=== PATIENT | female | born 1955 | race Caucasian/White ===

== ENCOUNTER 2016-08-21 12:40 | Emergency (ER) | payer OTHER ==
[~2016-08-21] VITALS: Ht 162.6 cm; Wt 88.9 kg
[~2016-08-21 12:40] MED LIST: ATOR1TAB18 PO; CANA100T PO; CARV12.52 PO; CYCL1TAB29 PO; FLUO40CA PO; GABA300C5 PO; GLIP5TAB8 PO; HYDR-3533 PO; HYDR25TA5 PO; LEVO-154 PO; LISI40TA PO; METF1000 PO; XANA1TAB2 PO
[2016-08-21 12:50] VITALS: BP 192/104; PULSE 78; RESP 16; TEMP 98.2; O2SAT 97
[2016-08-21] MEDS ORDERED: DICL75TA PO ×2 (13:48→14:57)
[2016-08-21] MEDS ORDERED: ZANT150T2 PO ×2 (13:48→14:57)
[2016-08-21] MEDS ORDERED: ASPI1TAB69 PO ×2 (13:48→14:57)
[2016-08-21] MEDS ORDERED: SERT-129 PO ×2 (13:48→14:57)
[2016-08-21] MEDS ORDERED: SODIUM CHLORIDE 0.9% FLUSH 5 ML FLUSH IVF PRN (14:00)
[2016-08-21] MEDS ORDERED: ASPIRIN 81 MG CHEW TAB PO ONE (14:00)
[2016-08-21] MEDS ORDERED: LORazepam 2 MG/ML VIAL IV PUSH ONE (14:00)
[2016-08-21 14:14] LABS: AUTOMATED NEUTROPHIL # 4.9 TH/MM3 (1.8-7.7); BASOPHIL % 0.5 % (0.0-2.0); EOSINOPHIL # 0.3 TH/MM3 (0-0.4); EOSINOPHIL % 4.2 % (0.0-4.0); HEMATOCRIT 39.5 % (35.0-46.0); HEMO FLAGS DIFF FINAL; LYMPH % 27.7 % (9.0-44.0); LYMPHOCYTE # 2.1 TH/MM3 (1.0-4.8); MEAN CELL VOLUME 89.8 FL (80.0-100.0); MEAN CORPUSCULAR HEMOGLOBIN 30.1 PG (27.0-34.0); MEAN CORPUSCULAR HGB CONC 33.5 % (32.0-36.0); MONO % 5.1 % (0.0-8.0); NEUT % 62.5 % (16.0-70.0); PLATELET COUNT 215 TH/MM3 (150-450); RED BLOOD COUNT 4.39 MIL/MM3 (4.00-5.30); RED CELL DISTRIBUTION WIDTH 12.7 % (11.6-17.2); WHITE BLOOD COUNT 7.7 TH/MM3 (4.0-11.0)
--- NOTE | 2016-08-21 14:19 | PD ---
HPI . Medication refill request Chief Complaint: Chest Pain Time Seen by Provider: 13:53 Travel History International Travel<30 days: No Contact w/Intl Traveler<30days: No Traveled to known affect area: No History of Present Illness HPI Patient presents with multiple complaints. She states that she has been out of her medication for at least a month. She states that she lost her usual insurance at the first of the year. This has caused her to lose her primary care physician. She states that she does have new insurance in place and has an appointment her physician on September 21. In the meantime however she has run out of all of her medications. Her complaints today include insomnia, poor concentration, weight gain, chest pain, shortness of breath, headache and blurred vision. DURATION: One month TIMING: Continuous CONTEXT: Out of medications MODIFYING FACTORS: Lost her insurance PFSH Past Medical History Hx Anticoagulant Therapy: Yes (asa 81mg) Arthritis: Yes (RHEUMATOID AND OSTEO) Asthma: Yes Anxiety: Yes Depression: Yes Heart Rhythm Problems: No Cancer: No Cardiac Catheterization: No Cardiovascular Problems: Yes (htn on meds) High Cholesterol: Yes Congestive Heart Failure: Yes COPD: Yes Diabetes: Yes Patient Takes Glucophage: No Diminished Hearing: No GERD: Yes Hypertension: Yes Implanted Vascular Access Dvce: No Kidney Stones: Yes Musculoskeletal: Yes (CHRONIC PAIN) Respiratory: Yes (copd, chf) Immunizations Current: Yes Myocardial Infarction: No Seizures: Yes (after surgery ) Thyroid Disease: Yes (Hypo-) Tetanus Vaccination: > 5 Years Influenza Vaccination: Yes ?: Not Menopausal: Yes Dilation and Curettage (D&C): Yes Tubal Ligation: Yes Past Surgical History Abdominal Surgery: Yes (exploratory lap) Cholecystectomy: Yes Coronary Artery Bypass Graft: No Tonsillectomy: Yes (and adenoids) Other Surgery: Yes Social History Alcohol Use: No Tobacco Use: Yes (1 ppd) Substance Use: No Allergies-Medications (Allergen,Severity, Reaction): Coded Allergies: Clindamycin (Verified Allergy, Severe, RASH, 08/21/16) Penicillin (Verified Allergy, Severe, "FACE SWELLS UP", 08/21/16) Reported Meds & Prescriptions Reported Meds & Active Scripts Active Reported Zantac (Ranitidine HCl) 150 Mg Tab 150 Mg PO DAILY Aspirin 81 Mg Tabdr 81 Mg PO DAILY Sertraline (Sertraline HCl) 100 Mg Tab 100 Mg PO DAILY Diclofenac Sodium DR (Diclofenac Sodium) 75 Mg Tabdr 75 Mg PO BID Xanax (Alprazolam) 1 Mg Tab 1 Mg PO TID PRN Metformin (Metformin HCl) 1,000 Mg Tab 1,000 Mg PO BIDPC With meals Lisinopril 40 Mg Tab 40 Mg PO DAILY Levothyroxine (Levothyroxine Sodium) 175 Mcg Tab 175 Mcg PO DAILY Invokana (Canagliflozin) 100 Mg Tab Unknown Dose PO DAILY Take before 1st meal of day. Hydrochlorothiazide 25 Mg Tab 25 Mg PO DAILY Glipizide 5 Mg Tab 5 Mg PO BIDAC Take 30 minutes before a meal Flexeril (Cyclobenzaprine HCl) 10 Mg Tab 10 Mg PO HS Carvedilol 12.5 Mg Tab 12.5 Mg PO BID Atorvastatin (Atorvastatin Calcium) 80 Mg Tab 80 Mg PO HS Review of Systems Except as stated in HPI: all other systems reviewed are Neg General / Constitutional: Positive: Weight Gain, No: Fever, Chills Eyes: Positive: Blurred Vision HENT: Positive: Headaches Cardiovascular: Positive: Chest Pain or Discomfort Respiratory: Positive: Shortness of Breath Neurologic: Positive: Headache, No: Focal Abnormalities Psychiatric: Positive: Anxiety, Depression, Other (poor concentration) Physical Exam Narrative GENERAL: Tearful older woman who is otherwise in no acute distress. SKIN: Warm and dry. HEAD: Atraumatic. Normocephalic. EYES: Pupils equal and round. ENT: No nasal bleeding or discharge. Mucous membranes pink and moist. NECK: Trachea midline. Neck is supple. CARDIOVASCULAR: Regular rate and rhythm. Heart sounds are normal. RESPIRATORY: No accessory muscle use. Lungs are clear with full air movement throughout. GASTROINTESTINAL: Abdomen soft, non-tender, nondistended. MUSCULOSKELETAL: No obvious deformities. No edema. NEUROLOGICAL: Awake and alert. No obvious cranial nerve deficits. Motor grossly within normal limits. Normal speech. [id number] exam is intact. Gait is normal. PSYCHIATRIC: Appropriate mood and affect; insight and judgment normal. Data Data Last Documented VS Vital Signs Date Time Temp Pulse Resp B/P Pulse Ox O2 Delivery O2 Flow Rate FiO2 08/21/16 13:41 78 08/21/16 12:50 98.2 16 192/104 97 Orders Basic Metabolic Panel (Bmp) (08/21/16 13:58) Ckmb (Isoenzyme) Profile (08/21/16 13:58) Complete Blood Count With Diff (08/21/16 13:58) Magnesium (Mg) (08/21/16 13:58) Troponin I (08/21/16 13:58) Chest, Single Ap (08/21/16 13:58) Iv Access Insert/Monitor (08/21/16 13:58) Aspirin Chew (Aspirin Chew) (08/21/16 14:00) Sodium Chloride 0.9% Flush (Ns Flush) (08/21/16 14:00) Lorazepam Inj (Ativan Inj) (08/21/16 14:00) Thyroid Stimulating Hormone (08/21/16 13:58) CKMB (08/21/16 14:07) CKMB% (08/21/16 14:07) Labs Laboratory Tests Test 08/21/16 14:07 White Blood Count 7.7 TH/MM3 Red Blood Count 4.39 MIL/MM3 Hemoglobin 13.2 GM/DL Hematocrit 39.5 % Mean Corpuscular Volume 89.8 FL Mean Corpuscular Hemoglobin 30.1 PG Mean Corpuscular Hemoglobin 33.5 % Concent Red Cell Distribution Width 12.7 % Platelet Count 215 TH/MM3 Mean Platelet Volume 9.1 FL Neutrophils (%) (Auto) 62.5 % Lymphocytes (%) (Auto) 27.7 % Monocytes (%) (Auto) 5.1 % Eosinophils (%) (Auto) 4.2 % Basophils (%) (Auto) 0.5 % Neutrophils # (Auto) 4.9 TH/MM3 Lymphocytes # (Auto) 2.1 TH/MM3 Monocytes # (Auto) 0.4 TH/MM3 Eosinophils # (Auto) 0.3 TH/MM3 Basophils # (Auto) 0.0 TH/MM3 CBC Comment DIFF FINAL Differential Comment Sodium Level 140 MEQ/L Potassium Level 4.1 MEQ/L Chloride Level 105 MEQ/L Carbon Dioxide Level 27.7 MEQ/L Anion Gap 7 MEQ/L Blood Urea Nitrogen 21 MG/DL Creatinine 0.94 MG/DL Estimat Glomerular Filtration 60 ML/MIN Rate Random Glucose 114 MG/DL Calcium Level 9.5 MG/DL Magnesium Level 2.2 MG/DL Total Creatine Kinase 135 U/L Creatine Kinase MB 3.0 NG/ML Troponin I LESS THAN 0.02 NG/ML Thyroid Stimulating Hormone 2.820 uIU/ML 3rd Gen [facility] Medical Decision Making Medical Screen Exam Complete: Yes Emergency Medical Condition: Yes Medical Record Reviewed: Yes (medical records reviewed. She has multiple medical problems including hypertension, diabetes, hyperlipidemia, hypothyroidism, GERD, depression and noncompliance.) Interpretation(s) EKG shows a left bundle branch block. Sinus rhythm. Differential Diagnosis Differential diagnosis of chest pain includes but is not limited to musculoskeletal pain, pulmonary embolism, acute coronary syndrome, pneumonia, pleurisy Narrative Course Patient presents because she is out of all of her medications. She has numerous complaints related to this. I have ordered basic labs, EKG and chest x -ray to rule out hypertensive emergency. CBC & BMP Diagram 08/21/16 14:07 Cardiac enzymes are negative. Last Impressions Chest X-Ray 08/21/16 1688 Signed Impressions: Service Date/Time: Sunday, August 21, 2016 14:10 - CONCLUSION: No evidence of acute cardiopulmonary disease. Keo Krishnamurthy MD The chest x-ray was independently viewed by me. I have not found an acute problem here today. I will refill her usual medications for a 1 month supply. Diagnosis Primary Impression: Chest pain Qualified Code: R07.9 - Chest pain, unspecified type Additional Impression: Essential hypertension Patient Instructions: General Instructions, Medication Refill, ED, Medicine Refill (ED) Med/Other Pt SpecificInfo: Prescription(s) given Scripts Ranitidine (Zantac)150 Mg [id number] Mg PO DAILY #30 TAB Ref 0 Prov:Marily Collins MD 08/21/16 Aspirin 81 Mg [id number] Mg PO DAILY 30 Days Prov:Marily Collins MD 08/21/16 Sertraline 100 Mg [id number] Mg PO DAILY #30 TAB Ref 0 Prov:Marily Collins MD 08/21/[address] 75 Mg Tabdr75 Mg PO BID #60 TAB Ref 0 Prov:Marily Collins MD 08/21/16 Disposition: 01 DISCHARGE HOME Condition: Stable Marily Collins MD Aug 21, 2016 14:19
--- NOTE | 2016-08-21 14:21 | RADHPO ---
EXAM DATE/TIME: 08/21/2016 14:10 [facility] COMPARISON: CHEST PA & LAT, April 09, 2015, 15:14. INDICATIONS : Chest pain. MEDICAL HISTORY : Chronic obstructive pulmonary disease. Congestive heart failure. SURGICAL HISTORY : None. ENCOUNTER: Initial ACUITY: 2 weeks PAIN SCORE: 6/10 LOCATION: Bilateral chest FINDINGS: A single view of the chest demonstrates the lungs to be symmetrically aerated without evidence of mas s, infiltrate or effusion. The cardiomediastinal contours are unremarkable. Osseous structures are intact. CONCLUSION: No evidence of acute cardiopulmonary disease. Keo Krishnamurthy MD on August 21, 2016 at 14:19 Board Certified Radiologist. This report was verified electronically.
[2016-08-21 14:26] LABS: CHLORIDE 105 MEQ/L (98-107); POTASSIUM 4.1 MEQ/L (3.5-5.1); SODIUM (NA) 140 MEQ/L (136-145)
[2016-08-21 14:29] LABS: ANION GAP 7 MEQ/L (5-15); BICARBONATE 27.7 MEQ/L (21.0-32.0); BLOOD UREA NITROGEN 21 MG/DL (7-18); MAGNESIUM 2.2 MG/DL (1.5-2.5)
[2016-08-21 14:32] LABS: GLOMERULAR FILTRATION RATE 60 ML/MIN (>89)
[2016-08-21 14:35] LABS: CREATINE KINASE 135 U/L (26-192)
[2016-08-21 15:23] VITALS: BP 145/89
--- NOTE | 2016-08-22 18:40 | EKG ---
Date Performed: 08/21/2016 Time Performed: 12:57:12 PTAGE: 61 years EKG: Sinus rhythm Left axis deviation Left bundle branch block Compared to prior tracing no significant change Abnorma l ECG PREVIOUS TRACING : 12/30/2014 13.17 DOCTOR: Bernabe Valdez Interpretating Date/Time 08/22/2016 18:39:22
[2016-11-19] MEDS ORDERED: ATOR20TA15 PO (10:27)
[2016-11-20] MEDS ORDERED: PLAV75TA29 PO (14:22)
== END 2016-08-21 15:25 | disposition home or self-care (01) ==
LOC: PHED 12:40
DX: R07.9 Chest pain, unspecified (principal); I10 Essential (primary) hypertension; I44.7 Left bundle-branch block, unspecified; Z79.01 Long term (current) use of anticoagulants; J45.909 Unspecified asthma, uncomplicated; E78.00 Pure hypercholesterolemia, unspecified; I50.9 Heart failure, unspecified; J44.9 Chronic obstructive pulmonary disease, unspecified; E11.9 Type 2 diabetes mellitus without complications; E07.9 Disorder of thyroid, unspecified
CPT/HCPCS: 71010; 80048; 82550; 82552; 83735; 84443; 84484; 85025; 93005; 96374; 99285; J2060

== ENCOUNTER 2016-09-15 03:34 | Observation (INO) | payer OTHER ==
[~2016-09-15] VITALS: Ht 162.6 cm; Wt 87.7 kg
[2016-09-15] VITALS (8 sets, daily range): BP systolic 133–190; BP diastolic 70–101; PULSE 73–82; RESP 18; TEMP 98–98.2; O2SAT 94–98
[~2016-09-15 03:34] MED LIST changes: +ASPI1TAB69 PO; +DICL75TA PO; -FLUO40CA PO; -GABA300C5 PO; -HYDR-3533 PO; +SERT-129 PO; +ZANT150T2 PO
[2016-09-15] MEDS ORDERED: FENO1TAB46 PO ×2 (04:00→16:03)
[2016-09-15] MEDS ORDERED: SODIUM CHLOR 0.9% 1000 ML INJ 1,000 ML IV SCH (04:14)
[2016-09-15] MEDS ORDERED: MORPHINE SULFATE 4 MG/ML INJ IV PUSH ONE ×2 (04:15→06:45)
[2016-09-15] MEDS ORDERED: LIDOCAINE VISCOUS 2% SOLN 15 ML UDC PO ONE (04:15)
[2016-09-15] MEDS ORDERED: FAMOTIDINE 20 MG/2 ML VIAL IV PUSH ONE (04:15)
[2016-09-15] MEDS ORDERED: ALUMINUM/MAGNESIUM/SIMETH 30 ML CUP PO ONE (04:15)
[2016-09-15] MEDS ORDERED: ONDANSETRON HCL 4 MG/2 ML VIAL IVP ONE (04:15)
[2016-09-15 04:36] LABS: AUTOMATED NEUTROPHIL # 7.8 TH/MM3 (1.8-7.7); BASOPHIL # 0.3 TH/MM3 (0-0.2); BASOPHIL % 2.5 % (0.0-2.0); BLOOD, URINE NEG (NEG); EOSINOPHIL # 0.3 TH/MM3 (0-0.4); GLUCOSE,URINE NEG (NEG); HEMATOCRIT 40.6 % (35.0-46.0); HEMO FLAGS DIFF FINAL; KETONE, URINE NEG (NEG); LYMPH % 16.7 % (9.0-44.0); LYMPHOCYTE # 1.8 TH/MM3 (1.0-4.8); MEAN CELL VOLUME 88.9 FL (80.0-100.0); MEAN CORPUSCULAR HEMOGLOBIN 30.1 PG (27.0-34.0); MEAN CORPUSCULAR HGB CONC 33.9 % (32.0-36.0); MONO % 4.2 % (0.0-8.0); NEUT % 73.6 % (16.0-70.0); NITRITE,URINE NEG (NEG); PLATELET COUNT 226 TH/MM3 (150-450); RED BLOOD COUNT 4.57 MIL/MM3 (4.00-5.30); RED CELL DISTRIBUTION WIDTH 12.4 % (11.6-17.2); WHITE BLOOD COUNT 10.7 TH/MM3 (4.0-11.0)
[2016-09-15 04:43] LABS: URINE COLOR YELLOW (YELLW/STRAW)
[2016-09-15 04:44] LABS: BACTERIA, URINE OCC /hpf; MUCUS URINE OCC /lpf (OCC); POTASSIUM 3.7 MEQ/L (3.5-5.1); SQUAMOUS EPITHELIAL CELL URINE 0-5 /hpf (0-5)
[2016-09-15 04:45] LABS: COMMENT (UR) CULT NOT INDICATED; CULTURE IF INDICATED CULT NOT INDICATED
[2016-09-15 04:48] LABS: APTT (PATIENT) 26.2 SEC (24.3-30.1); BICARBONATE 24.5 MEQ/L (21.0-32.0); PROTHROMBIN TIME - PATIENT 10.7 SEC (9.8-11.6)
[2016-09-15 04:52] LABS: INDIRECT BILIRUBIN 0.3 MG/DL (0.0-0.8); TOTAL BILIRUBIN ADULT 0.4 MG/DL (0.2-1.0)
[2016-09-15] MEDS: SODIUM CHLORIDE 0.9% FLUSH 10 ML FLUSH IV FLUSH PRN ×2 (05:16→05:25)
--- NOTE | 2016-09-15 05:36 | PD ---
HPI Chief Complaint: Flank/Kidney Pain Time Seen by Provider: 03:55 Travel History International Travel<30 days: No Contact w/Intl Traveler<30days: No Traveled to known affect area: No History of Present Illness HPI Patient is a 61 year old female who comes in complaining of epigastric pain and burning in her chest for 2 days. She also reports right flank pain. She has had some nausea, but denies vomiting. She also reports episodes of diaphoresis. She denies fever. She says she had some dark urine yesterday, but it cleared today. She denies any dysuria. She says she occasionally feels SOB. PFSH Past Medical History Hx Anticoagulant Therapy: Yes (asa 81mg) Arthritis: Yes (RHEUMATOID AND OSTEO) Asthma: Yes Anxiety: Yes Depression: Yes Heart Rhythm Problems: No Cancer: No Cardiac Catheterization: No Cardiovascular Problems: Yes (htn on meds) High Cholesterol: Yes Congestive Heart Failure: Yes COPD: Yes Diabetes: Yes Patient Takes Glucophage: Yes Diminished Hearing: No GERD: Yes Hypertension: Yes Implanted Vascular Access Dvce: No Kidney Stones: Yes Musculoskeletal: Yes (CHRONIC PAIN) Respiratory: Yes (copd, chf) Immunizations Current: Yes Myocardial Infarction: No Seizures: Yes (after surgery ) Thyroid Disease: Yes (Hypo-) Menopausal: Yes Dilation and Curettage (D&C): Yes Tubal Ligation: Yes Past Surgical History Abdominal Surgery: Yes (exploratory lap) Cholecystectomy: Yes Coronary Artery Bypass Graft: No Tonsillectomy: Yes (and adenoids) Other Surgery: Yes Social History Alcohol Use: No Tobacco Use: Yes (1/2ppd) Substance Use: No Allergies-Medications (Allergen,Severity, Reaction): Coded Allergies: Clindamycin (Verified Allergy, Severe, RASH, 08/21/16) Penicillin (Verified Allergy, Severe, "FACE SWELLS UP", 08/21/16) Reported Meds & Prescriptions Reported Meds & Active Scripts Active Zantac (Ranitidine HCl) 150 Mg Tab 150 Mg PO DAILY Aspirin 81 Mg Tabdr 81 Mg PO DAILY [address] (Diclofenac Sodium) 75 Mg Tabdr 75 Mg PO BID Reported Fenofibrate 40 Mg Tab 40 Mg PO DAILY Xanax (Alprazolam) 1 Mg Tab 1 Mg PO TID PRN Levothyroxine (Levothyroxine Sodium) 175 Mcg Tab 175 Mcg PO DAILY Hydrochlorothiazide 25 Mg Tab 25 Mg PO DAILY Glipizide 5 Mg Tab 5 Mg PO BIDAC Take 30 minutes before a meal Review of Systems Except as stated in HPI: all other systems reviewed are Neg General / Constitutional: No: Fever Eyes: No: Blurred Vision HENT: No: Headaches Cardiovascular: Positive: Chest Pain or Discomfort Respiratory: Positive: Shortness of Breath Gastrointestinal: Positive: Nausea, Abdominal Pain, No: Vomiting Genitourinary: Positive: Flank Pain, No: Dysuria Musculoskeletal: No: Edema Skin: No Change in Pigmentation Neurologic: No: Weakness, Dizziness Physical Exam Narrative GENERAL: Awake and alert, in no acute distress. SKIN: Focused skin assessment warm/dry. HEAD: Atraumatic. Normocephalic. EYES: Pupils equal and round. No scleral icterus. ENT: Mucous membranes pink and moist. NECK: Trachea midline. No JVD. CARDIOVASCULAR: Regular rate and rhythm. No murmur appreciated. RESPIRATORY: No accessory muscle use. Clear to auscultation. Breath sounds equal bilaterally. GASTROINTESTINAL: Abdomen soft, =nondistended. Right CVA tenderness. Tender to palpation of the epigastric area. MUSCULOSKELETAL: No obvious deformities. No clubbing. No cyanosis. No edema. NEUROLOGICAL: Awake and alert. No obvious cranial nerve deficits. Motor grossly within normal limits. Normal speech. PSYCHIATRIC: Appropriate mood and affect; insight and judgment normal. Data Data Last Documented VS Vital Signs Date Time Temp Pulse Resp B/P Pulse Ox O2 Delivery O2 Flow Rate FiO2 09/15/16 05:07 73 170/77 96 Room Air 09/15/16 03:40 98.0 18 Orders Basic Metabolic Panel (Bmp) (09/15/16 04:14) Complete Blood Count With Diff (09/15/16 04:14) Lipase (09/15/16 04:14) Prothrombin Time / Inr (Pt) (09/15/16 04:14) Act Partial Throm Time (Ptt) (09/15/16 04:14) Urinalysis - C+S If Indicated (09/15/16 04:14) Ua Includes Microscopic (09/15/16 04:14) Ct Abd/Pel W/O Iv Contrast (09/15/16 04:14) Iv Access Insert/Monitor (09/15/16 04:14) Ecg Monitoring (09/15/16 04:14) Oximetry (09/15/16 04:14) Morphine Inj (Morphine Inj) (09/15/16 04:15) Ondansetron Inj (Zofran Inj) (09/15/16 04:15) Sodium Chlor 0.9% 1000 Ml Inj (Ns 1000 M (09/15/16 04:14) Sodium Chloride 0.9% Flush (Ns Flush) (09/15/16 04:15) Famotidine Inj (Pepcid Inj) (09/15/16 04:15) Al-Mag Hy-Si 40-40-4 Mg/Ml Liq (Mag-Al P (09/15/16 04:15) Lidocaine 2% Viscous (Xylocaine 2% Visco (09/15/16 04:15) Hepatic Functional Panel (09/15/16 04:14) Troponin I (09/15/16 04:14) Electrocardiogram (09/15/16 ) Aspirin Chew (Aspirin Chew) (09/15/16 06:00) Labs Laboratory Tests Test 09/15/16 04:10 White Blood Count 10.7 TH/MM3 Red Blood Count 4.57 MIL/MM3 Hemoglobin 13.8 GM/DL Hematocrit 40.6 % Mean Corpuscular Volume 88.9 FL Mean Corpuscular Hemoglobin 30.1 PG Mean Corpuscular Hemoglobin 33.9 % Concent Red Cell Distribution Width 12.4 % Platelet Count 226 TH/MM3 Mean Platelet Volume 10.2 FL Neutrophils (%) (Auto) 73.6 % Lymphocytes (%) (Auto) 16.7 % Monocytes (%) (Auto) 4.2 % Eosinophils (%) (Auto) 3.0 % Basophils (%) (Auto) 2.5 % Neutrophils # (Auto) 7.8 TH/MM3 Lymphocytes # (Auto) 1.8 TH/MM3 Monocytes # (Auto) 0.5 TH/MM3 Eosinophils # (Auto) 0.3 TH/MM3 Basophils # (Auto) 0.3 TH/MM3 CBC Comment DIFF FINAL Differential Comment Prothrombin Time 10.7 SEC Prothromb Time International 1.0 RATIO Ratio Activated Partial 26.2 SEC Thromboplast Time Urine Color YELLOW Urine Turbidity CLEAR Urine pH 6.0 Urine Specific [place] 1.016 Urine Protein NEG mg/dL Urine Glucose (UA) NEG mg/dL Urine Ketones NEG mg/dL Urine Occult Blood NEG Urine Nitrite NEG Urine Bilirubin NEG Urine Leukocyte Esterase SMALL Urine WBC 3-5 /hpf Urine Squamous Epithelial 0-5 /hpf Cells Urine Bacteria OCC /hpf Urine Mucus OCC /lpf Microscopic Urinalysis Comment CULT NOT INDICATED Sodium Level 139 MEQ/L Potassium Level 3.7 MEQ/L Chloride Level 104 MEQ/L Carbon Dioxide Level 24.5 MEQ/L Anion Gap 11 MEQ/L Blood Urea Nitrogen 23 MG/DL Creatinine 0.97 MG/DL Estimat Glomerular Filtration 58 ML/MIN Rate Random Glucose 186 MG/DL Calcium Level 10.0 MG/DL Total Bilirubin 0.4 MG/DL Direct Bilirubin 0.1 MG/DL Indirect Bilirubin 0.3 MG/DL Aspartate Amino Transf 13 U/L (AST/SGOT) Alanine Aminotransferase 18 U/L (ALT/SGPT) Alkaline Phosphatase 95 U/L Troponin I 0.02 NG/ML Total Protein 7.1 GM/DL Albumin 3.7 GM/DL Lipase 142 U/L [facility] Medical Decision Making Medical Screen Exam Complete: Yes Emergency Medical Condition: Yes Medical Record Reviewed: Yes Interpretation(s) ECG shows left bundle branch block, this is old. Differential Diagnosis ACS versus gastritis versus GERD versus renal stone versus UTI versus pyelonephritis Narrative Course Patient is a 61-year-old female comes in complaining of epigastric pain and chest burning. Exam shows tenderness in the epigastric area. IV established, labs sent. 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 Labs show no acute abnormalities. CT of the abdomen and pelvis show no acute abnormalities. Patient given GI cocktail, aspirin, morphine. She reports feeling better. She is still having some chest pain. Patient will be placed in observation for ACS rule out due to atypical chest pain and history of diabetes and hypertension. Diagnosis Primary Impression: Atypical chest pain Admitting Information Admitting Physician Requests: Observation Mahogany Pate MD Sep 15, 2016 05:36
--- NOTE | 2016-09-15 05:39 | RADHPO ---
EXAM DATE/TIME: 09/15/2016 04:48 [facility] COMPARISON: CT ABDOMEN & PELVIS W CONTRAST, January 12, 2015, 17:18. CT THORAX W/O CONTRAST, April 09, 2015, 16 :53. CT ABDOMEN & PELVIS W/O CONTRAST, March 05, 2014, 21:46. INDICATIONS : Right flank pain. ORAL CONTRAST: No oral contrast ingested. RADIATION DOSE: 23.24 CTDIvol (mGy) MEDICAL HISTORY : Gastroesophageal reflux disease. SURGICAL HISTORY : Cholecystectomy. Tubal ligation. ENCOUNTER: Initial ACUITY: 2 days PAIN SCALE: 7/10 LOCATION: Right flank TECHNIQUE: Volumetric scanning of the abdomen and pelvis was performed. Using automated exposure control and ad justment of the mA and/or kV according to patient size, radiation dose was kept as low as reasonably achievable to obtain optimal diagnostic quality images. FINDINGS: LOWER LUNGS: A long-term stable noncalcified granulomas seen within the lateral segment of the right middle lobe a nd left lower lobe. Lung bases are otherwise clear. LIVER: Homogeneous density without lesion. There is no dilation of the biliary tree. Gallbladder is surgica lly absent. SPLEEN: Normal size without lesion. PANCREAS: Within normal limits. KIDNEYS: Normal in size and shape. There is no mass, stone, or hydronephrosis. An 11 mm exophytic cortical le mona is seen involving the lateral upper pole the right. This is long-term stable. ADRENAL GLANDS: Within normal limits. VASCULAR: There is no aortic aneurysm. BOWEL/MESENTERY: The stomach, small bowel, and colon demonstrate no acute abnormality. There is no free intraperitone al air or fluid. Scattered colonic diverticuli. No acute inflammation. ABDOMINAL WALL: Within normal limits. RETROPERITONEUM: There is no lymphadenopathy. BLADDER: No wall thickening or mass. REPRODUCTIVE: Within normal limits. INGUINAL: There is no lymphadenopathy or hernia. MUSCULOSKELETAL: Within normal limits for patient age. CONCLUSION: 1. No abnormality observed to explain the patient's pain. 2. 11 mm cortical lesion involving the right kidney is long-term stable. It is poorly characterized o n this study. Ultrasound could be used to further evaluate if clinically warranted. 3. Prior cholecystectomy. 4. Colonic diverticulosis. 5. Small granulomas in the lung bases. Jamaal Chery Jr., MD on September 15, 2016 at 5:32 Board Certified Radiologist. This report was verified electronically.
[2016-09-15] MEDS ORDERED: ASPIRIN 81 MG CHEW TAB CHEW ONE (06:00)
[2016-09-15] MEDS ORDERED: SODIUM CHLORIDE 0.9% FLUSH 10 ML FLUSH IV FLUSH PRN (06:15)
[2016-09-15] MEDS ORDERED: GLUCAGON 1 MG/ML VIAL OTHER PRN (08:00)
[2016-09-15] MEDS ORDERED: DEXTROSE 50% IN WATER 50 ML VIAL(D50) IV PUSH PRN (08:00)
[2016-09-15] MEDS ORDERED: cloNIDine HCL 0.1 MG TAB PO PRN (08:15)
[2016-09-15] MEDS ORDERED: LEVOTHYROXINE SODIUM 100 MCG TAB PO SCH (09:00)
[2016-09-15] MEDS ORDERED: HYDROCHLOROTHIAZIDE 25 MG TAB PO SCH (09:00)
[2016-09-15] MEDS ORDERED: NON-FORMULARY DRUG (Levothyroxine 175 MCG) PO SCH (09:00)
[2016-09-15] MEDS ORDERED: LEVOTHYROXINE SODIUM 75 MCG TAB PO SCH (09:00)
[2016-09-15] MEDS ORDERED: SODIUM CHLORIDE 0.9% FLUSH 10 ML FLUSH SCH (09:00)
[2016-09-15] MEDS ORDERED: FENOFIBRATE 40 MG PO SCH (09:00)
--- NOTE | 2016-09-15 09:00 | HHI.HP ---
[facility] Brittni Hinton MD Admission Diagnosis Chest pain Diagnoses: (1) Atypical chest pain Diagnosis: Principal (2) Epigastric abdominal pain Diagnosis: Principal (3) Right flank pain Diagnosis: Principal (4) Hypertensive urgency Diagnosis: Principal (5) Prerenal azotemia Diagnosis: Principal (6) Cough Diagnosis: Principal Chief Complaint: abdominal pain, R flank pain, chest pain Travel History International Travel<30 Days: No Contact w/Intl Traveler <30 Da: No Traveled to Known Affected Are: No History of Present Illness 61-year-old female with history of CHF, hypertension, hyperlipidemia, diabetes, GERD, hypothyroidism, COPD, anxiety and depression, and tobacco use presents with complaint of epigastric abdominal pain, right flank pain, and chest pain. Patient states for the past 2 nights she was unable to sleep due to the epigastric abdominal pain which was coming in waves, but actually started several weeks ago. She had come to the ED on 08/21/16 for chest pain and attributed to indigestion at that time. Patient states she thought her symptoms this time were also indigestion but states the chest pain was worse. She states it felt like a "burning and gnawing" over the left upper chest and under the breast and lasted approximately 45 minutes. No radiation to neck/jaws /arms/back; denies new paresthesias. She also had cold sweats and chills. She admits to nausea and 3 episodes of bilious emesis but denies any hematemesis or coffee-ground emesis. States she took Pepto dismal one Tums at home without relief. Patient states she ran out of her Zantac 5 days ago in addition to her other medications she has also run out of. She does admit to taking aspirin and Motrin as well as diclofenac for arthritis. Denies any hematochezia or melena. She states her right kidney was also painful. She admits to increased urgency or frequency of urination for the past couple of months but denies any dysuria. She admits to incontinence once in a while. She additionally states she's had cold symptoms including runny nose and cough with mild light green sputum production for the past 2 months. She did have a chest x-ray in the ED 3 weeks ago which was normal. Admits to HAs, blurred vision (which she c/o on last ED visit), dizziness at times. Review of Systems Constitutional: COMPLAINS OF: Diaphoretic episodes, Chills, Dizziness Eyes: COMPLAINS OF: Blurred vision Ears, nose, mouth, throat: COMPLAINS OF: Running Nose Respiratory: COMPLAINS OF: Cough, Sputum production Cardiovascular: COMPLAINS OF: Chest pain, Lower Extremity Edema (chronic) Gastrointestinal: COMPLAINS OF: Abdominal pain, Nausea, Vomiting, DENIES: Black stools, Bloody stools, Diarrhea, Difficulty Swallowing Genitourinary: COMPLAINS OF: Urinary frequency, Urgency, DENIES: Dysuria Musculoskeletal: DENIES: Back pain, Neck pain Hematologic/lymphatic: COMPLAINS OF: Lymphadenopathy (L neck) Neurologic: COMPLAINS OF: Headache, DENIES: Paresthesias ENT: + broken tooth Past Family Social History Past Medical History Hyperlipidemia Hypertension CHF DM COPD GERD Kidney stones Seizures after cholecystectomy and knee surgery Rheumatoid and osteoarthritis Anxiety Depression Hypothyroidism Past Surgical History Exploratory laparoscopy Cholecystectomy Tonsillectomy and adenoidectomy Arthroscopy left knee Right carpal tunnel surgery Tubal ligation D&C Reported Medications Zantac (Ranitidine HCl) 150 Mg Tab 150 Mg PO DAILY Aspirin 81 Mg Tabdr 81 Mg PO DAILY [address] (Diclofenac Sodium) 75 Mg Tabdr 75 Mg PO BID Fenofibrate 40 Mg Tab 40 Mg PO DAILY Xanax (Alprazolam) 1 Mg Tab 1 Mg PO TID PRN Levothyroxine (Levothyroxine Sodium) 175 Mcg Tab 175 Mcg PO DAILY Hydrochlorothiazide 25 Mg Tab 25 Mg PO DAILY Glipizide 5 Mg Tab 5 Mg PO BIDAC Take 30 minutes before a meal Allergies: Coded Allergies: Clindamycin (Verified Allergy, Severe, RASH, 08/21/16) Penicillin (Verified Allergy, Severe, "FACE SWELLS UP", 08/21/16) Family History Brother: [place] and quadruple bypass at age 42; awaiting heart transplant Mother: Hyperlipidemia, DM Father: Rheumatic fever as a child, stroke Social History Patient smokes half pack per day of cigarettes. Started smoking at age 15. States she quit for 10 years in her 40's. History of alcoholism. Patient states she had not had any alcohol 9 years until she had a drink last month. History of smoking marijuana once in awhile, but denies current use. Denies any history of other illicit drug use or IVDA. Physical Exam Vital Signs Vital Signs Date Time Temp Pulse Resp B/P Pulse Ox O2 Delivery O2 Flow Rate FiO2 09/15/16 07:00 78 18 171/91 95 Room Air 09/15/16 06:55 78 09/15/16 05:07 73 170/77 96 Room Air 09/15/16 04:49 97 Room Air 09/15/16 03:40 98.0 82 18 190/101 96 Room Air Physical Exam GENERAL: This is a well-nourished, well-developed patient, in no apparent distress. SKIN: No rashes, ecchymoses or lesions. Warm and dry. HEAD: Atraumatic. Normocephalic. EYES: No scleral icterus. No injection or drainage. ENT: Throat without erythema or exudate. Uvula midline. Airway patent. Partially edentulous. The left lower second bicuspid is fractured, but the gingiva appears normal without erythema or swelling; non-tender. No palpable abscess. NECK: Trachea midline. No carotid bruits bilaterally. Enlarged lymph node L tonsillar region. CARDIOVASCULAR: Regular rate and rhythm with split beat. RESPIRATORY: Clear to auscultation. Breath sounds equal bilaterally. Diminished expiratory breath sounds, but no wheezes, rales, or rhonchi. Cough on exam. GASTROINTESTINAL: Normoactive bowel sounds x 4. Abdomen soft, non-tender, nondistended. No guarding. MUSCULOSKELETAL: Trace edema bilateral lower extremities. BACK: No CVA tenderness bilaterally. NEUROLOGICAL: Awake and alert. Motor grossly within normal limits. Normal speech. PSYCHIATRIC: Tearful. Laboratory Laboratory Tests Test 09/15/16 09/15/16 04:10 07:10 White Blood Count 10.7 Red Blood Count 4.57 Hemoglobin 13.8 Hematocrit 40.6 Mean Corpuscular Volume 88.9 Mean Corpuscular Hemoglobin 30.1 Mean Corpuscular Hemoglobin 33.9 Concent Red Cell Distribution Width 12.4 Platelet Count 226 Mean Platelet Volume 10.2 Neutrophils (%) (Auto) 73.6 Lymphocytes (%) (Auto) 16.7 Monocytes (%) (Auto) 4.2 Eosinophils (%) (Auto) 3.0 Basophils (%) (Auto) 2.5 Neutrophils # (Auto) 7.8 Lymphocytes # (Auto) 1.8 Monocytes # (Auto) 0.5 Eosinophils # (Auto) 0.3 Basophils # (Auto) 0.3 CBC Comment DIFF FINAL Differential Comment Prothrombin Time 10.7 Prothromb Time International 1.0 Ratio Activated Partial 26.2 Thromboplast Time Urine Color YELLOW Urine Turbidity CLEAR Urine pH 6.0 Urine Specific [place] 1.016 Urine Protein NEG Urine Glucose (UA) NEG Urine Ketones NEG Urine Occult Blood NEG Urine Nitrite NEG Urine Bilirubin NEG Urine Leukocyte Esterase SMALL Urine WBC 3-5 Urine Squamous Epithelial 0-5 Cells Urine Bacteria OCC Urine Mucus OCC Microscopic Urinalysis Comment CULT NOT INDICATED Sodium Level 139 Potassium Level 3.7 Chloride Level 104 Carbon Dioxide Level 24.5 Anion Gap 11 Blood Urea Nitrogen 23 Creatinine 0.97 Estimat Glomerular Filtration 58 Rate Random Glucose 186 Calcium Level 10.0 Total Bilirubin 0.4 Direct Bilirubin 0.1 Indirect Bilirubin 0.3 Aspartate Amino Transf 13 (AST/SGOT) Alanine Aminotransferase 18 (ALT/SGPT) Alkaline Phosphatase 95 Troponin I 0.02 0.03 Total Protein 7.1 Albumin 3.7 Lipase 142 Total Creatine Kinase 111 Result Diagram: 09/15/1640909/15/16409 Imaging Last Impressions Abdomen/Pelvis CT 09/15/16413 Signed Impressions: Service Date/Time: Thursday, September 15, 2016 04:48 - CONCLUSION: 1. No abnormality observed to explain the patient's pain. 2. 11 mm cortical lesion involving the right kidney is long-term stable. It is poorly characterized on this study. Ultrasound could be used to further evaluate if clinically warranted. 3. Prior cholecystectomy. 4. Colonic diverticulosis. 5. Small granulomas in the lung bases. Jamaal Chery Jr., MD Assessment and Plan Assessment and Plan 61-year-old female with: Atypical chest pain: Burning likely due to GERD, second time presenting to ED for this in the last few weeks. Troponin 0.02-->0.03. EKGs 3 personally interpreted with sinus rhythm, left axis deviation, left bundle branch block. EKG reviewed with same left bundle branch block. -Last troponin and EKG at 1000. Last troponin 0.03. Last EKG same as prior. -Patient received 162 mg of aspirin at 0600 -Nitro prn chest pain -Nuclear stress test to be performed. NPO since 9-10 pm last night. Epigastric abdominal pain: Most likely attributed to GERD. Patient ran out of her Zantac recently. No evidence of GI bleeding. Abdominal exam benign this morning. -Patient received viscous lidocaine, Maalox, Pepcid, Zofran, morphine in ED -Patient has no current pain. -Advised to avoid NSAID use Right flank pain/urinary symptoms: UA personally interpreted with small leukocyte esterase and occult bacteria, but no increase in white blood cells, no nitrites or blood. No culture indicated. CT of the abdomen and pelvis was performed showing a 11 mm cortical lesion to the right kidney, which is long- term and stable, colonic diverticulosis, and small granulomas in the lung bases ; no acute findings. Patient has no CVA tenderness on exam. Hypertensive urgency: BP on arrival 190/101; 171/91 at 0700. Likely attributed to patient running out of her HCTZ. -Resume HCTZ this morning -Clonidine prn Pre-renal azotemia: BUN 23/Cr 0.97. -Patient received 1 L IV normal saline in the ED Hypertensive urgency: BP on arrival 190/101; 171/91 at 0700. Likely attributed to patient running out of her HCTZ. -Resume HCTZ this morning -Clonidine prn Cough: 2 months. WBC normal. -In light of continued chest pain and cough, chest x-ray repeated; personally interpreted with no acute disease. Diabetes: Patient takes Invokana, metformin, and glipizide at home, but ran out of her metformin and Invokana 1 month ago. BGL 186 on arrival. -Hold oral medications for stress test. -Bedside blood glucose checks and low-dose siding scale insulin as needed. HLD and hypothyroidism: Continue home meds Tobacco use: Counselled on risks of continued smoking and different methods of cessation. Advised to discussed the PCP Dental issues/lymphadenopathy: Chronic issue. Advised to discuss with PCP. No acute dental infection evident at this time. DVT prevention: SCDs. Myocardial perfusion scan with no reversibility to suggest ischemia. There are findings suggesting a dilated cardiomyopathy with apical thinning or old apical infarct and diffuse hypokinesis most severe in the region the septum with EF of 37%, intermediate risk. Echo from 2006 with EF 55-60%. Patient does admit to having SOB on activity and woke up SOB the other night. Had pitting edema the other day although not evident today; does not appear to be in acute exacerbation. Discussed with Dr. Patton. Will discontinue HCTZ and start patient on Coreg, Lisinopril, Lasix with KCl. Patient was advised regarding medications including taking BP at home. Will refill fenofibrate and metformin as patient ran out. Advised to continue Zantac and avoid Diclofenac use in regards to GERD. Prior to discharge patient states when she nodded off when I was speaking to her it was because she had chest pain. She has some reproducible tenderness over the L chest and telemetry was reviewed without arrhythmia. Discharge disposition: Home in stable condition. Diet: Heart healthy, Diabetic, GERD Activity: Regular; avoid strenuous activity. Medications: As above Follow up: PCP at scheduled appt on Wednesday Discussed Condition With patient, Denisse Ruano Sep 15, 2016 09:00
--- NOTE | 2016-09-15 09:44 | RADHPO ---
EXAM DATE/TIME: 09/15/2016 09:22 [facility] COMPARISON: CT THORAX W/O CONTRAST, April 09, 2015, 16:53. CHEST PA & LAT, April 09, 2015, 15:14. INDICATIONS : Chest burning. Epigastric pain. Short of breath. Right flank pain. Pt states she was diagnosed with t he flu here approximately 3 weeks ago. MEDICAL HISTORY : Hypothyroidism. Hypercholesterolemia. Arthritis. Hypertension. Peripheral neuropathy. CHF. COPD. Ashtma. GERD. Diabetic. SURGICAL HISTORY : Tonsillectomy. Tubal ligation. Cholecystectomy. D& C. Left knee. Left foot. Right carpal tunnel. ENCOUNTER: Initial ACUITY: 2 days PAIN SCORE: 7/10 LOCATION: chest FINDINGS: PA and lateral views of the chest demonstrate the lungs to be symmetrically aerated without evidence of mass, infiltrate or effusion. Minimal linear scarring or atelectasis in the left lingula. The card iomediastinal contours are unremarkable. Osseous structures are intact. CONCLUSION: No acute cardiopulmonary process. Eran Bergeron MD on September 15, 2016 at 9:40 Board Certified Radiologist. This report was verified electronically.
[2016-09-15] MEDS ORDERED: ONDANSETRON HCL 4 MG/2 ML VIAL IV PRN (09:45)
[2016-09-15] MEDS ORDERED: ACETAMINOPHEN 500 MG CPLT PO PRN (09:45)
[2016-09-15] MEDS ORDERED: NITROGLYCERIN 0.4 MG SL 25 TABS/BTL SL PRN (09:45)
[2016-09-15] MEDS ORDERED: ALPRAZolam 1 MG TAB PO ONE (10:00)
[2016-09-15] MEDS ORDERED: ALPRAZolam 0.5 MG TAB PO ONE (10:00)
[2016-09-15] MEDS ORDERED: INSULIN ASPART SUPPLEMENTAL SCALE SQ SCH (11:00)
--- NOTE | 2016-09-15 11:01 | EKG ---
Date Performed: 09/15/2016 Time Performed: 04:27:24 PTAGE: 61 years EKG: Sinus rhythm Left axis deviation Left bundle branch block Possible inferior infarct - age undetermined No signifi cant change. Abnormal ECG PREVIOUS TRACING : 08/21/2016 12.57 DOCTOR: Lily Styles Interpretating Date/Time 09/15/2016 11:00:31
--- NOTE | 2016-09-15 11:03 | EKG ---
Date Performed: 09/15/2016 Time Performed: 06:08:48 PTAGE: 61 years EKG: Ectopic atrial rhythm Left axis deviation Left bundle branch block Compared to previous tra cing, the patient now appears to be in ectopic atrial rhythm. Abnormal ECG PREVIOUS TRACING : 09/15/2016 04.27 DOCTOR: Lily Styles Interpretating Date/Time 09/15/2016 11:02:06
--- NOTE | 2016-09-15 11:04 | EKG ---
Date Performed: 09/15/2016 Time Performed: 06:55:34 PTAGE: 61 years EKG: Ectopic atrial rhythm Left axis deviation Left bundle branch block No significant change. A bnormal ECG PREVIOUS TRACING : 09/15/2016 06.08 DOCTOR: Lily Styles Interpretating Date/Time 09/15/2016 11:03:08
[2016-09-15] MEDS ORDERED: REGADENOSON INJ 0.4 MG/5 ML SYR IV ONE (12:43)
--- NOTE | 2016-09-15 14:21 | RADHPO ---
EXAM DATE/TIME: 09/15/2016 13:12 [facility] COMPARISON: No previous studies available for comparison. INDICATIONS : Substernal chest pain with nausea. Angina. DOSE: 25.4 mCi Tc99m Myoview at stress. 8.5 mCi Tc99m Myoview at rest. 0.4 mg Lexiscan STRESS SYMPTOMS: Dyspnea. EJECTION FRACTION: 37% MEDICAL HISTORY : Gastroesophageal reflux disease. Chronic obstructive pulmonary disease. Hypothyroidism. Hypertension, hyperlipidemia and depression. SURGICAL HISTORY : Tubal ligation. Tonsillectomy. Cholecystectomy. ENCOUNTER: Initial ACUITY: 3 days PAIN SCALE: 6/10 LOCATION: Substernal chest TECHNIQUE: The patient underwent pharmacologic stress with infusion of prescribed dose. Continuous ECG tracing was monitored during stress. Gated SPECT imaging was performed after stress and conventional SPECT i maging was performed at rest. The examination was performed on a SPECT/CT scanner, both attenuation and non-corrected datasets were reviewed. FINDINGS: DISTRIBUTION: The maximum perfused segment at stress is in the anterior/anterolateral wall. PERFUSION STUDY: The pattern of perfusion at stress shows fixed diminished perfusion to the apex characteristic of api margie thinning or old apical infarct. No reversibility to suggest ischemia. There does appear to be dae e left ventricular dilatation. GATED STUDY: Diffuse hypokinesis, most severe in the region of the septum with a reduced ejection fraction of 37%. CONCLUSION: 1. Scintigraphic findings suggest a dilated cardiomyopathy with apical thinning or old apical infarct . 2. No reversibility to suggest ischemia. 3. Diffuse hypokinesis, most severe in the region of the septum with a reduced ejection fraction of 3 7%. RISK CATEGORY: Intermediate (1-3% Annual Mortality Rate) Eran Bergeron MD on September 15, 2016 at 14:16 Board Certified Radiologist. This report was verified electronically.
[2016-09-15] MEDS ORDERED: ACETAMINOPHEN 325 MG TAB PO ONE (15:30)
[2016-09-15] MEDS ORDERED: CARV6.25 PO (15:34)
[2016-09-15] MEDS ORDERED: FURO1TAB62 PO (15:34)
[2016-09-15] MEDS ORDERED: K-TA10TA PO (15:34)
--- NOTE | 2016-09-15 15:35 | HHI.DCPOC ---
Discharge Care Plan Diagnosis: (1) Atypical chest pain (2) Hypertensive urgency (3) Epigastric abdominal pain (4) Right flank pain (5) Cough (6) Prerenal azotemia Your Health Problems Are: Chest Pain Goals to Promote Your Health * To prevent worsening of your condition and complications * To maintain your health at the optimal level Directions to Meet Your Goals Take your medications as prescribed Follow your dietary instruction Follow activity as directed Keep your appointments as scheduled Take your immunizations and boosters as scheduled If your symptoms worsen call your PCP, if no PCP go to Urgent Care Center or Emergency Room Smoking is Dangerous to Your Health. Avoid second hand smoke Call the 24-hour hour crisis hotline for domestic abuse at Denisse Galvez Sep 15, 2016 15:35
--- NOTE | 2016-09-15 15:40 | TR ---
Date Performed: 09/15/2016 Time Performed: 13:13:05 DOCTOR: Lily Styles DRUG LIST: CLINICAL HISTORY: CHEST PAIN REASON FOR TEST: Chest pain REASON FOR ENDING: OBSERVATION: CONCLUSION: Lexiscan stress test was performed under standard four minute protocol. Radionuclid e was injected one minute prior to ending the test. No electrocardiographic abormalities were present to suggest ischemia. Nuclear imaging and interpretation are pending. COMMENTS:
[2016-09-15] MEDS ORDERED: METF1000 PO ×2 (15:57→16:03)
[2016-09-15] MEDS ORDERED: LISI-515 PO (16:01)
[2016-09-15] MEDS ORDERED: FENOFIBRATE 48 MG TAB PO SCH (19:00)
--- NOTE | 2016-09-16 10:13 | EKG ---
Date Performed: 09/15/2016 Time Performed: 16:21:22 PTAGE: 61 years EKG: Sinus rhythm PACED VENTRICULAR RHYTHM Abnormal ECG PREVIOUS TRACING : 09/15/2016 10.01 DOCTOR: Hola Dahl Interpretating Date/Time 09/16/2016 10:12:39
--- NOTE | 2016-09-16 11:13 | EKG ---
Date Performed: 09/15/2016 Time Performed: 10:01:10 PTAGE: 61 years EKG: paced ventricular rhythm Abnormal ECG PREVIOUS TRACING : 09/15/2016 06.55 DOCTOR: Hola Dahl Interpretating Date/Time 09/16/2016 11:11:26
[2016-11-19] MEDS ORDERED: ATOR20TA15 PO (10:27)
[2016-11-20] MEDS ORDERED: PLAV75TA29 PO (14:22)
== END 2016-09-15 17:04 | disposition home or self-care (01) ==
LOC: PHED 03:34 → PHEDA 06:06 → PH3A 11:58
PROVIDERS: ADMIT Family Medicine; ATTEND Family Medicine
DX: R07.89 Other chest pain (principal); R10.13 Epigastric pain; E11.42 Type 2 diabetes mellitus with diabetic polyneuropathy; R05 Cough; I16.0 Hypertensive urgency; R79.89 Other specified abnormal findings of blood chemistry; R59.1 Generalized enlarged lymph nodes; I11.0 Hypertensive heart disease with heart failure; I50.9 Heart failure, unspecified; E78.5 Hyperlipidemia, unspecified; K21.9 Gastro-esophageal reflux disease without esophagitis; E03.9 Hypothyroidism, unspecified; J44.9 Chronic obstructive pulmonary disease, unspecified; F41.9 Anxiety disorder, unspecified; F32.9 Major depressive disorder, single episode, unspecified; E78.00 Pure hypercholesterolemia, unspecified; Z87.442 Personal history of urinary calculi; M06.9 Rheumatoid arthritis, unspecified; F17.210 Nicotine dependence, cigarettes, uncomplicated; Z79.82 Long term (current) use of aspirin; Z88.1 Allergy status to other antibiotic agents; Z88.0 Allergy status to penicillin; Z82.49 Family history of ischemic heart disease and other diseases of the circulatory system
CPT/HCPCS: 71020; 74176; 78452; 80048; 80076; 81001; 82550; 83690; 84484; 85025; 85610; 85730; 93005; 93017; 96361; 96374; 96375; 99285; A9502; G0378; J2270; J2405; J2785; J7030

== ENCOUNTER 2016-09-24 10:00 | Emergency (ER) | payer OTHER ==
[~2016-09-24] VITALS: Ht 160 cm; Wt 89.0 kg
[~2016-09-24 10:00] MED LIST changes: -ATOR1TAB18 PO; -CANA100T PO; -CARV12.52 PO; +CARV6.25 PO; -CYCL1TAB29 PO; -DICL75TA PO; +FENO1TAB46 PO; +FURO1TAB62 PO; -HYDR25TA5 PO; +K-TA10TA PO; +LISI-515 PO; -LISI40TA PO; -SERT-129 PO
[2016-09-24 10:09] VITALS: BP 144/70; PULSE 79; RESP 18; TEMP 97.8; O2SAT 98
[2016-09-24 10:10] VITALS: BP_SYST 135; BP_SYST 144; BP_DIAS 65; BP_DIAS 70; PULSE 78; RESP 18; O2SAT 98
[2016-09-24 10:12] VITALS: RESP 18; O2SAT 98
[2016-09-24] MEDS ORDERED: SODIUM CHLORIDE 0.9% FLUSH 10 ML FLUSH IVF PRN (10:15)
[2016-09-24 10:45] LABS: AUTOMATED NEUTROPHIL # 5.2 TH/MM3 (1.8-7.7); BASOPHIL # 0.1 TH/MM3 (0-0.2); EOSINOPHIL # 0.3 TH/MM3 (0-0.4); EOSINOPHIL % 3.8 % (0.0-4.0); HEMATOCRIT 37.7 % (35.0-46.0); HEMO FLAGS DIFF FINAL; LYMPH % 25.2 % (9.0-44.0); MEAN CELL VOLUME 90.4 FL (80.0-100.0); MEAN CORPUSCULAR HEMOGLOBIN 30.3 PG (27.0-34.0); MEAN CORPUSCULAR HGB CONC 33.5 % (32.0-36.0); MONO % 4.2 % (0.0-8.0); NEUT % 65.8 % (16.0-70.0); PLATELET COUNT 206 TH/MM3 (150-450); RED BLOOD COUNT 4.17 MIL/MM3 (4.00-5.30); RED CELL DISTRIBUTION WIDTH 12.8 % (11.6-17.2); WHITE BLOOD COUNT 7.8 TH/MM3 (4.0-11.0)
--- NOTE | 2016-09-24 10:55 | RADRPT ---
EXAM DATE/TIME: 09/24/2016 10:31 [facility] COMPARISON: CHEST PA & LAT, September 15, 2016, 9:22. CHEST SINGLE AP, August 21, 2016, 14:10. INDICATIONS : Chest pain MEDICAL HISTORY : Hypertension. Chronic obstructive pulmonary disease. Rheumatoid arthritis. Asthma. Congestive Hea rt Failure. Smoker. SURGICAL HISTORY : None. ENCOUNTER: Initial ACUITY: 1 day PAIN SCORE: 3/10 LOCATION: Left chest under breast. FINDINGS: Portable AP view of the chest demonstrates a normal-sized cardiac silhouette. No effusion, consolidat ion, or pneumothorax is visualized. The bones and soft tissues demonstrate no acute abnormality. CONCLUSION: No acute cardiopulmonary abnormality is identified. Keo Means MD on September 24, 2016 at 10:53 Board Certified Radiologist. This report was verified electronically.
[2016-09-24 11:01] VITALS: BP 126/70; PULSE 73; RESP 18; O2SAT 98
--- NOTE | 2016-09-24 11:03 | PD ---
HPI Chief Complaint: Chest Pain Time Seen by Provider: 10:10 Travel History International Travel<30 days: No Contact w/Intl Traveler<30days: No Traveled to known affect area: No History of Present Illness HPI This is a 61-year-old female who presents to the emergency department for the third time in the last 30 days with chest discomfort. She says she woke up this morning at 7:00 and developed sternal chest pressure, constant, moderate severity, lasting for about an hour and then subsiding. She had some associated shortness of breath but no nausea or diaphoresis. She's had pain similar to this in the past. She was admitted at [facility] on September 15 and had a nuclear stress test which demonstrated dilated cardiomyopathy but no reversible lesion. She was discharged home and told to follow-up with a indirect sales representative. Because of insurance difficulties she's been unable to see anyone. She denies any increasing shortness of breath or leg swelling over the past several weeks. PFSH Past Medical History Hx Anticoagulant Therapy: Yes (ASA) Arthritis: Yes (RHEUMATOID AND OSTEO) Asthma: Yes Anxiety: Yes Depression: Yes Heart Rhythm Problems: No Cancer: No Cardiac Catheterization: No Cardiovascular Problems: Yes High Cholesterol: Yes Chemotherapy: Yes Congestive Heart Failure: Yes COPD: Yes Diabetes: Yes Diminished Hearing: No Endocrine: Yes GERD: Yes Genitourinary: Yes Hypertension: Yes Immune Disorder: No Implanted Vascular Access Dvce: No Kidney Stones: Yes Musculoskeletal: Yes (CHRONIC PAIN) Psychiatric: Yes Reproductive: No Respiratory: Yes (copd, chf) Immunizations Current: Yes Myocardial Infarction: No Seizures: Yes (after surgery ) Thyroid Disease: Yes (Hypo-) ?: Not Menopausal: Yes Dilation and Curettage (D&C): Yes Tubal Ligation: Yes Past Surgical History Abdominal Surgery: Yes (exploratory lap) Cholecystectomy: Yes Coronary Artery Bypass Graft: No Tonsillectomy: Yes (and adenoids) Other Surgery: Yes Social History Alcohol Use: No Tobacco Use: Yes (1/2ppd) Substance Use: No Allergies-Medications (Allergen,Severity, Reaction): Coded Allergies: Clindamycin (Verified Allergy, Severe, RASH, 09/24/16) Penicillin (Verified Allergy, Severe, "FACE SWELLS UP", 09/24/16) Reported Meds & Prescriptions Reported Meds & Active Scripts Active Metformin (Metformin HCl) 1,000 Mg Tab 1,000 Mg PO BIDPC With meals Fenofibrate 40 Mg Tab 40 Mg PO DAILY Lisinopril 20 Mg Tab 20 Mg PO DAILY K-Tab (Potassium Chloride) 10 Meq Tab 10 Meq PO DAILY Lasix (Furosemide) 20 Mg Tab 20 Mg PO DAILY Coreg (Carvedilol) 6.25 Mg Tab 6.25 Mg PO BID Hold if HR <60 or SBP <110 Zantac (Ranitidine HCl) 150 Mg Tab 150 Mg PO DAILY Aspirin 81 Mg Tabdr 81 Mg PO DAILY 30 Days Reported Xanax (Alprazolam) 1 Mg Tab 1 Mg PO TID PRN Levothyroxine (Levothyroxine Sodium) 175 Mcg Tab 175 Mcg PO DAILY Glipizide 5 Mg Tab 5 Mg PO BIDAC Take 30 minutes before a meal Review of Systems Except as stated in HPI: all other systems reviewed are Neg Physical Exam Narrative GENERAL:Well appearing, no acute distress SKIN: Focused skin assessment warm and dry. HEAD: Atraumatic. Normocephalic. EYES: Pupils equal and round. No injection or drainage. ENT: Moist mucous membranes NECK: Trachea midline. CARDIOVASCULAR: Regular rate and rhythm. No murmur appreciated. 1+ bilateral lower extremity edema. RESPIRATORY: Clear to auscultation. Breath sounds equal bilaterally. GASTROINTESTINAL: Abdomen soft, non-tender, nondistended. MUSCULOSKELETAL: No obvious deformities. NEUROLOGICAL: Awake and alert. No obvious cranial nerve deficits. Moving all extremities. PSYCHIATRIC: Appropriate mood and affect; insight and judgment normal. Data Data Last Documented VS Vital Signs Date Time Temp Pulse Resp B/P Pulse Ox O2 Delivery O2 Flow Rate FiO2 09/24/16 11:01 73 18 126/70 98 Room Air 09/24/16 10:09 97.8 Orders Electrocardiogram (09/24/16 10:10) Complete Blood Count With Diff (09/24/16 10:10) Comprehensive Metabolic Panel (09/24/16 10:10) Troponin I (09/24/16 10:10) Chest, Single Ap (09/24/16 10:10) Ecg Monitoring (09/24/16 10:10) Bilateral Bp Monitoring (09/24/16 10:10) Iv Access Insert/Monitor (09/24/16 10:10) Oximetry (09/24/16 10:10) Oxygen Administration (09/24/16 10:10) Sodium Chloride 0.9% Flush (Ns Flush) (09/24/16 10:15) B-Type Natriuretic Peptide (09/24/16 10:13) Labs Laboratory Tests Test 09/24/16 10:15 White Blood Count 7.8 TH/MM3 Red Blood Count 4.17 MIL/MM3 Hemoglobin 12.6 GM/DL Hematocrit 37.7 % Mean Corpuscular Volume 90.4 FL Mean Corpuscular Hemoglobin 30.3 PG Mean Corpuscular Hemoglobin 33.5 % Concent Red Cell Distribution Width 12.8 % Platelet Count 206 TH/MM3 Mean Platelet Volume 9.9 FL Neutrophils (%) (Auto) 65.8 % Lymphocytes (%) (Auto) 25.2 % Monocytes (%) (Auto) 4.2 % Eosinophils (%) (Auto) 3.8 % Basophils (%) (Auto) 1.0 % Neutrophils # (Auto) 5.2 TH/MM3 Lymphocytes # (Auto) 2.0 TH/MM3 Monocytes # (Auto) 0.3 TH/MM3 Eosinophils # (Auto) 0.3 TH/MM3 Basophils # (Auto) 0.1 TH/MM3 CBC Comment DIFF FINAL Differential Comment Sodium Level 139 MEQ/L Potassium Level 4.1 MEQ/L Chloride Level 106 MEQ/L Carbon Dioxide Level 23.6 MEQ/L Anion Gap 9 MEQ/L Blood Urea Nitrogen 27 MG/DL Creatinine 1.03 MG/DL Estimat Glomerular Filtration 54 ML/MIN Rate Random Glucose 211 MG/DL Calcium Level 9.2 MG/DL Total Bilirubin 0.3 MG/DL Aspartate Amino Transf 11 U/L (AST/SGOT) Alanine Aminotransferase 17 U/L (ALT/SGPT) Alkaline Phosphatase 100 U/L Troponin I LESS THAN 0.02 NG/ML B-Type Natriuretic Peptide 101 PG/ML Total Protein 6.4 GM/DL Albumin 3.5 GM/DL [facility] Medical Decision Making Medical Screen Exam Complete: Yes Emergency Medical Condition: Yes Interpretation(s) EKG: Left bundle branch block consistent with prior No leukocytosis mild GFR reduction BNP is 101 Troponin is 0.02 Chest x-ray: No acute process Differential Diagnosis Acute coronary syndrome, congestive heart failure, depression, anxiety Narrative Course This is a 61-year-old female who presents to the emergency department with chest discomfort that started this morning. She was just seen in the hospital earlier this month and had a nuclear stress test which demonstrated no reversible ischemia. She did have a reduced ejection fraction of 35% consistent with cardiomyopathy. Here she was placed on a monitor and an IV was established. Labs are obtained which were all reassuring including a normal troponin and an indeterminate BNP. Chest x-ray demonstrated no pulmonary congestion. When I went back to reevaluate the patient she became very tearful and started to tell me that she's been very depressed lately. She did see her primary care physician earlier this week who started her on an antidepressant and is working to get her into a indirect sales representative. I don't think the patient's chest pain is related to ischemia. I reemphasized the importance of her follow- up with outpatient cardiology, and I recommended that she see outpatient psychiatry regarding her depression. At this time she denies any suicidal ideation and I think she is safe for outpatient evaluation. Diagnosis Primary Impression: Depression Qualified Code: F32.9 - Depression, unspecified depression type Additional Impression: Cardiomyopathy Qualified Code: I42.9 - Cardiomyopathy, unspecified type Patient Instructions: General Instructions Additional Instructions: If you develop severe chest pain, shortness of breath, sweating, lightheadedness , dizziness or difficulty breathing return to the emergency department immediately. Followup with your primary care physician in 2-3 days if your symptoms are not resolved. If you are having thoughts of hurting herself or others return to the emergency department immediately. Med/Other Pt SpecificInfo: No Change to Meds Disposition: 01 DISCHARGE HOME Condition: Stable Christin Daniel MD Sep 24, 2016 11:03
[2016-09-24 11:06] LABS: ALT (GPT) 17 U/L (10-53); ANION GAP 9 MEQ/L (5-15); AST (GOT) 11 U/L (15-37); BICARBONATE 23.6 MEQ/L (21.0-32.0); BLOOD UREA NITROGEN 27 MG/DL (7-18); CHLORIDE 106 MEQ/L (98-107); GLOMERULAR FILTRATION RATE 54 ML/MIN (>89); POTASSIUM 4.1 MEQ/L (3.5-5.1); SODIUM (NA) 139 MEQ/L (136-145)
[2016-09-24 11:10] LABS: ALKALINE PHOSPHATASE 100 U/L (45-117); TOTAL BILIRUBIN ADULT 0.3 MG/DL (0.2-1.0)
[2016-09-24 12:33] VITALS: BP 130/76; TEMP 97.8
--- NOTE | 2016-09-24 14:50 | EKG ---
Date Performed: 09/24/2016 Time Performed: 10:22:34 PTAGE: 61 years EKG: Sinus rhythm LEFT AXIS DEVIATION LEFT BUNDLE BRANCH BLOCK ABNORMAL ECG PREVIOUS TRACING : 09/15/2016 16.21 No significant change from previous tracing noted. DOCTOR: Jose Elias Viera Interpretating Date/Time 09/24/2016 14:50:11
[2016-11-19] MEDS ORDERED: ATOR20TA15 PO (10:27)
[2016-11-20] MEDS ORDERED: PLAV75TA29 PO (14:22)
== END 2016-09-24 12:32 | disposition home or self-care (01) ==
LOC: NEPC 10:00
DX: F32.9 Major depressive disorder, single episode, unspecified (principal); R94.31 Abnormal electrocardiogram [ECG] [EKG]; R06.02 Shortness of breath; J45.909 Unspecified asthma, uncomplicated; E78.00 Pure hypercholesterolemia, unspecified; I50.9 Heart failure, unspecified; J44.9 Chronic obstructive pulmonary disease, unspecified; E11.9 Type 2 diabetes mellitus without complications; K21.9 Gastro-esophageal reflux disease without esophagitis; I10 Essential (primary) hypertension
CPT/HCPCS: 71010; 80053; 83880; 84484; 85025; 93005

== ENCOUNTER 2016-11-19 09:43 | Day surgery (SDC) | payer OTHER ==
[~2016-11-19] VITALS: Ht 162.6 cm; Wt 85.5 kg
[2016-11-19] VITALS (11 sets, daily range): BP systolic 124–158; BP diastolic 59–84; PULSE 56–76; RESP 16–18; TEMP 98.1–98.5; O2SAT 95–97
[2016-11-19] MEDS: NS 1000P @30 MLS/HR (KVO) IV SCH (10:00)
[2016-11-19 10:21] LABS: AUTOMATED NEUTROPHIL # 7.2 TH/MM3 (1.8-7.7); BASOPHIL % 0.5 % (0.0-2.0); EOSINOPHIL # 0.4 TH/MM3 (0-0.4); EOSINOPHIL % 3.5 % (0.0-4.0); HEMO FLAGS DIFF FINAL; LYMPH % 18.9 % (9.0-44.0); LYMPHOCYTE # 1.9 TH/MM3 (1.0-4.8); MEAN CELL VOLUME 89.4 FL (80.0-100.0); MEAN CORPUSCULAR HGB CONC 33.5 % (32.0-36.0); NEUT % 72.1 % (16.0-70.0); PLATELET COUNT 192 TH/MM3 (150-450); RED BLOOD COUNT 4.58 MIL/MM3 (4.00-5.30); RED CELL DISTRIBUTION WIDTH 12.6 % (11.6-17.2)
[2016-11-19] MEDS ORDERED: CARV6.252 PO (10:27)
[2016-11-19] MEDS ORDERED: ASPI325T PO (10:27)
[2016-11-19] MEDS ORDERED: LISI-515 PO (10:27)
[2016-11-19] MEDS ORDERED: POTA10CA PO (10:27)
[2016-11-19] MEDS ORDERED: VITA200C3 PO (10:27)
[2016-11-19] MEDS ORDERED: ALPR0.25 PO (10:27)
[2016-11-19] MEDS ORDERED: FURO20TA PO (10:27)
[2016-11-19] MEDS ORDERED: ATOR20TA15 PO ×2 (10:27)
[2016-11-19] MEDS ORDERED: METF1000 PO (10:27)
[2016-11-19 10:31] LABS: APTT (PATIENT) 25.7 SEC (24.3-30.1); PROTHROMBIN TIME - PATIENT 10.6 SEC (9.8-11.6)
[2016-11-19 10:33] LABS: BICARBONATE 25.9 MEQ/L (21.0-32.0); POTASSIUM 4.2 MEQ/L (3.5-5.1)
[2016-11-19] MEDS ORDERED: HEPARIN-NS/PF INJ 500 ML ONE (11:52)
[2016-11-19] MEDS ORDERED: MIDAZOLAM HCL 2 MG/2 ML VIAL ONE (11:57)
[2016-11-19] MEDS ORDERED: BIVALIRUDIN 250 MG VIAL ONE (12:23)
[2016-11-19] MEDS ORDERED: CLOPIDOGREL 300 MG TAB ONE (12:47)
--- NOTE | 2016-11-19 12:57 | CATHPROC ---
Official Limited Virtual HIS Report Study Information Study Number Admission Scheduled Start Study Start [id number] Nov 19 2016 9:43AM 11/19/2016 Nov 19 2016 11:53AM Study Type [place] Service Left Heart Cath Cardiac Catheterization Admit Source Facility Department Other [facility] - Dictating Transcribing Machine Servicer Physician and Clinical Staff Initial Jordan Moran Silica Mixer Operatorsarah Dawn RN, Anastacio Meier cathlab, cathlab Recorder Susan Brower,RT(R) Scrub Kris Dumont,RT(R) Procedures Performed Procedure Location (Site) Vessel Name Coronary Angiograms LCA Left Coronary Coronary Angiograms RCA Right Coronary Drug Eluting Inflatio LAD Prox Left Coronary Drug Eluting Inflatio RCA Prox Right Coronary PTCA ADD ON'S Wire insertion Fem Art (right) Femoral Art Equipment Time Health Informatics Advisor Description Size Mfg Part Number Used/Scraped [id number] 12:23 [employer] WIRE, ASAHI PROWATER 180CM 180CM Used *[id number] 12:24 [employer] WIRE, ASAHI PROWATER 180CM 180CM Used *[id number] TRANSDUCER, TRUWAVE [id number] 12:15 HUTCHINS ULLOA * Used W/STOCKCOCK *[id number] MPIS-502-10.0- INTRODUCER SET, 12:16 [employer]. FR 5 SC-NT-U-SST Used MICROPUNCTURE, STIFFENED *[id number] MPIS-502-10.0- INTRODUCER SET, 12:16 [employer]. FR 5 SC-NT-U-SST Used MICROPUNCTURE, STIFFENED *[id number] *[id number] *[id number] *[id number] *[id number] 12:39 DAIG/ST. MARCO A MEDICAL ANGIOSEAL, FR6 VIP FR 6 Used *[id number] 12:15 MEDLINE INDUSTRIES PACK, CCL CUSTOM * Used *[id number] 12:15 MEDLINE PACER PEN, SKIN DUAL W/ RULER * Used *[id number] STENT, 2.25 14 RESOLUTE [id number] 12:30 MEDTRONIC 2.25 14 Used INTEGRITY RX *[id number] STENT, 3.0 18 RESOLUTE [id number] 12:37 MEDTRONIC 3.0 18 Used INTEGRITY RX *[id number] 12:27 CSS99 MEDICAL 30 JEREMY INDEFLATOR Used *[id number] 12:15 CSS99 MEDICAL SHEATH, FR6.5 PRELUDE 11CM FR 6.5 038ACT Used *7073801 [id number] 12:15 CSS99 MEDICAL WIRE, 3MMJ .035 180CM 180CM Used *[id number] 12:15 NAMIC MANIFOLD, 4 PORT * Used *[id number] 12:27 NYCOMED OMNIPAQUE, 300 MG, 50ML 50ML [id number] Used 12:18 [employer]COMED OMNIPAQUE, 350 MG, 100ML 100ML [id number] Used 12:15 [employer]COMED OMNIPAQUE, 350 MG, 150ML 150ML [id number] Used [id number] 12:15 [employer]ABEL MEDICAL BLANKET,WARM AIR CCL * Used *[id number] Equipment Model, Serial, Lot Number and Expiration Data Description Model Number Serial Number Lot Number Expiration Date ANGIOSEAL, FR6 VIP [id number] 08-11-2017 INTRODUCER SET, [id number] 09-18-2019 MICROPUNCTURE, STIFFENED STENT, 2.25 14 RESOLUTE [id number] 04-09-2018 INTEGRITY RX STENT, 3.0 18 RESOLUTE [id number] 07-27-2018 INTEGRITY RX History: Current Medications Medication Dosage/Unit Route Frequency Last Date/Time Taken Glucophage Glypizide ASA Beta Eric Statins (any) Synthroid CARVEDILOL LISINOPRIL K-Dur History: Allergies Allergy Reaction Clindamycin RASH Penicillin "FACE SWELLS UP" History: Risk Factors Family History of Hypertension Dyslipidemia Previous OR Previous Heart Failure Premature CAD Yes Yes Yes Yes Yes Prior Valve Prior PCI Prior CABG Surgery No No No Cerebrovascular Peripheral Artery Chronic Lung On Dialysis Diabetes Diabetes Therapy Disease Disease Disease No No No Yes Yes Oral History: Stress Tests Stress or Imaging Studies Performed Yes Standard Exercise Stress Test No Stress Echo No Stress Test SPECT Stress Test SPECT Result Stress Test SPECT Ischemia Risk/Extent Yes Positive Intermediate Stress Test CMR No Cardiac CTA Coronary Calcium Score No No Labs Hgb (g/dl) Hct (%) RBC (MIL/MM3) WBC (l/cumm) Platelets (thousands) 12.00-18.00 37.00-55.00 4.80-6.20 4.80-10.80 140.00-450.00 13.7 41 4.5 10 192 Glucose (mg/dl) BUN (mg/dl) Creatinine (mg/dl) BUN:Creatinine (1:x) 60.00-110.00 8.00-20.00 0.10-9.00 10.00-20.00 210 18 0.8 22.5 Na (meq/l) K (meq/l) Cl (meq/l) CO2 (mmol/L) Ca (mg/dl) 138.00-146.00 3.80-5.10 101.00-111.00 23.00-30.00 9.00-10.50 138 4.2 105 25.9 9 PT (sec) PTT (sec) INR (PTT:PT) 9.40-11.40 25.10-32.70 0.50-2.00 10.6 25.7 1 CPK-MB (ng/ML) 0.00-7.00 Not Drawn Medication Medication Total Dose (Bolus/Oral) Medication Total Dosage/Unit 1% XYLOCAINE 20 mL ANGIOMAX BOLUS 12.9 mL FENTANYL 100 mcg PLAVIX 600 mg VERSED 2 mg Medications (Bolus/Oral) Medication Time Given Dosage/Unit Administered By Reason FENTANYL 11/19/2016 12:13:51 PM 50 mcg Anastacio Dawn RN 50 mcg FENTANYL given in lab by Anastacio Dawn RN via Peripheral IV. VERSED 11/19/2016 12:14:57 PM 1 mg Anastacio Dawn RN 1 mg VERSED given in lab by Anastacio Dawn RN via Peripheral IV. VERSED 11/19/2016 12:15:06 PM 1 mg Anastacio Dawn RN 1 mg VERSED given in lab by Anastacio Dawn RN in Left Antecubital via Peripheral IV. 1% XYLOCAINE 11/19/2016 12:15:28 PM 20 mL Jordan Augustin 20 mL 1% XYLOCAINE given in lab by Jordan Augustin in Right Groin via Subcutaneous. FENTANYL 11/19/2016 12:16:16 PM 50 mcg Anastacio Dawn RN 50 mcg FENTANYL given in lab by Anastacio Dawn RN via Peripheral IV. ANGIOMAX BOLUS 11/19/2016 12:25:26 PM 12.9 mL Anastacio Dawn RN 12.9 mL ANGIOMAX BOLUS given in lab by Anastacio Dawn RN via Peripheral IV. PLAVIX 11/19/2016 12:44:53 PM 600 mg Anastacio Dawn RN 600 mg PLAVIX given in lab by Anastacio Dawn RN via Oral. Medication (Drip) Medication Time Given Dosage/Unit Concentration/Unit Diluent (ml) Solution ANGIOMAX DRIP 11/19/2016 12:25:54 PM 1.75 mg/kg/hr 250 mg 50 NaCl .9 1.75 mg/kg/hr ANGIOMAX DRIP given in lab by Anastacio Dawn RN via Peripheral IV. Pump/Drip Flow = 30.1 ml/hr using NaCl .9 with a concentration of 250 mg in 50 ml. IV Solutions 11/19/2016 11:54:16 AM 0 mL (IV) 500 NaCl .9 Patient arrived on IV Solutions in Left Antecubital via Peripheral IV. Pump/Drip Flow = 20 ml/hr usin g NaCl .9. Initial Case Assessment Cardiovascular HR Rhythm Chest Pain 73 reg 0 Edema Present Skin color Skin None Normal Warm Circulatory - Right Pulses Dorsalis Pedis Femoral 1 3 Scale (0,1,2,3,4,d) Circulatory - Left Pulses Dorsalis Pedis Femoral 2 3 Scale (0,1,2,3,4,d) Circulatory - Lower Extremities Color Lower Right Color Lower Left Normal Normal Neurological State Oriented to time-place- Alert Moves all extremities person Respiration - General Respiration Rate SpO2 (%) (B/min) 15 97 Final Case Assessment Cardiovascular HR Rhythm NIBP Chest Pain 67 REG 145/75 0 Edema Present Skin color Skin None Normal Warm Circulatory - Right Pulses Dorsalis Pedis Femoral 2 3 Scale (0,1,2,3,4,d) Circulatory - Left Pulses Dorsalis Pedis Femoral 1 3 Scale (0,1,2,3,4,d) Circulatory - Lower Extremities Color Lower Right Color Lower Left Normal Normal Neurological State Oriented to time-place- Alert Moves all extremities person Respiration - General Respiration Rate SpO2 (%) O2 (lpm) (B/min) 8 98 2 Chronological Log Time Study Chronological Log 11:46:40 Patient arrived via Bed. 11:53:52 Patient Name, D.O.B, / Armband Verified By R.N. 11:53:53 Consent signed by the physician and the patient and verified by the Dictating Transcribing Machine Servicer staff. 11:53:54 Verbal Stimulation=2 Physical Stimulation=2 Airway=2 Respiration=2 TOTAL=8. (0=absent, 1=li mited, 2=present) 11:53:54 Pre-op and post- op instructions given; patient acknowledges understanding of instructions. 11:53:56 Patient has been NPO for More than 6Hrs. 11:53:56 Skin Breakdown-NONE 11:53:59 Patient Warmer Placed on the Table. 11:54:01 A # 20 IV was noted in the Antecubital (left). Grade = 0 11:54:16 Patient arrived on IV Solutions in Left Antecubital via Peripheral IV. Pump/Drip Flow = 20 ml/hr using NaCl .9. 11:54:48 History and physical on the chart or being dictated. Assessment: Initial Case, HR=73 BPM, Rhythm=reg, Chest Pain=0, Edema=None, Color=Normal, Skin = Warm Right Pulses: Shane Ped=1, Femoral=3 Left Pulses: Shane Ped=2, Femoral=3 11:54:49 Lower Right Extremities: Color=Normal Lower Left Extremities: Color=Normal Neurological: State=Alert, Ox3, HOFF Respiration: Resp=15 B/min, SpO2=97 % Vitals capture started with the following parameters, Patient=Adult, Interval=15 min, Initial P nmdvmor=780 mmHg, 11:54:58 Deflation Rate=5 mmHg 11:55:41 HR=69 bpm, OOAQ=374/83 mmhg, SpO2=96.0 %, Resp=14 B/min, Pain=0, Latoya=10, Busby=2 11:58:09 Reference ECG taken 12:00:42 HR=71 bpm, YEHC=777/82 mmhg, SpO2=99.0 %, Resp=28 B/min, Pain=0, Latoya=10, Busby=2 12:00:51 Bilateral groins prepped with 2% chlorhexidine, and with a 3 min. waiting time. 12:00:55 MD paged 12:05:41 HR=55 bpm, RBKY=266/81 mmhg, SpO2=99.0 %, Resp=14 B/min, Pain=0, Latoya=10, Busby=2 12:07:36 Pressure channel 1 zeroed. 12:10:40 HR=55 bpm, TQXO=157/72 mmhg, SpO2=98.0 %, Resp=15 B/min, Pain=0, Latoya=10, Busby=2 12:12:25 MD arrived. 12:13:51 50 mcg FENTANYL given in lab by Anastacio Dawn RN via Peripheral IV. Time Out. Correct patient, correct procedure,correct physician, ,power injector not loaded with contrast with surgical 12:14:50 team present. Time Out Concurred by MD, individual staff and ELECTRONIC PREPRESS TECHNICIAN in procedure 12:14:57 1 mg VERSED given in lab by Anastacio Dawn RN via Peripheral IV. 12:15:00 Case Start 12:15:06 1 mg VERSED given in lab by Anastacio Dawn RN in Left Antecubital via Peripheral IV. 12:15:20 Verbal Stimulation=2 Physical Stimulation=2 Airway=2 Respiration=2 TOTAL=8. (0=absent, 1=li mited, 2=present) 12:15:28 20 mL 1% XYLOCAINE given in lab by Jordan Augustin in Right Groin via Subcutaneous. 12:15:37 HR=56 bpm, UQIV=756/67 mmhg, SpO2=97.0 %, Resp=16 B/min, Pain=0, Latoya=10, Busby=2 12:16:16 50 mcg FENTANYL given in lab by Anastacio Dawn RN via Peripheral IV. 12:17:15 Access site was Right Femoral Artery WITH MP KIT 12:17:26 A wire was inserted via Fem Art (right). 12:17:29 A SHEATH, FR6.5 PRELUDE 11CM FR 6.5 was advanced into the Fem Art (right) using the Percuta neous technique. A JL 4.0 INFINITI CATHETER FR 6 was advanced over a wire. OMNIPAQUE, 350 MG, 150ML 150ML was us ed for 12:17:53 injections. Recorded Pressure: Ao, HR=59, Condition=Condition 1 12:18:57 (Aorta) Ao 131/55/81 12:19:13 The LCA was injected and visualized at various angles. OMNIPAQUE, 350 MG, 150ML 150ML used . 12:20:38 HR=63 bpm, FUCV=207/62 mmhg, SpO2=95.0 %, Resp=14 B/min, Pain=0, Latoya=10, Busby=2 12:20:43 An injection in the Fem Art (right) was made through the SHEATH, FR6.5 PRELUDE 11CM FR 6.5. 12:21:03 Catheter was removed A JR 4.0 INFINITI CATHETER FR 6 was advanced over a wire. OMNIPAQUE, 350 MG, 150ML 150ML was us ed for 12:21:12 injections. Recorded Pressure: LV, HR=68, Condition=Condition 1 12:21:48 (Left Ventricle) LV 153/6/11 Recorded Pressure: LV, Ao, HR=84, Condition=Condition 1 12:22:12 (Left Ventricle) LV 104/7/9, (Aorta) Ao 144/58/92 12:22:25 The RCA was injected and visualized at various angles. OMNIPAQUE, 350 MG, 100ML 100ML used . 12:22:40 Catheter was removed A XB 3.5 GUIDE CATHETER FR 7 was advanced over a wire. OMNIPAQUE, 350 MG, 100ML 100ML was used for 12:23:52 injections. 12:25:26 12.9 mL ANGIOMAX BOLUS given in lab by Anastacio Dawn RN via Peripheral IV. 12:25:39 HR=67 bpm, WKWE=447/61 mmhg, SpO2=96.0 %, Resp=10 B/min, Pain=0, Latoya=10, Busby=2 1.75 mg/kg/hr ANGIOMAX DRIP given in lab by Anastacio Dawn RN via Peripheral IV. Pump/Drip Flow = 30.1 ml/hr using 12:25:54 NaCl .9 with a concentration of 250 mg in 50 ml. 12::23 A WIRE, ASAHI PROWATER 180CM 180CM was inserted via Fem Art (right). 12:26:34 OMNIPAQUE, 300 MG, 50ML 50ML and 30 JEREMY INDEFLATOR added. 12:29:23 Interventional wire has crossed the lesion 12:30:39 HR=68 bpm, ADEP=171/75 mmhg, SpO2=97.0 %, Resp=11 B/min, Pain=0, Latoya=10, Busby=2 A STENT, 2.25 14 RESOLUTE INTEGRITY RX 2.25 14 was advanced through a XB 3.5 GUIDE CATHETER FR 7 over a ::59 WIRE, ASAHI PROWATER 180CM 180CM. A STENT, 2.25 14 RESOLUTE INTEGRITY RX 2.25 14 was deployed using a 30 JEREMY INDEFLATOR at 12 jeremy ospheres 12:31:13 for 15 seconds in the LAD Prox. 12::51 Delivery device removed :: The LCA was injected and visualized at various angles. OMNIPAQUE, 350 MG, 100ML 100ML used . 12:32:11 Catheter was removed A JR 4.0 GUIDE CATHETER FR 6 was advanced over a wire. OMNIPAQUE, 350 MG, 150ML 150ML was used for 12:33:06 injections. 12:35:20 A WIRE, ASAHI PROWATER 180CM 180CM was inserted via Fem Art (right). 12:35:38 HR=71 bpm, XPYS=717/75 mmhg, SpO2=98.0 %, Resp=12 B/min, Pain=0, Latoya=10, Busby=2 12:35:43 Interventional wire has crossed the lesion A STENT, 3.0 18 RESOLUTE INTEGRITY RX 3.0 18 was advanced through a JR 4.0 GUIDE CATHETER FR 6 over a WIRE, 12:35:52 ASAHI PROWATER 180CM 180CM. A STENT, 3.0 18 RESOLUTE INTEGRITY RX 3.0 18 was deployed using a 30 JEREMY INDEFLATOR at 12 atmos pheres for 12:37:25 15 seconds in the RCA Prox. 12:38:38 Delivery device removed 12:38:44 The RCA was injected and visualized at various angles. OMNIPAQUE, 350 MG, 150ML 150ML used . 12:39:01 Catheter was removed Assessment: Final Case, HR=67 BPM, Rhythm=REG, GYEU=478/75 mmhg, Chest Pain=0, Edema=None, Cook Sta r=Normal, Skin = Warm Right Pulses: Shane Ped=2, Femoral=3 Left Pulses: Shane Ped=1, Femoral=3 12:39:15 Lower Right Extremities: Color=Normal Lower Left Extremities: Color=Normal Neurological: State=Alert, Ox3, HOFF Respiration: Resp=8 B/min, SpO2=98 %, O2=2 lpm 12:39:46 Catheter(s) removed without difficulty 12:39:50 ANGIOSEAL, FR6 VIP FR 6 placement in the Fem Art (right) 12:40:41 HR=67 bpm, PGIP=420/76 mmhg, SpO2=98.0 %, Resp=16 B/min, Pain=0, Latoya=10, Busby=2 12:42:33 Case End 12:42:44 Sterile dressing applied to site 12:42:45 No case complications noted. 12:42:46 Cine recording checked. 12:42:48 Bedside Report will be given. 12:42:49 Implantable Device card placed in patient's chart. 12:44:53 600 mg PLAVIX given in lab by Anastacio Dawn RN via Oral. 12:46:25 HR=61 bpm, JMIA=083/78 mmhg, SpO2=99.0 %, Resp=10 B/min, Pain=0, Latoya=10, Busby=2 12:50:43 HR=64 bpm, XONG=506/84 mmhg, SpO2=98.0 %, Resp=9 B/min, Pain=0, Latoya=10, Busby=2 End Study - Contrast Media Used In Study Contrast Total Opened (mL) Total Used (mL) Total Wasted (mL) Omnipaque 100 100 0 End Study - Maximum Contrast Load Max Contrast Load (mL) 537.5 End Study - Radiation Exposure Fluoro Time (minutes) 7.0 End Study - Sheaths Sheaths Pulled By Sheath Hold Time (min) Jordan Augustin 2 End Study - Patient Disposition Complications Transferred To Interventional Outcome No Outpatient Bed successful
[2016-11-19] MEDS ORDERED: SODIUM CHLORIDE 0.9% FLUSH 10 ML FLUSH IV FLUSH PRN (13:00)
[2016-11-19] MEDS ORDERED: MISC INFORMATION XX ONE (13:00)
[2016-11-19] MEDS ORDERED: IOHEXOL 350 MG/ML 100 ML BTL (for Cath Lab) OTHER ONE (13:18)
[2016-11-19] MEDS ORDERED: FUROSEMIDE 20 MG TAB PO ONE (14:00)
[2016-11-19] MEDS: glipiZIDE 5 MG TAB PO SCH (16:54)
[2016-11-19] MEDS ORDERED: ACETAMINOPHEN/HYDROcodone 325 MG/5 MG TAB PO ONE ×2 (17:00→18:15)
[2016-11-19] MEDS: CARVEDILOL 6.25 MG TAB PO SCH (20:30)
[2016-11-19] MEDS ORDERED: ATORVASTATIN 20 MG TAB PO SCH (21:00)
[2016-11-20] VITALS (15 sets, daily range): BP systolic 137–159; BP diastolic 62–80; PULSE 53–67; RESP 16–18; TEMP 98.3–98.4; O2SAT 96–98
[2016-11-20] MEDS: ACETAMINOPHEN 325 MG TAB PO PRN ×2 (00:22→09:06)
--- NOTE | 2016-11-20 05:40 | MA ---
cc: IVIS ACOSTA M.D. DATE OF 1955 DATE OF PROCEDURE 11/19/2016 NAME OF PROCEDURE Left heart catheterization, coronary angiography, left ventriculography, percutaneous angioplasty, drug-eluting stent to the anterior descending artery, percutaneous angioplasty with drug-eluting stent to the right coronary artery. PREOPERATIVE DIAGNOSES Angina. Abnormal nuclear stress test. SURGEON Ivis Acosta MD ANESTHESIA Fentanyl and Versed ESTIMATED BLOOD LOSS None. COMPLICATIONS None. CONTRAST 100 cc EQUIPMENT Resolute Medtronic KARLO stents 2.25 x 14 for the LAD, 3.0 x 18-mm for the right coronary artery. PROCEDURAL STATEMENTS The patient was brought to cardiac catheterization laboratory. The right groin was prepped and draped in the usual sterile fashion. The skin was anesthetized with 1% Xylocaine. A 6-Macedonian sheath was placed in the right femoral artery. Over an 0.035 guidewire preformed coronary arteriographic catheters were advanced to the aortic root, selectively engaged in the left main, right main coronary artery. Selective bilateral coronary angiography was carried out. The right coronary catheter was used to do left ventriculography and with the right coronary catheter manipulated across the aortic valve, positioned in the left ventricular cavity. There was identified 75% stenosis of the proximal anterior descending artery, 75% stenosis of the proximal right coronary artery. INTERVENTION Intravenous AngioMax was administered through an XB3.5 guider. A Prowater wire was passed down the anterior descending artery and parked distally. The vessel was then directly stented with a 2.25-mm x 14-mm long Resolute Medtronic drug-eluting stent dilated to 12 atmospheres pressure for 30 seconds. Repeat coronary angiography reveals an excellent cosmetic result, 0% residual stenosis DWAYNE flow pre and post is 3. Attention was then directed to the right coronary artery. The XB catheter was exchanged for a right coronary guider. The Prowater wire was positioned down the right coronary artery and parked distally. The vessel was then directly stented with a 3.0-mm x 18-mm long Medtronic Resolute drug-eluting stent, dilated to 12 atmospheres pressure for 30 seconds. Repeat coronary angiography reveals an excellent cosmetic result. 0% residual stenosis, DWAYNE-3 flow pre and post. The groin was sealed with an AngioSeal and the patient returned to her room in stable condition. FINDINGS I. HEMODYNAMICS Aortic pressure 140/60. Left ventricular pressure 140 over an end-diastolic of 9. No gradient found on pullback across the left ventricular outflow tract or the aortic valve. II. LEFT VENTRICULOGRAPHY The left ventricle is well-opacified during ventriculography. Ejection fraction estimated low-normal at 45-50% with mild anterior wall hypokinesis. No mitral regurgitation is seen. III. CORONARY ARTERIES The left main coronary artery is angiographically smooth, noncalcified appearance. It is free of obstruction. It divides into a larger circumflex which is nondominant and a small anterior descending artery. The anterior descending artery has a 75% stenosis described above which is stented. The diagonal branch artery is free of obstruction. The circumflex branch artery is free of obstruction proximally and distally. Obtuse marginal branches were free of obstruction. The right coronary artery is as above which is directly stented proximally and the posterior descending and posterior left ventricular branches are free of obstruction. CONCLUSION 1. Two vessel coronary artery disease successfully angioplastied and stented. 2. Low-normal LV function with mild anterior wall hypokinesis. MD CHET Lui/NERIS /12:49 PM /5:06 AM
[2016-11-20] MEDS: glipiZIDE 5 MG TAB PO SCH (05:47)
[2016-11-20] MEDS ORDERED: LEVOTHYROXINE SODIUM 75 MCG TAB PO SCH (06:00)
[2016-11-20] MEDS ORDERED: LEVOTHYROXINE SODIUM 100 MCG TAB PO SCH (06:00)
[2016-11-20] MEDS: CARVEDILOL 6.25 MG TAB PO SCH (08:49)
[2016-11-20] MEDS ORDERED: FUROSEMIDE 20 MG TAB PO SCH (09:00)
[2016-11-20] MEDS ORDERED: ASPIRIN 325 MG TAB PO SCH (09:00)
[2016-11-20] MEDS ORDERED: LISINOPRIL 20 MG TAB PO SCH (09:00)
[2016-11-20] MEDS ORDERED: POTASSIUM CHLORIDE 10 MEQ CAP PO SCH (09:00)
[2016-11-20] MEDS: NS 1000P @30 MLS/HR (KVO) IV SCH (10:00)
[2016-11-20] MEDS ORDERED: ASPI-110 PO (14:21)
[2016-11-20] MEDS ORDERED: PLAV75TA29 PO ×2 (14:22)
--- NOTE | 2016-11-20 14:24 | PD.CARD.PN ---
Subjective Subjective Remarks No angina or CHF symptoms, anxious Objective Medications Current Medications Medications (Trade) Dose Ordered Sig/Liset Route Start Time Stop Time Status Last Admin (NS 1000 ml Inj) 1,000 ml @ 30 mls/hr Q24H IV 11/19/16 10:00 (NS Flush) 2 ml UNSCH PRN IV FLUSH 11/19/16 13:00 (Glucotrol) 5 mg BIDAC PO 11/19/16 16:00 11/20/16 05:47 (Synthroid) 100 mcg DAILY@06 PO 11/20/16 06:00 11/20/16 05:47 (Synthroid) 75 mcg DAILY@06 PO 11/20/16 06:00 11/20/16 05:47 (Coreg) 6.25 mg BID PO 11/19/16 21:00 11/20/16 08:49 (Prinivil) 20 mg DAILY PO 11/20/16 09:00 11/20/16 08:50 (KCl) 10 meq DAILY PO 11/20/16 09:00 11/20/16 08:49 (Lasix) 20 mg DAILY PO 11/20/16 09:00 11/20/16 08:50 (Aspirin) 325 mg DAILY PO 11/20/16 09:00 11/20/16 08:49 (Lipitor) 20 mg HS PO 11/19/16 21:00 11/19/16 20:30 (Tylenol) 650 mg Q6H PRN PO 11/19/16 23:45 11/20/16 09:06 Vital Signs / I&O Vital Signs Date Time Temp Pulse Resp B/P Pulse Ox O2 Delivery O2 Flow Rate FiO2 11/20/16 10:14 18 11/20/16 09:00 64 11/20/16 08:00 98.4 63 18 159/80 98 11/20/16 08:00 62 11/20/16 07:00 59 11/20/16 06:00 59 11/20/16 05:00 67 11/20/16 04:00 58 11/20/16 03:00 98.3 63 16 156/79 98 11/20/16 03:00 63 11/20/16 02:00 55 11/20/16 01:00 53 11/20/16 00:00 60 11/19/16 23:00 98.5 62 16 158/71 97 11/19/16 23:00 62 11/19/16 22:00 59 11/19/16 21:00 58 11/19/16 20:00 58 11/19/16 19:00 98.5 57 16 143/65 95 11/19/16 19:00 57 11/19/16 18:00 68 11/19/16 17:00 56 11/19/16 16:00 58 11/19/16 15:00 98.2 63 16 124/59 95 11/19/16 15:00 62 I/O 11/19/16 11/19/16 11/19/16 11/20/16 11/20/16 11/20/16 07:00 15:00 23:00 07:00 15:00 23:00 Intake Total 480 ml 480 ml Output Total 1200 ml Balance 480 ml -720 ml Intake Oral 480 ml 480 ml Output Urine Total 1200 ml Stool Total 0 ml Physical Exam GENERAL: In NAD SKIN: Warm and dry. HEAD: Normocephalic. EYES: No scleral icterus. No injection or drainage. NECK: Supple, trachea midline. No JVD or lymphadenopathy. CARDIOVASCULAR: Regular rate and rhythm without murmurs, gallops, or rubs. RESPIRATORY: Breath sounds equal bilaterally. No accessory muscle use. GASTROINTESTINAL: Abdomen soft, non-tender, nondistended. MUSCULOSKELETAL: No cyanosis, or edema. R groin stable Laboratory Laboratory Tests Test 11/19/16 10:05 White Blood Count 10.0 TH/MM3 Red Blood Count 4.58 MIL/MM3 Hemoglobin 13.7 GM/DL Hematocrit 41.0 % Mean Corpuscular Volume 89.4 FL Mean Corpuscular Hemoglobin 30.0 PG Mean Corpuscular Hemoglobin 33.5 % Concent Red Cell Distribution Width 12.6 % Platelet Count 192 TH/MM3 Mean Platelet Volume 9.6 FL Neutrophils (%) (Auto) 72.1 % Lymphocytes (%) (Auto) 18.9 % Monocytes (%) (Auto) 5.0 % Eosinophils (%) (Auto) 3.5 % Basophils (%) (Auto) 0.5 % Neutrophils # (Auto) 7.2 TH/MM3 Lymphocytes # (Auto) 1.9 TH/MM3 Monocytes # (Auto) 0.5 TH/MM3 Eosinophils # (Auto) 0.4 TH/MM3 Basophils # (Auto) 0.0 TH/MM3 CBC Comment DIFF FINAL Differential Comment Prothrombin Time 10.6 SEC Prothromb Time International 1.0 RATIO Ratio Activated Partial 25.7 SEC Thromboplast Time Sodium Level 138 MEQ/L Potassium Level 4.2 MEQ/L Chloride Level 105 MEQ/L Carbon Dioxide Level 25.9 MEQ/L Anion Gap 7 MEQ/L Blood Urea Nitrogen 18 MG/DL Creatinine 0.82 MG/DL Estimat Glomerular Filtration 70 ML/MIN Rate Random Glucose 210 MG/DL Calcium Level 9.0 MG/DL Assessment and Plan Problem List: (1) Coronary artery disease (2) Dyslipidemia (3) Type II diabetes mellitus Assessment and Plan Stable post coronary stenting. Continue Plavix (script given), baby ASA, statin , beta weston, YUDELKA-I. DC home. F/u w Dr. Augustin as outpatient. Devi Masterson MD Nov 20, 2016 14:24
--- NOTE | 2016-11-20 18:02 | EKG ---
Date Performed: 11/19/2016 Time Performed: 10:21:32 PTAGE: 61 years EKG: Sinus rhythm Left axis deviation Left bundle branch block Abnormal ECG PREVIOUS TRACING : 09/24/2016 10.22 Compared to prior tracing no significant change DOCTOR: Devi Masterson Interpretating Date/Time 11/20/2016 18:00:52
[2016-11-21] MEDS ORDERED: metFORMIN HCL 500 MG TAB PO SCH (09:00)
== END 2016-11-20 15:02 | disposition home or self-care (01) ==
LOC: HDIC 09:43 → HCAT 09:43 → HCIS 13:54 → HCAT 11-20 15:02
PROVIDERS: ATTEND Internal Medicine Cardiovascular Disease
DX: I25.119 Atherosclerotic heart disease of native coronary artery with unspecified angina pectoris (principal); I50.22 Chronic systolic (congestive) heart failure; I44.7 Left bundle-branch block, unspecified; E11.9 Type 2 diabetes mellitus without complications; J44.9 Chronic obstructive pulmonary disease, unspecified; I10 Essential (primary) hypertension; Z01.818 Encounter for other preprocedural examination; Z01.810 Encounter for preprocedural cardiovascular examination
CPT/HCPCS: 80048; 85025; 85610; 85730; 92928; 92929; 93005; 93458; C1760; C1769; C1874; C1887; C1893; G0269; J0583; J1644; J2250; J3010; Q9967

== ENCOUNTER 2016-11-22 20:32 | Inpatient (IN) | payer OTHER ==
[~2016-11-22] VITALS: Ht 162.6 cm; Wt 88.3 kg
[2016-11-22 19:00] VITALS: PULSE 76
[~2016-11-22 20:32] MED LIST changes: +ALPR0.25 PO; +ASPI-110 PO; +ASPI325T PO; +ATOR20TA15 PO; +CARV6.252 PO; +FURO20TA PO; +PLAV75TA29 PO; +POTA10CA PO; +VITA200C3 PO
[2016-11-22 20:34] VITALS: BP 206/103; PULSE 78; RESP 16; TEMP 98.3; O2SAT 97
--- NOTE | 2016-11-22 21:42 | PD ---
HPI Chief Complaint: Cardiac Complaint Time Seen by Provider: 21:40 Travel History International Travel<30 days: No Contact w/Intl Traveler<30days: No Traveled to known affect area: No History of Present Illness HPI 61 YO F with PMH of CAD, S/P cardiac stent placement 11/[address] Augustin, CHF, COPD, DM, HTN, GERD presents to the ED for evaluation of right leg bruising and pain. She also complains of palpitations accompanied by diaphoresis and shortness of breath at approximately 6:30 PM. Onset at rest. Episode lasted approximately 20 minutes and resolved spontaneously. She denies fever, chills, chest pain, cough, abdominal pain, nausea, vomiting, dysuria. Endorses chronic back pain. PFSH Past Medical History Hx Anticoagulant Therapy: Yes (ASA) Arthritis: Yes (RHEUMATOID AND OSTEO) Asthma: Yes Anxiety: Yes Depression: Yes Heart Rhythm Problems: No Cancer: No Cardiac Catheterization: Yes (stent x2) Cardiovascular Problems: Yes High Cholesterol: Yes Chemotherapy: Yes Congestive Heart Failure: Yes COPD: Yes Diabetes: Yes Patient Takes Glucophage: Yes Diminished Hearing: No Endocrine: Yes Gastrointestinal Disorders: Yes GERD: Yes Genitourinary: Yes Hiatal Hernia: Yes Hypertension: Yes Immune Disorder: No Implanted Vascular Access Dvce: No Kidney Stones: Yes Musculoskeletal: Yes (CHRONIC PAIN) Psychiatric: Yes Reproductive: No Respiratory: Yes (copd, chf) Immunizations Current: Yes Myocardial Infarction: No Seizures: Yes (after surgery ) Thyroid Disease: Yes (Hypo-) Menopausal: Yes Dilation and Curettage (D&C): Yes Tubal Ligation: Yes Past Surgical History Abdominal Surgery: Yes (exploratory lap) Cholecystectomy: Yes Coronary Artery Bypass Graft: No Tonsillectomy: Yes (and adenoids) Other Surgery: Yes Social History Alcohol Use: No Tobacco Use: Yes (1/2ppd) Substance Use: No Allergies-Medications (Allergen,Severity, Reaction): Coded Allergies: Clindamycin (Verified Allergy, Severe, RASH, 11/22/16) Penicillin (Verified Allergy, Severe, "FACE SWELLS UP", 11/22/16) Reported Meds & Prescriptions Reported Meds & Active Scripts Active Reported Plavix (Clopidogrel Bisulfate) 75 Mg Tab 75 Mg PO DAILY Aspirin 81 (Aspirin) 81 Mg Tabdr 81 Mg PO DAILY Potassium Chloride ER (Potassium Chloride) 10 Meq Cap 10 Meq PO DAILY Lisinopril 20 Mg Tab 20 Mg PO DAILY Carvedilol 6.25 Mg Tab 6.25 Mg PO BID Metformin (Metformin HCl) 1,000 Mg Tab 1,000 Mg PO BIDPC With meals Furosemide 20 Mg Tab 20 Mg PO DAILY Atorvastatin (Atorvastatin Calcium) 20 Mg Tab 20 Mg PO HS Alprazolam 0.25 Mg Tab 0.25 Mg PO Q6H PRN Vitamin E 200 Unit Cap 400 Units PO DAILY Levothyroxine (Levothyroxine Sodium) 175 Mcg Tab 175 Mcg PO DAILY Glipizide 5 Mg Tab 5 Mg PO BIDAC Take 30 minutes before a meal Review of Systems Except as stated in HPI: all other systems reviewed are Neg Physical Exam Narrative GENERAL: Well-nourished, well-developed thin white female in NAD. SKIN: Focused skin assessment warm/dry. Ecchymosis of the right anterior thigh, mild TTP. Right groin incision site without signs of infection. HEAD: Normocephalic. EYES: No scleral icterus. No injection or drainage. NECK: Supple, trachea midline. No JVD or lymphadenopathy. CARDIOVASCULAR: Regular rate and rhythm without murmurs, gallops, or rubs. RESPIRATORY: Breath sounds clear and equal bilaterally. No accessory muscle use. GASTROINTESTINAL: Abdomen soft, non-tender, nondistended. MUSCULOSKELETAL: No cyanosis, or edema. BACK: Nontender without obvious deformity. No CVA tenderness. Data Data Last Documented VS Vital Signs Date Time Temp Pulse Resp B/P Pulse Ox O2 Delivery O2 Flow Rate FiO2 11/22/16 21:46 188/98 11/22/16 21:45 98 Room Air 11/22/16 20:34 98.3 78 16 Orders Electrocardiogram (11/22/16 21:37) Ckmb (Isoenzyme) Profile (11/22/16 21:37) Complete Blood Count With Diff (11/22/16 21:37) Comprehensive Metabolic Panel (11/22/16 21:37) Magnesium (Mg) (11/22/16 21:37) Prothrombin Time / Inr (Pt) (11/22/16 21:37) Act Partial Throm Time (Ptt) (11/22/16 21:37) Troponin I (11/22/16 21:37) Chest, Single Ap (11/22/16 21:37) Ecg Monitoring (11/22/16 21:37) Bilateral Bp Monitoring (11/22/16 21:37) Iv Access Insert/Monitor (11/22/16 21:37) Oximetry (11/22/16 21:37) Sodium Chloride 0.9% Flush (Ns Flush) (11/22/16 21:45) Morphine Inj (Morphine Inj) (11/22/16 22:45) Aspirin Chew (Aspirin Chew) (11/22/16 22:45) Nitroglycerin 2% Oint (Nitroglycerin 2% (11/22/16 22:45) Nitroglycerin 0.4 Mg Q5m X3 (11/22/16 22:45) Labs Laboratory Tests Test 11/22/16 21:50 White Blood Count 8.8 TH/MM3 Red Blood Count 4.29 MIL/MM3 Hemoglobin 12.7 GM/DL Hematocrit 38.4 % Mean Corpuscular Volume 89.7 FL Mean Corpuscular Hemoglobin 29.6 PG Mean Corpuscular Hemoglobin 33.0 % Concent Red Cell Distribution Width 12.7 % Platelet Count 173 TH/MM3 Mean Platelet Volume 10.3 FL Neutrophils (%) (Auto) 57.5 % Lymphocytes (%) (Auto) 30.3 % Monocytes (%) (Auto) 5.5 % Eosinophils (%) (Auto) 5.8 % Basophils (%) (Auto) 0.9 % Neutrophils # (Auto) 5.1 TH/MM3 Lymphocytes # (Auto) 2.7 TH/MM3 Monocytes # (Auto) 0.5 TH/MM3 Eosinophils # (Auto) 0.5 TH/MM3 Basophils # (Auto) 0.1 TH/MM3 CBC Comment DIFF FINAL Differential Comment MDM Medical Decision Making Medical Screen Exam Complete: Yes Emergency Medical Condition: Yes Differential Diagnosis chest pain versus arrhythmia versus ACS versus anxiety versus pneumonia versus other Narrative Course 61 YO F with PMH of CAD, S/P cardiac stent placement 11/[address] Augustin, ON PLAVIX, CHF, COPD, DM, HTN, GERD presents to the ED for evaluation of right leg bruising and pain. She also complains of palpitations accompanied by diaphoresis and shortness of breath at approximately 6:30 PM. Onset at rest. Episode lasted approximately 20 minutes and resolved spontaneously. She denies fever, chills, chest pain, cough, abdominal pain, nausea, vomiting, dysuria. Endorses chronic back pain. BP 206/103 in triage, 188/98 in the exam room. Physical exam reveals a nontoxic-appearing white female in no acute distress. Chest clear to auscultation bilaterally. There are no appreciable M/R/G. There is a small incision site in the right groin without signs of infection. There is a ecchymosis of the right anterior thigh. Nontender, nonpulsatile. EKG, CBC, CMP, coags, chest x-ray, cardiac enzymes ordered and pending. She was administered aspirin, sublingual nitroglycerin and nitroglycerin paste. Patient complained of chronic back pain and was administered 2 mg morphine IV. Disposition per Dr. Allan. Chandrika Dick Nov 22, 2016 21:42
[2016-11-22 21:45] VITALS: O2SAT 98
[2016-11-22] MEDS ORDERED: SODIUM CHLORIDE 0.9% FLUSH 10 ML FLUSH IVF PRN (21:45)
[2016-11-22 21:46] VITALS: BP 188/98
--- NOTE | 2016-11-22 22:28 | RADRPT ---
EXAM DATE/TIME: 11/22/2016 22:10 [facility] COMPARISON: CHEST SINGLE AP, September 24, 2016, 10:31. INDICATIONS : Chest pain. MEDICAL HISTORY : None. SURGICAL HISTORY : None. ENCOUNTER: Initial ACUITY: 1 day PAIN SCORE: 7/10 LOCATION: Bilateral chest FINDINGS: Frontal view demonstrates a lesser degree of inspiration than on prior exam. When taking into accoun t the degree of inspiration, the lungs are symmetrically aerated and clear. The heart is normal size . Both hemidiaphragms are well delineated. CONCLUSION: No infiltrate seen. Submaximal inspiration. Jamaal Zamora MD on November 22, 2016 at 22:25 Board Certified Radiologist. This report was verified electronically.
[2016-11-22 22:38] LABS: AUTOMATED NEUTROPHIL # 5.1 TH/MM3 (1.8-7.7); BASOPHIL # 0.1 TH/MM3 (0-0.2); BASOPHIL % 0.9 % (0.0-2.0); EOSINOPHIL # 0.5 TH/MM3 (0-0.4); EOSINOPHIL % 5.8 % (0.0-4.0); HEMATOCRIT 38.4 % (35.0-46.0); HEMO FLAGS DIFF FINAL; LYMPH % 30.3 % (9.0-44.0); LYMPHOCYTE # 2.7 TH/MM3 (1.0-4.8); MEAN CELL VOLUME 89.7 FL (80.0-100.0); MEAN CORPUSCULAR HEMOGLOBIN 29.6 PG (27.0-34.0); MONO % 5.5 % (0.0-8.0); NEUT % 57.5 % (16.0-70.0); PLATELET COUNT 173 TH/MM3 (150-450); RED BLOOD COUNT 4.29 MIL/MM3 (4.00-5.30); RED CELL DISTRIBUTION WIDTH 12.7 % (11.6-17.2); WHITE BLOOD COUNT 8.8 TH/MM3 (4.0-11.0)
[2016-11-22] MEDS ORDERED: MORPHINE SULFATE 4 MG/ML INJ IV PUSH ONE (22:45)
[2016-11-22] MEDS ORDERED: ASPIRIN 81 MG CHEW TAB PO ONE (22:45)
[2016-11-22] MEDS ORDERED: NITROGLYCERIN 2% OINT 1 GM PACKET TOP ONE (22:45)
[2016-11-22] MEDS: NITROGLYCERIN 0.4 MG SL 25 TABS/BTL SL SCH ×3 (22:50→22:59)
[2016-11-22 22:51] LABS: APTT (PATIENT) 25.3 SEC (24.3-30.1); INTERNATIONAL NORMALIZED RATIO 0.9 RATIO; PROTHROMBIN TIME - PATIENT 9.7 SEC (9.8-11.6)
[2016-11-22 22:58] LABS: ANION GAP 11 MEQ/L (5-15); AST (GOT) 9 U/L (15-37); BICARBONATE 25.5 MEQ/L (21.0-32.0); BLOOD UREA NITROGEN 23 MG/DL (7-18); CHLORIDE 102 MEQ/L (98-107); GLOMERULAR FILTRATION RATE 87 ML/MIN (>89); MAGNESIUM 1.8 MG/DL (1.5-2.5); POTASSIUM 3.8 MEQ/L (3.5-5.1); SODIUM (NA) 138 MEQ/L (136-145)
[2016-11-22 22:59] LABS: ALT (GPT) 18 U/L (10-53)
[2016-11-22 23:00] VITALS: BP 177/84; PULSE 70; PULSE 77; RESP 20; O2SAT 98
[2016-11-22 23:03] LABS: ALKALINE PHOSPHATASE 114 U/L (45-117); TOTAL BILIRUBIN ADULT 0.4 MG/DL (0.2-1.0)
--- NOTE | 2016-11-22 23:04 | PD ---
Data Data Last Documented VS Vital Signs Date Time Temp Pulse Resp B/P Pulse Ox O2 Delivery O2 Flow Rate FiO2 11/22/16 23:13 16 11/22/16 23:00 77 177/84 98 Room Air 11/22/16 20:34 98.3 Orders Electrocardiogram (11/22/16 21:37) Ckmb (Isoenzyme) Profile (11/22/16 21:37) Complete Blood Count With Diff (11/22/16 21:37) Comprehensive Metabolic Panel (11/22/16 21:37) Magnesium (Mg) (11/22/16 21:37) Prothrombin Time / Inr (Pt) (11/22/16 21:37) Act Partial Throm Time (Ptt) (11/22/16 21:37) Troponin I (11/22/16 21:37) Chest, Single Ap (11/22/16 21:37) Ecg Monitoring (11/22/16 21:37) Bilateral Bp Monitoring (11/22/16 21:37) Iv Access Insert/Monitor (11/22/16 21:37) Oximetry (11/22/16 21:37) Sodium Chloride 0.9% Flush (Ns Flush) (11/22/16 21:45) Morphine Inj (Morphine Inj) (11/22/16 22:45) Aspirin Chew (Aspirin Chew) (11/22/16 22:45) Nitroglycerin 2% Oint (Nitroglycerin 2% (11/22/16 22:45) Nitroglycerin Sl (Nitrostat Sl) (11/22/16 22:45) Alprazolam (Xanax) (11/22/16 23:45) Aspirin Ec (Ecotrin Ec) (11/23/16 09:00) Atorvastatin (Lipitor) (11/23/16 21:00) Carvedilol (Coreg) (11/23/16 09:00) Clopidogrel (Plavix) (11/23/16 09:00) Lisinopril (Prinivil) (11/23/16 09:00) Potassium Chloride (Kcl) (11/23/16 09:00) Levothyroxine (Synthroid) (11/23/16 06:00) Admit Order (Ed Use Only) (11/22/16 23:40) Heparin Infusion JORDAN.Q1H (11/22/16 23:40) Heparin Inj (Heparin Inj) (11/22/16 23:45) Heparin-D5w Inj (Heparin-D5w Inj) (11/22/16 23:45) Act Partial Throm Time (Ptt) (11/22/16 23:40) Prothrombin Time / Inr (Pt) (11/22/16 23:40) Cbc No Diff, Includes Plts (11/25/16 06:00) Act Partial Throm Time (Ptt) (11/23/16 06:40) Occult Blood (Hemoccult) Stool (11/22/16 23:40) Morphine Inj (Morphine Inj) (11/22/16 23:45) Labs Laboratory Tests Test 11/22/16 21:50 White Blood Count 8.8 TH/MM3 Red Blood Count 4.29 MIL/MM3 Hemoglobin 12.7 GM/DL Hematocrit 38.4 % Mean Corpuscular Volume 89.7 FL Mean Corpuscular Hemoglobin 29.6 PG Mean Corpuscular Hemoglobin 33.0 % Concent Red Cell Distribution Width 12.7 % Platelet Count 173 TH/MM3 Mean Platelet Volume 10.3 FL Neutrophils (%) (Auto) 57.5 % Lymphocytes (%) (Auto) 30.3 % Monocytes (%) (Auto) 5.5 % Eosinophils (%) (Auto) 5.8 % Basophils (%) (Auto) 0.9 % Neutrophils # (Auto) 5.1 TH/MM3 Lymphocytes # (Auto) 2.7 TH/MM3 Monocytes # (Auto) 0.5 TH/MM3 Eosinophils # (Auto) 0.5 TH/MM3 Basophils # (Auto) 0.1 TH/MM3 CBC Comment DIFF FINAL Differential Comment Prothrombin Time 9.7 SEC Prothromb Time International 0.9 RATIO Ratio Activated Partial 25.3 SEC Thromboplast Time Sodium Level 138 MEQ/L Potassium Level 3.8 MEQ/L Chloride Level 102 MEQ/L Carbon Dioxide Level 25.5 MEQ/L Anion Gap 11 MEQ/L Blood Urea Nitrogen 23 MG/DL Creatinine 0.68 MG/DL Estimat Glomerular Filtration 87 ML/MIN Rate Random Glucose 147 MG/DL Calcium Level 9.7 MG/DL Magnesium Level 1.8 MG/DL Total Bilirubin 0.4 MG/DL Aspartate Amino Transf 9 U/L (AST/SGOT) Alanine Aminotransferase 18 U/L (ALT/SGPT) Alkaline Phosphatase 114 U/L Total Creatine Kinase 69 U/L Troponin I 0.37 NG/ML Total Protein 6.9 GM/DL Albumin 3.6 GM/DL B-Type Natriuretic Peptide 181 PG/ML [facility] Medical Record Reviewed: Yes Supervised Visit with KERRIE: No Interpretation(s) Last Impressions Chest X-Ray 11/22/162136 Signed Impressions: Service Date/Time: Tuesday, November 22, 2016 22:10 - CONCLUSION: No infiltrate seen. Submaximal inspiration. Jamaal Zamora MD Narrative Course During the course of the patients emergency department visit, the patients history, examination, and differential diagnosis were reviewed with the patient. The patient had IV access obtained and blood work sent for analysis. The patient was placed on a cardiac cath lab radiology technologist with oximetry and blood pressure monitoring. An EKG was done on arrival. The patient's EKG shows a left bundle branch block with left axis deviation which the patient has had previously. No acute ST segment changes. The patient was initially evaluated by Chandrika, the physician child welfare assistant. Please see her complete history and physical. The patient 's case was checked out to me at the conclusion of her shift for disposition. The patient is a 61-year-old female who presents to [facility] emergency Department with a history of coronary artery disease status post 2 stents being placed 2 days ago. The patient reports prior to arrival having chest pain, palpitations, and diaphoresis. The patient was initially provided aspirin 324 mg by mouth, nitroglycerin sublingual every 5 minutes 3 when necessary chest pain, nitroglycerin 1 inch the chest wall, morphine 2 mg IV for pain. The patient is now chest pain-free. The patients laboratory studies were reviewed and remarkable for white count of 8.8, hemoglobin 12.7, platelets 173 with 5.8 eosinophils, CMP is remarkable for BUN of 23, glucose 147, 9 AST, PT 9.7, PTT 25.3. CPK 69, troponin I is elevated at 0.37. BNP is 181. PT 9.7, PTT 25.3. Radiology studies were reviewed and remarkable for a chest x-ray that shows submaximal inspiration, no infiltrate identified. I spoke to the covering sound truck operator, Dr. Masterson, for this patient's sound truck operator, Dr. Augustin. He did agree with the plan to start the patient on heparin per [facility] protocol. He agreed with the plan for consultation with Dr. Augustin for the morning. The patients results were discussed with the patient, including the plan of care. I explained that further testing and/ or monitoring is indicated based on the patients history, examination, and/ or laboratory findings. Therefore, I recommended admission for additional evaluation. The patient expressed understanding and was agreeable with this plan. The patient was admitted to the hospital in stable condition and sent to a bed under the care of the [facility] Hospital[facility] service. Physician Communication Physician Communication The patient's case was discussed with Dr. Anton who did agree to admit the patient for further evaluation and treatment at this time. The patient's case was discussed with Dr. Masterson, as dictated above in the ED course. Diagnosis Primary Impression: Chest pain, rule out acute myocardial infarction Additional Impressions: History of coronary artery disease Elevated troponin Admitting Information Admitting Physician Requests: Omiara Coker MD Nov 22, 2016 23:04
[2016-11-22 23:16] LABS: CREATINE KINASE 69 U/L (26-192)
[2016-11-22] MEDS ORDERED: BISACODYL 10 MG SUPP RECTAL PRN (23:45)
[2016-11-22] MEDS ORDERED: SODIUM CHLORIDE 0.9% FLUSH 10 ML FLUSH IV FLUSH PRN (23:45)
[2016-11-22] MEDS ORDERED: TEMAZEPAM 15 MG CAP PO PRN (23:45)
[2016-11-22] MEDS ORDERED: MORPHINE SULFATE 4 MG/ML INJ IV PUSH PRN (23:45)
[2016-11-22] MEDS ORDERED: ACETAMINOPHEN 325 MG TAB PO PRN (23:45)
[2016-11-22] MEDS ORDERED: SENNOSIDES 8.6 MG TAB PO PRN (23:45)
[2016-11-22] MEDS ORDERED: LACTULOSE SYRUP 20 GM/30 ML CUP PO PRN (23:45)
[2016-11-22] MEDS ORDERED: ONDANSETRON HCL 4 MG/2 ML VIAL IVP PRN (23:45)
[2016-11-22] MEDS ORDERED: HEPARIN SODIUM - IV 10,000 UNITS/10 ML VIAL IV ONE (23:45)
[2016-11-22] MEDS ORDERED: ALPRAZolam 0.25 MG TAB PO PRN (23:45)
[2016-11-22] MEDS ORDERED: MAGNESIUM HYDROXIDE SUSP 30 ML CUP PO PRN (23:45)
--- NOTE | 2016-11-22 23:53 | HHI.HP ---
[facility] Service [facility] Primary Care Physician Brittni Hinton MD Admission Diagnosis CP R/0 [place], elevated troponin, recent stent placement Diagnoses: Chief Complaint: chest pain Travel History International Travel<30 Days: No Contact w/Intl Traveler <30 Da: No Traveled to Known Affected Are: No History of Present Illness 61-year-old female with history of CAD with recent 2 stents placed, systolic CHF EF 37% , hypertension, hyperlipidemia, diabetes, GERD, hypothyroidism, COPD, anxiety and depression, and tobacco use presents with complaint of chest pain. Review of Systems Except as stated in HPI: all other systems reviewed are Neg Past Family Social History Past Medical History Hyperlipidemia Hypertension CHF DM COPD GERD Kidney stones Seizures after cholecystectomy and knee surgery Rheumatoid and osteoarthritis Anxiety Depression Hypothyroidism Past Surgical History Exploratory laparoscopy Cholecystectomy Tonsillectomy and adenoidectomy Arthroscopy left knee Right carpal tunnel surgery Tubal ligation D&C Reported Medications Reported Meds & Active Scripts Active Reported Plavix (Clopidogrel Bisulfate) 75 Mg Tab 75 Mg PO DAILY Aspirin 81 (Aspirin) 81 Mg Tabdr 81 Mg PO DAILY Potassium Chloride ER (Potassium Chloride) 10 Meq Cap 10 Meq PO DAILY Lisinopril 20 Mg Tab 20 Mg PO DAILY Carvedilol 6.25 Mg Tab 6.25 Mg PO BID Metformin (Metformin HCl) 1,000 Mg Tab 1,000 Mg PO BIDPC With meals Furosemide 20 Mg Tab 20 Mg PO DAILY Atorvastatin (Atorvastatin Calcium) 20 Mg Tab 20 Mg PO HS Alprazolam 0.25 Mg Tab 0.25 Mg PO Q6H PRN Vitamin E 200 Unit Cap 400 Units PO DAILY Levothyroxine (Levothyroxine Sodium) 175 Mcg Tab 175 Mcg PO DAILY Glipizide 5 Mg Tab 5 Mg PO BIDAC Take 30 minutes before a meal Allergies: Coded Allergies: Clindamycin (Verified Allergy, Severe, RASH, 11/22/16) Penicillin (Verified Allergy, Severe, "FACE SWELLS UP", 11/22/16) Family History Brother: [place] and quadruple bypass at age 42; awaiting heart transplant Mother: Hyperlipidemia, DM Father: Rheumatic fever as a child, stroke Social History Patient smokes half pack per day of cigarettes. Started smoking at age 15. States she quit for 10 years in her 40's. History of alcoholism. Patient states she had not had any alcohol 9 years until she had a drink last month. History of smoking marijuana once in awhile, but denies current use. Denies any history of other illicit drug use or IVDA. Physical Exam Vital Signs Vital Signs Date Time Temp Pulse Resp B/P Pulse Ox O2 Delivery O2 Flow Rate FiO2 11/22/16 23:13 16 11/22/16 23:13 16 11/22/16 23:00 77 20 177/84 98 Room Air 11/22/16 21:46 188/98 11/22/16 21:45 98 Room Air 11/22/16 20:34 98.3 78 16 206/103 97 Room Air Physical Exam GENERAL: This is a well-nourished, well-developed patient, in no apparent distress. SKIN: No rashes, ecchymoses or lesions. Cool and dry. HEAD: Atraumatic. Normocephalic. No temporal or scalp tenderness. EYES: Pupils equal round and reactive. Extraocular motions intact. No scleral icterus. No injection or drainage. ENT: Nose without bleeding, purulent drainage or septal hematoma. Throat without erythema, tonsillar hypertrophy or exudate. Uvula midline. Airway patent. NECK: Trachea midline. No JVD or lymphadenopathy. Supple, nontender, no meningeal signs. CARDIOVASCULAR: Regular rate and rhythm without murmurs, gallops, or rubs. RESPIRATORY: Clear to auscultation. Breath sounds equal bilaterally. No wheezes , rales, or rhonchi. GASTROINTESTINAL: Abdomen soft, non-tender, nondistended. No hepato-splenomegaly , or palpable masses. No guarding. MUSCULOSKELETAL: Extremities without clubbing, cyanosis, or edema. No joint tenderness, effusion, or edema noted. No calf tenderness. Negative Homans sign bilaterally. NEUROLOGICAL: Awake and alert. Cranial nerves II through XII intact. Motor and sensory grossly within normal limits. Five out of 5 muscle strength in all muscle groups. Normal speech. Laboratory Laboratory Tests Test 11/22/16 21:50 White Blood Count 8.8 Red Blood Count 4.29 Hemoglobin 12.7 Hematocrit 38.4 Mean Corpuscular Volume 89.7 Mean Corpuscular Hemoglobin 29.6 Mean Corpuscular Hemoglobin 33.0 Concent Red Cell Distribution Width 12.7 Platelet Count 173 Mean Platelet Volume 10.3 Neutrophils (%) (Auto) 57.5 Lymphocytes (%) (Auto) 30.3 Monocytes (%) (Auto) 5.5 Eosinophils (%) (Auto) 5.8 Basophils (%) (Auto) 0.9 Neutrophils # (Auto) 5.1 Lymphocytes # (Auto) 2.7 Monocytes # (Auto) 0.5 Eosinophils # (Auto) 0.5 Basophils # (Auto) 0.1 CBC Comment DIFF FINAL Differential Comment Prothrombin Time 9.7 Prothromb Time International 0.9 Ratio Activated Partial 25.3 Thromboplast Time Sodium Level 138 Potassium Level 3.8 Chloride Level 102 Carbon Dioxide Level 25.5 Anion Gap 11 Blood Urea Nitrogen 23 Creatinine 0.68 Estimat Glomerular Filtration 87 Rate Random Glucose 147 Calcium Level 9.7 Magnesium Level 1.8 Total Bilirubin 0.4 Aspartate Amino Transf 9 (AST/SGOT) Alanine Aminotransferase 18 (ALT/SGPT) Alkaline Phosphatase 114 Total Creatine Kinase 69 Troponin I 0.37 Total Protein 6.9 Albumin 3.6 Result Diagram: 11/22/16214911/22/162149 Assessment and Plan Assessment and Plan The patient is a 61-year-old female who presents to [facility] emergency Department with a history of coronary artery disease status post 2 stents being placed 2 days ago. The patient reports prior to arrival having chest pain, palpitations, and diaphoresis. Chest pain CAD with recent 2 stents EKG shows a left bundle branch block with left axis deviation which the patient has had previously. No acute ST segment changes. Received aspirin 324 mg by mouth, nitroglycerin sublingual every 5 minutes 3 when necessary chest pain, nitroglycerin 1 inch the chest wall, morphine 2 mg IV for pain. Trop elevated at 0.37. Trend trops . Trend EKG Started on heparin drip Cont ASA and plavix Consult cardiology, her cardiology is Dr Augustin, per patient Dr Brooks is covering for him Continue home meds carvedilol, lisinopril, statin Chest x-ray reviewed submaximal inspiration, no infiltrate identified. GERD. Resume home meds. Hypertension: restart home meds Diabetes mellitus: Hold home meds. Accu checks. ISS. Monitor BS and adjust as need. HLD and hypothyroidism: Continue home meds Tobacco use: Counselled on risks of continued smoking and different methods of cessation. Dental issues/lymphadenopathy: Chronic issue. Follow up as OP with PCP. No acute dental infection at this time. DVT prevention: SCDs/teds, on heparin drip Discussed Condition With patient, nurse, ED physician Physician Certification 2 Midnight Certification Type: Admission for Inpatient Services Order for Inpatient Services The services are ordered in accordance with Medicare regulations or non- Medicare payer requirements, as applicable. In the case of services not specified as inpatient-only, they are appropriately provided as inpatient services in accordance with the 2-midnight benchmark. Estimated LOS (days): 3 days is the estimated time the patient will need to remain in the hospital, assuming treatment plan goals are met and no additional complications. Post-Hospital Plan: Home Bertha Anton MD Nov 22, 2016 23:53
[2016-11-23] VITALS (18 sets, daily range): BP systolic 110–168; BP diastolic 47–88; PULSE 52–97; RESP 16–20; TEMP 97.4–98.9; O2SAT 94–98
[2016-11-23] MEDS: HEPARIN-D5W INJ 250 ML IV SCH ×2 (00:05→22:20)
[2016-11-23] MEDS ORDERED: ENALAPRILAT 1.25 MG/ML VIAL IV PUSH PRN (01:30)
[2016-11-23] MEDS ORDERED: TEMAZEPAM 15 MG CAP PO ONE (02:00)
[2016-11-23] MEDS ORDERED: TEMAZEPAM 15 MG CAP PO PRN (02:00)
[2016-11-23 04:06] LABS: AUTOMATED NEUTROPHIL # 3.8 TH/MM3 (1.8-7.7); BASOPHIL # 0.1 TH/MM3 (0-0.2); BASOPHIL % 0.8 % (0.0-2.0); EOSINOPHIL # 0.5 TH/MM3 (0-0.4); EOSINOPHIL % 6.3 % (0.0-4.0); HEMATOCRIT 34.1 % (35.0-46.0); HEMO FLAGS DIFF FINAL; LYMPH % 40.2 % (9.0-44.0); LYMPHOCYTE # 3.2 TH/MM3 (1.0-4.8); MEAN CELL VOLUME 89.6 FL (80.0-100.0); MEAN CORPUSCULAR HEMOGLOBIN 30.8 PG (27.0-34.0); MEAN CORPUSCULAR HGB CONC 34.4 % (32.0-36.0); MONO % 5.7 % (0.0-8.0); PLATELET COUNT 158 TH/MM3 (150-450); RED BLOOD COUNT 3.81 MIL/MM3 (4.00-5.30); RED CELL DISTRIBUTION WIDTH 12.7 % (11.6-17.2); WHITE BLOOD COUNT 8.1 TH/MM3 (4.0-11.0)
[2016-11-23 04:17] LABS: APTT (PATIENT) 48.5 SEC (24.3-30.1); INTERNATIONAL NORMALIZED RATIO 0.9 RATIO; PROTHROMBIN TIME - PATIENT 10.4 SEC (9.8-11.6)
[2016-11-23 04:31] LABS: ALT (GPT) 14 U/L (10-53); ANION GAP 6 MEQ/L (5-15); AST (GOT) 13 U/L (15-37); BICARBONATE 29.8 MEQ/L (21.0-32.0); BLOOD UREA NITROGEN 20 MG/DL (7-18); CHLORIDE 105 MEQ/L (98-107); GLOMERULAR FILTRATION RATE 95 ML/MIN (>89); POTASSIUM 3.7 MEQ/L (3.5-5.1); SODIUM (NA) 141 MEQ/L (136-145)
[2016-11-23 04:43] LABS: ALKALINE PHOSPHATASE 95 U/L (45-117); TOTAL BILIRUBIN ADULT 0.4 MG/DL (0.2-1.0)
[2016-11-23 05:07] LABS: CREATINE KINASE 59 U/L (26-192)
[2016-11-23] MEDS ORDERED: GLUCAGON 1 MG/ML VIAL OTHER PRN (05:30)
[2016-11-23] MEDS ORDERED: DEXTROSE 50% IN WATER 50 ML VIAL(D50) IV PRN (05:30)
[2016-11-23] MEDS: LEVOTHYROXINE SODIUM 75 MCG TAB PO SCH (05:43)
[2016-11-23] MEDS: LEVOTHYROXINE SODIUM 100 MCG TAB PO SCH (05:43)
[2016-11-23] MEDS: INSULIN ASPART SUPPLEMENTAL SCALE SQ SCH ×3 (06:12→22:19)
[2016-11-23] MEDS: SODIUM CHLORIDE 0.9% FLUSH 10 ML FLUSH IV FLUSH SCH ×2 (08:37→22:17)
[2016-11-23] MEDS: POTASSIUM CHLORIDE 10 MEQ CAP PO SCH (08:37)
[2016-11-23] MEDS: CARVEDILOL 6.25 MG TAB PO SCH ×2 (08:38→22:16)
[2016-11-23] MEDS: LISINOPRIL 20 MG TAB PO SCH (08:38)
[2016-11-23] MEDS: DOCUSATE SODIUM 50 MG/SENNA 8.6 MG TAB PO SCH ×2 (08:38→21:00)
[2016-11-23] MEDS: ASPIRIN EC 81 MG TABEC PO SCH (08:38)
[2016-11-23 08:49] LABS: APTT (PATIENT) 38.3 SEC (24.3-30.1)
[2016-11-23] MEDS ORDERED: CLOPIDOGREL 75 MG TAB PO SCH (09:00)
--- NOTE | 2016-11-23 11:28 | EKG ---
Date Performed: 11/22/2016 Time Performed: 22:09:45 PTAGE: 61 years EKG: Sinus rhythm MARKED LEFT AXIS DEVIATION LEFT BUNDLE BRANCH BLOCK Since previous tracing, no significant change no usama ABNORMAL ECG PREVIOUS TRACING : 11/19/2016 10.21 DOCTOR: Gabriel Allan Interpretating Date/Time 11/23/2016 11:27:12
[2016-11-23 12:28] LABS: APTT (PATIENT) 36.9 SEC (24.3-30.1)
--- NOTE | 2016-11-23 13:49 | HHI.PR ---
Subjective Remarks Follow-up chest pain/elevated cardiac enzyme 11/23/16-patient seen and examined, she currently denies any chest pain or shortness of breath. However states overnight, she was having some palpitation on and off associated with some fluttering along with shortness of breath Objective Vitals Vital Signs Date Time Temp Pulse Resp B/P Pulse Ox O2 Delivery O2 Flow Rate FiO2 11/23/16 11:37 20 11/23/16 11:00 98.9 97 20 110/65 96 11/23/16 10:03 96 21 11/23/16 08:00 98.6 69 20 144/69 94 11/23/16 05:02 52 11/23/16 04:00 52 11/23/16 03:58 56 113/47 95 11/23/16 03:18 59 11/23/16 02:00 52 11/23/16 01:01 58 168/88 96 11/23/16 01:00 54 11/23/16 00:37 57 18 166/79 98 Room Air 11/23/16 00:05 95 21 11/22/16 23:13 16 11/22/16 23:13 16 11/22/16 23:00 77 20 177/84 98 Room Air 11/22/16 21:46 188/98 11/22/16 21:45 98 Room Air 11/22/16 20:34 98.3 78 16 206/103 97 Room Air I/O 11/22/16 11/22/16 11/22/16 11/23/16 11/23/16 11/23/16 07:00 15:00 23:00 07:00 15:00 23:00 Output Total 300 ml Balance -300 ml Output Urine Total 300 ml Result Diagram: 11/23/16 0329 11/23/16 0329 Imaging Last Impressions Chest X-Ray 11/22/162136 Signed Impressions: Service Date/Time: Tuesday, November 22, 2016 22:10 - CONCLUSION: No infiltrate seen. Submaximal inspiration. Jamaal Zamora MD Objective Remarks GENERAL: NAD SKIN: Warm and dry. HEAD: Normocephalic. EYES: No scleral icterus. No injection or drainage. NECK: Supple, trachea midline. No JVD or lymphadenopathy. CARDIOVASCULAR: Regular rate and rhythm without murmurs, gallops, or rubs. RESPIRATORY: Breath sounds equal bilaterally. No accessory muscle use. GASTROINTESTINAL: Abdomen soft, non-tender, nondistended. MUSCULOSKELETAL: No cyanosis, or edema. BACK: Nontender without obvious deformity. No CVA tenderness. A/P Problem List: (1) Atypical chest pain ICD Code: R07.89 Status: Acute Assessment and Plan 61-year-old female Chest pain CAD with recent 2 stents 11/19/16 Elevated cardiac enzyme Admitted secondary to questionable restenosis of cardiac stents Elevated cardiac enzymes more likely due to recent heart catheterization with stent placement Currently on a heparin drip, aspirin, Plavix, Coreg, lisinopril, statin Will resume diet pending cardiology consultation. Continue ACS rule out monitoring GERD. Continue home meds. Hypertension: Currently on Coreg, lisinopril Diabetes mellitus: Hold home meds. Accu checks. ISS. Monitor BS and adjust as need. HLD and hypothyroidism: Continue home meds Tobacco use: Counselled on risks of continued smoking and different methods of cessation. Dental issues/lymphadenopathy: Chronic issue. Follow up as OP with PCP. No acute dental infection at this time. Bright Velazquez MD Nov 23, 2016 13:49
[2016-11-23] MEDS ORDERED: TICAGRELOR 90 MG TAB PO ONE (17:45)
[2016-11-23 20:43] LABS: APTT (PATIENT) 33.5 SEC (24.3-30.1)
[2016-11-23] MEDS ORDERED: ATORVASTATIN 20 MG TAB PO SCH (21:00)
--- NOTE | 2016-11-23 22:20 | MB ---
cc: DEVI MASTERSON DATE OF CONSULTATION 11/23/2016 HISTORY OF THE PRESENT ILLNESS Ms. Leung is a 63-year-old white female with a history of recent coronary intervention by Dr. Augustin, hypertension, dyslipidemia, diabetes mellitus, and ischemic cardiomyopathy. She presents with substernal chest and left anterior chest discomfort which she had yesterday and two occasions. She states she had mild chest discomfort today. She is being admitted for further evaluation. PAST MEDICAL HISTORY 1. Positive for coronary artery disease. The patient underwent placement of Medtronic Resolute drug-eluting stent 2.25 x 14 mm to the left anterior descending artery and Medtronic Resolute drug-eluting stent 3.0 x 18 mm to the right coronary artery. Ejection fraction was estimated at 45-50% with mild anterior wall hypokinesis. 2. Past medical history is also positive for hypertension. 3. Dyslipidemia. 4. Diabetes mellitus. 5. Gastroesophageal reflux disease. 6. Hypothyroidism., 7. Chronic obstructive pulmonary disease. 8. Anxiety and depression. 9. Exploratory laparotomy. 10. Cholecystectomy. 12. Arthroscopy left knee. 13. Right carpal tunnel surgery. 14. Tubal ligation. 15. D&C. MEDICATIONS 1. Glipizide. 2. Levothyroxine. 3. Vitamin E. 4. Alprazolam. 5. Atorvastatin. 6. Furosemide. 7. Metformin. 8. Carvedilol. 9. Lisinopril. 10. Potassium. 11. Aspirin. 12. Plavix. ALLERGIES CLINDAMYCIN AND PENICILLIN. SOCIAL HISTORY The patient quit smoking last week. She does not drink alcohol. FAMILY HISTORY Positive for heart disease in a brother. REVIEW OF SYSTEMS Is otherwise negative. PHYSICAL EXAMINATION VITAL SIGNS: Blood pressure 154/77, pulse 95 and regular. HEENT: Negative. NECK: 2+ carotid upstroke. No bruits. LUNGS: Clear. HEART: Regular rhythm. No murmur, gallops or rub. ABDOMEN: Soft. No bruits. EXTREMITIES: No LE edema, 2+ distal pulses. NEUROLOGIC: Examination is grossly nonfocal. EKG was reviewed and showed normal sinus rhythm, left axis and left bundle branch block. LABORATORY DATA Hemoglobin 11.7. Potassium 3.7, creatinine 0.6. CK 69, 59, 51. Troponin 0.37, 0.40 and 0.31. BNP 181. DIAGNOSES 1. Unspecified angina. 2. Coronary artery disease, history of recent two-vessel coronary stenting. 3. Mild left ventricular systolic dysfunction. 4. Hypertension. 5. Dyslipidemia. 6. Diabetes mellitus. 7. Anxiety. 8. Gastroesophageal reflux disease. 9. Chronic obstructive pulmonary disease. 10. History of smoking. DISPOSITION Ms. Leung will be monitored on telemetry. We will adjust her medications for angina and intensify her lipid management. I will switch her Plavix to Brilinta. We will continue baby aspirin. We will intensify aggressive modification of her cardiac risk factors. She was again encouraged to stay away from the cigarettes. She will be monitored overnight and if she remains stable we may consider sending her home in the near future. Devi Masterson MD OQ/KK /5:45 PM /10:04 PM KENA
[2016-11-24 04:59] LABS: APTT (PATIENT) 32.6 SEC (24.3-30.1)
[2016-11-24 05:00] VITALS: BP 158/73; PULSE 60; RESP 16; TEMP 97.3; O2SAT 97
[2016-11-24] MEDS: LEVOTHYROXINE SODIUM 100 MCG TAB PO SCH (05:49)
[2016-11-24] MEDS: LEVOTHYROXINE SODIUM 75 MCG TAB PO SCH (05:49)
[2016-11-24] MEDS: INSULIN ASPART SUPPLEMENTAL SCALE SQ SCH ×2 (05:55→11:27)
[2016-11-24 08:02] VITALS: BP 172/81; PULSE 55; RESP 16; TEMP 97.6; O2SAT 96
[2016-11-24 08:03] VITALS: PULSE 57
--- NOTE | 2016-11-24 08:42 | HHI.PR ---
Subjective Remarks Follow-up chest pain/elevated cardiac enzyme 11/23/16-patient seen and examined, she currently denies any chest pain or shortness of breath. However states overnight, she was having some palpitation on and off associated with some fluttering along with shortness of breath 11/24/16-patient seen and examined, complains of episode of chest pressure lasting for a few minutes however now resolved. She had 2 episodes of diarrhea last night but stable this morning. Plavix switched to Brilinta by cardiology Objective Vitals Vital Signs Date Time Temp Pulse Resp B/P Pulse Ox O2 Delivery O2 Flow Rate FiO2 11/24/16 05:00 97.3 60 16 158/73 97 11/23/16 23:44 97.4 60 16 139/75 98 11/23/16 22:20 62 11/23/16 20:45 97.8 57 16 160/76 96 11/23/16 20:00 Room Air 11/23/16 20:00 56 11/23/16 15:00 98.4 95 20 154/77 95 11/23/16 11:37 20 11/23/16 11:00 98.9 97 20 110/65 96 11/23/16 10:03 96 21 I/O 11/23/16 11/23/16 11/23/16 11/24/16 11/24/16 11/24/16 07:00 15:00 23:00 07:00 15:00 23:00 Intake Total 703 ml 308 ml Output Total 300 ml 200 ml 1000 ml Balance -300 ml 503 ml -692 ml Intake Oral 480 ml 240 ml IV Total 223 ml 68 ml Output Urine Total 300 ml 200 ml 1000 ml # Bowel Movements 0 1 Result Diagram: 11/23/16 0329 11/23/16 0329 Objective Remarks GENERAL: NAD SKIN: Warm and dry. HEAD: Normocephalic. EYES: No scleral icterus. No injection or drainage. NECK: Supple, trachea midline. No JVD or lymphadenopathy. CARDIOVASCULAR: Regular rate and rhythm without murmurs, gallops, or rubs. RESPIRATORY: Breath sounds equal bilaterally. No accessory muscle use. GASTROINTESTINAL: Abdomen soft, non-tender, nondistended. MUSCULOSKELETAL: No cyanosis, or edema. BACK: Nontender without obvious deformity. No CVA tenderness. A/P Problem List: (1) Atypical chest pain ICD Code: R07.89 Status: Acute (2) Angina pectoris, unspecified ICD Code: I20.9 Status: Acute Assessment and Plan 61-year-old female Chest pain Unspecified angina CAD with recent 2 stents 11/19/16 Elevated cardiac enzyme Admitted secondary to questionable restenosis of cardiac stents Elevated cardiac enzymes more likely due to recent heart catheterization with stent placement Currently on a heparin drip, aspirin, Brilinta, Coreg, lisinopril, statin. Plavix was switched to Brilinta by cardiology Tobacco cessation strongly advised Appreciate input from cardiology GERD. Continue home meds. Hypertension: Currently on Coreg, lisinopril Diabetes mellitus: Hold home meds. Accu checks. ISS. Monitor BS and adjust as need. HLD and hypothyroidism: Continue home meds Tobacco use: Counselled on risks of continued smoking and different methods of cessation. Dental issues/lymphadenopathy: Chronic issue. Follow up as OP with PCP. No acute dental infection at this time. Bright Velazquez MD Nov 24, 2016 08:42
[2016-11-24 08:45] VITALS: O2SAT 96
[2016-11-24] MEDS ORDERED: TICAGRELOR 90 MG TAB PO SCH (09:00)
[2016-11-24] MEDS: DOCUSATE SODIUM 50 MG/SENNA 8.6 MG TAB PO SCH (09:52)
[2016-11-24] MEDS: CARVEDILOL 6.25 MG TAB PO SCH (09:53)
[2016-11-24] MEDS: ASPIRIN EC 81 MG TABEC PO SCH (09:53)
[2016-11-24] MEDS: POTASSIUM CHLORIDE 10 MEQ CAP PO SCH (09:53)
[2016-11-24] MEDS: LISINOPRIL 20 MG TAB PO SCH (09:53)
[2016-11-24] MEDS: SODIUM CHLORIDE 0.9% FLUSH 10 ML FLUSH IV FLUSH SCH (09:54)
[2016-11-24 10:17] LABS: APTT (PATIENT) 46.5 SEC (24.3-30.1)
[2016-11-24] MEDS: ACETAMINOPHEN 325 MG TAB PO PRN ×2 (10:20)
[2016-11-24 12:02] VITALS: BP 169/73; PULSE 59; RESP 16; TEMP 97.9; O2SAT 94
--- NOTE | 2016-11-24 14:29 | PD.CARD.PN ---
Subjective Subjective Remarks No CP or SOB, feels better Objective Medications Current Medications Medications (Trade) Dose Ordered Sig/Liset Route Start Time Stop Time Status Last Admin (Xanax) 0.25 mg Q6H PRN PO 11/22/16 23:45 11/24/16 11:24 (Ecotrin Ec) 81 mg DAILY PO 11/23/16 09:00 11/24/16 09:53 (Lipitor) 20 mg HS PO 11/23/16 21:00 11/23/16 22:15 (Coreg) 6.25 mg BID PO 11/23/16 09:00 11/24/16 09:53 (Prinivil) 20 mg DAILY PO 11/23/16 09:00 11/24/16 09:53 (KCl) 10 meq DAILY PO 11/23/16 09:00 11/24/16 09:53 Levothyroxine Sodium 100 mcg 100 mcg DAILY@0600 PO 11/23/16 06:00 11/24/16 05:49 (Heparin-D5W Inj) 250 ml @ 0 mls/hr TITRATE IV 11/22/16 23:45 11/23/16 22:20 (Morphine Inj) 2 mg Q3H PRN IV PUSH 11/22/16 23:45 (NS Flush) 2 ml UNSCH PRN IV FLUSH 11/22/16 23:45 (NS Flush) 2 ml BID IV FLUSH 11/23/16 09:00 11/24/16 09:54 (Zofran Inj) 4 mg Q6H PRN IVP 11/22/16 23:45 (Restoril) 15 mg HS PRN PO 11/22/16 23:45 11/23/16 22:34 (Rosalva-Colace) 1 tab BID PO 11/23/16 09:00 11/24/16 09:52 (Milk Of Magnesia Liq) 30 ml Q12H PRN PO 11/22/16 23:45 (Senokot) 17.2 mg Q12H PRN PO 11/22/16 23:45 (Dulcolax Supp) 10 mg DAILY PRN RECTAL 11/22/16 23:45 (Lactulose Liq) 30 ml DAILY PRN PO 11/22/16 23:45 (Synthroid) 75 mcg DAILY@06 PO 11/23/16 06:00 11/24/16 05:49 (Vasotec Inj) 1.25 mg Q6H PRN IV PUSH 11/23/16 01:30 (D50w (Vial) Inj) 50 ml UNSCH PRN IV 11/23/16 05:30 (Glucagon Inj) 1 mg UNSCH PRN OTHER 11/23/16 05:30 (Brilinta) 90 mg BID PO 11/24/16 09:00 11/24/16 09:53 (Tylenol) 650 mg Q4H PRN PO 11/23/16 23:30 11/24/16 10:20 Vital Signs / I&O Vital Signs Date Time Temp Pulse Resp B/P Pulse Ox O2 Delivery O2 Flow Rate FiO2 11/24/16 08:45 96 21 11/24/16 08:40 Room Air 11/24/16 08:02 97.6 55 16 172/81 96 11/24/16 05:00 97.3 60 16 158/73 97 11/23/16 23:44 97.4 60 16 139/75 98 11/23/16 22:20 62 11/23/16 20:45 97.8 57 16 160/76 96 11/23/16 20:00 Room Air 11/23/16 20:00 56 11/23/16 15:00 98.4 95 20 154/77 95 I/O 11/23/16 11/23/16 11/23/16 11/24/16 11/24/16 11/24/16 07:00 15:00 23:00 07:00 15:00 23:00 Intake Total 703 ml 308 ml Output Total 300 ml 200 ml 1000 ml Balance -300 ml 503 ml -692 ml Intake Oral 480 ml 240 ml IV Total 223 ml 68 ml Output Urine Total 300 ml 200 ml 1000 ml # Bowel Movements 0 1 Physical Exam GENERAL: In NAD SKIN: Warm and dry. HEAD: Normocephalic. EYES: No scleral icterus. No injection or drainage. NECK: Supple, trachea midline. No JVD or lymphadenopathy. CARDIOVASCULAR: Regular rate and rhythm without murmurs, gallops, or rubs. RESPIRATORY: Breath sounds equal bilaterally. No accessory muscle use. GASTROINTESTINAL: Abdomen soft, non-tender, nondistended. MUSCULOSKELETAL: No cyanosis, or edema. Laboratory Laboratory Tests Test 11/23/16 11/24/16 11/24/16 19:57 03:55 09:58 Activated Partial 33.5 SEC 32.6 SEC 46.5 SEC Thromboplast Time Imaging Last Impressions Chest X-Ray 11/22/160 Signed Impressions: Service Date/Time: Tuesday, November 22, 2016 22:10 - CONCLUSION: No infiltrate seen. Submaximal inspiration. Jamaal Zamora MD Assessment and Plan Problem List: (1) Chest pain (2) Coronary artery disease (3) Cardiomyopathy (4) Type II diabetes mellitus (5) Dyslipidemia (6) Essential hypertension Assessment and Plan No recurrent CP. Mild troponin elevation related to recent PCI. Continue Brilinta, baby ASA, high dose statin and Imdur. Increase activity. DC home. F/u w Dr. Augustin as outpatient within 1 week. Devi Masterson MD Nov 24, 2016 14:29
[2016-11-24] MEDS ORDERED: BRIL90TA PO (15:10)
[2016-11-24] MEDS ORDERED: LIPI40TA PO (15:13)
--- NOTE | 2016-11-24 15:16 | HHI.DS ---
Discharge Summary Admission Date Nov 22, 2016 at 23:43 Discharge Date: Nov 24, 2016 Admitting Diagnosis CP R/0 DC, elevated troponin, recent stent placement (1) Atypical chest pain ICD Code: R07.89 (2) Angina pectoris, unspecified ICD Code: I20.9 Procedures None Brief History - From Admission 61-year-old female with history of CAD with recent 2 stents placed, systolic CHF EF 37% , hypertension, hyperlipidemia, diabetes, GERD, hypothyroidism, COPD, anxiety and depression, and tobacco use presents with complaint of chest pain. CBC/BMP: 11/23/16 0329 11/23/16 0329 Significant Findings Laboratory Tests Test 11/22/16 11/23/16 11/23/16 11/23/16 21:50 03:29 08:31 11:45 Eosinophils (%) (Auto) 5.8 % (0.0-4.0) 6.3 % (0.0-4.0) Eosinophils # (Auto) 0.5 TH/MM3 0.5 TH/MM3 (0-0.4) (0-0.4) Prothrombin Time 9.7 SEC (9.8-11.6) Blood Urea Nitrogen 23 MG/DL (7-18) 20 MG/DL (7-18) Estimat Glomerular Filtration 87 ML/MIN (>89) Rate Random Glucose 147 MG/DL 150 MG/DL (74-106) (74-106) Aspartate Amino Transf 9 U/L (15-37) 13 U/L (15-37) (AST/SGOT) Troponin I 0.37 NG/ML 0.40 NG/ML 0.31 NG/ML (0.02-0.05) (0.02-0.05) (0.02-0.05) B-Type Natriuretic Peptide 181 PG/ML (0-100) Red Blood Count 3.81 MIL/MM3 (4.00-5.30) Hematocrit 34.1 % (35.0-46.0) Activated Partial 48.5 SEC 38.3 SEC 36.9 SEC Thromboplast Time (24.3-30.1) (24.3-30.1) (24.3-30.1) Total Protein 6.2 GM/DL (6.4-8.2) Albumin 3.2 GM/DL (3.4-5.0) Test 11/23/16 11/24/16 11/24/16 19:57 03:55 09:58 Activated Partial 33.5 SEC 32.6 SEC 46.5 SEC Thromboplast Time (24.3-30.1) (24.3-30.1) (24.3-30.1) Imaging Last Impressions Chest X-Ray 11/22/162136 Signed Impressions: Service Date/Time: Tuesday, November 22, 2016 22:10 - CONCLUSION: No infiltrate seen. Submaximal inspiration. Jamaal Zamora MD PE at Discharge GENERAL: NAD SKIN: Warm and dry. HEAD: Normocephalic. EYES: No scleral icterus. No injection or drainage. NECK: Supple, trachea midline. No JVD or lymphadenopathy. CARDIOVASCULAR: Regular rate and rhythm without murmurs, gallops, or rubs. RESPIRATORY: Breath sounds equal bilaterally. No accessory muscle use. GASTROINTESTINAL: Abdomen soft, non-tender, nondistended. MUSCULOSKELETAL: No cyanosis, or edema. BACK: Nontender without obvious deformity. No CVA tenderness. Hospital Course Patient admitted secondary to unspecified angina for which she was treated medically with initially heparin drip, statin, beta weston and Brilinta. As symptoms improved. She was started on a sliding scale and continue on her medication for other chronic medical conditions. On discharge her Lipitor was increased to 40 mg at bedtime and patient was started on Imdur. She will follow -up with cardiology Pt Condition on Discharge: Stable Discharge Disposition: Discharge Home Discharge Time: > 30 minutes Discharge Instructions DIET: Follow Instructions for: Diabetic Diet Activities you can perform: Regular-No Restrictions Follow up Referrals: Cardiology PCP Follow-up - 1 Week New Medications: Atorvastatin (Lipitor) 40 Mg Tab 40 MG PO HS Cholesterol Management #30 Ref 3 TAB Isosorbide Mononitrate ER (Isosorbide Mononitrate ER) 30 Mg Alejandro 30 MG PO DAILY Prevent Chest Pain #30 Ref 3 TAB Ticagrelor (Brilinta) 90 Mg Tab 90 MG PO BID Prevent Blood Clot #90 Ref 3 TAB Continued Medications: Alprazolam (Alprazolam) 0.25 Mg Tab 0.25 MG PO Q6H PRN ANXIETY Ref [address] (Aspirin 81) 81 Mg Tabdr 81 MG PO DAILY Ref 0 TAB Carvedilol (Carvedilol) 6.25 Mg Tab 6.25 MG PO BID Ref 0 TAB Furosemide (Furosemide) 20 Mg Tab 20 MG PO DAILY Ref 0 TAB Glipizide (Glipizide) 5 Mg Tab 5 MG PO BIDAC Take 30 minutes before a meal Blood Sugar Management TAB Levothyroxine (Levothyroxine) 175 Mcg Tab 175 MCG PO DAILY TAB Lisinopril (Lisinopril) 20 Mg Tab 20 MG PO DAILY Ref 0 TAB Metformin (Metformin) 1,000 Mg Tab 1000 MG PO BIDPC With meals Blood Sugar Management Ref 0 TAB Potassium Chloride ER (Potassium Chloride ER) 10 Meq Cap 10 MEQ PO DAILY Electrolyte Replacement Ref 0 CAP Vitamin E (Vitamin E) 200 Unit Cap 400 UNITS PO DAILY Nutritional Supplement Ref 0 CAP Discontinued Medications: Atorvastatin (Atorvastatin) 20 Mg Tab 20 MG PO HS Cholesterol Management Ref 0 TAB Clopidogrel (Plavix) 75 Mg Tab 75 MG PO DAILY Blood Clot Prevention #30 Ref 0 TAB Bright Velazquez MD Nov 24, 2016 15:16
[2016-11-24] MEDS ORDERED: ISOS30TA3 PO (15:18)
== END 2016-11-24 16:53 | disposition home or self-care (01) | DRG 303 ==
LOC: NEPE 20:32 → NEDA 23:43 → HCIN 11-23 01:02 → N04B 11-23 17:54
PROVIDERS: ADMIT Family Medicine; ATTEND Family Medicine
DX: I25.119 Atherosclerotic heart disease of native coronary artery with unspecified angina pectoris (principal); I11.0 Hypertensive heart disease with heart failure; I50.22 Chronic systolic (congestive) heart failure; J44.9 Chronic obstructive pulmonary disease, unspecified; K21.9 Gastro-esophageal reflux disease without esophagitis; E11.9 Type 2 diabetes mellitus without complications; M06.9 Rheumatoid arthritis, unspecified; F41.9 Anxiety disorder, unspecified; F32.9 Major depressive disorder, single episode, unspecified; E03.9 Hypothyroidism, unspecified; I44.7 Left bundle-branch block, unspecified; E78.5 Hyperlipidemia, unspecified; R59.1 Generalized enlarged lymph nodes; I25.5 Ischemic cardiomyopathy; R74.8 Abnormal levels of other serum enzymes; R19.7 Diarrhea, unspecified; G89.29 Other chronic pain; M54.9 Dorsalgia, unspecified; M19.90 Unspecified osteoarthritis, unspecified site; F10.21 Alcohol dependence, in remission; F17.210 Nicotine dependence, cigarettes, uncomplicated; Z79.84 Long term (current) use of oral hypoglycemic drugs; Z82.3 Family history of stroke; Z82.49 Family history of ischemic heart disease and other diseases of the circulatory system; Z83.3 Family history of diabetes mellitus; Z88.0 Allergy status to penicillin; Z88.1 Allergy status to other antibiotic agents; Z95.5 Presence of coronary angioplasty implant and graft
CPT/HCPCS: 71010; 80053; 82550; 82948; 83735; 83880; 84484; 85025; 85610; 85730; 93005; 96374; J1644; J1815; J2270

== ENCOUNTER 2017-06-02 10:17 | Emergency (ER) | payer OTHER ==
[~2017-06-02] VITALS: Ht 162.6 cm; Wt 88.0 kg
[~2017-06-02 10:17] MED LIST changes: -ASPI-110 PO; +ASPI1TAB57 PO; -ASPI1TAB69 PO; -ASPI325T PO; -ATOR20TA15 PO; +BRIL90TA PO; -CARV6.25 PO; -FENO1TAB46 PO; -FURO1TAB62 PO; +ISOS30TA3 PO; -K-TA10TA PO; +LIPI40TA PO; -PLAV75TA29 PO; -XANA1TAB2 PO; -ZANT150T2 PO
[2017-06-02 10:45] VITALS: BP 180/88; PULSE 64; RESP 18; O2SAT 97
[2017-06-02] MEDS ORDERED: SODIUM CHLORIDE 0.9% FLUSH 10 ML FLUSH IVF PRN (10:45)
[2017-06-02] MEDS ORDERED: ALPRAZolam 1 MG TAB PO ONE (10:45)
--- NOTE | 2017-06-02 10:52 | PD ---
HPI . Palpitations Chief Complaint: Cardiac Complaint Time Seen by Provider: 10:31 Travel History International Travel<30 days: No Contact w/Intl Traveler<30days: No History of Present Illness HPI Patient presents with chief complaint of palpitations. She describes "flip- flops" which have been more prominent today than usual. This is associated with some pressure-like chest discomfort and some shortness of breath. Symptoms started this morning and have been continuous since that time. When asked to describe the severity, she states that it is "really scary." Her symptoms are exacerbated by moving around. This patient has known coronary artery disease and is status post two-vessel angioplasty/stent on 11/30/16. She reports that she cannot take nitrates secondary to severe headaches. She states that she took her usual dose of aspirin last night. PFSH Past Medical History Hx Anticoagulant Therapy: Yes (ASA) Arthritis: Yes (RHEUMATOID AND OSTEO) Asthma: Yes Anxiety: Yes Depression: Yes Heart Rhythm Problems: No Cancer: No Cardiac Catheterization: Yes (stent x2) Cardiovascular Problems: Yes High Cholesterol: Yes Chemotherapy: Yes Congestive Heart Failure: Yes COPD: Yes Diabetes: Yes Diminished Hearing: No Endocrine: Yes Gastrointestinal Disorders: Yes GERD: Yes Genitourinary: Yes Hiatal Hernia: Yes Hypertension: Yes Immune Disorder: No Implanted Vascular Access Dvce: No Kidney Stones: Yes Musculoskeletal: Yes (CHRONIC PAIN) Psychiatric: Yes Reproductive: No Respiratory: Yes (copd, chf) Immunizations Current: Yes Myocardial Infarction: No Seizures: Yes (after surgery ) Thyroid Disease: Yes (Hypo-) Menopausal: Yes Dilation and Curettage (D&C): Yes Tubal Ligation: Yes Past Surgical History Abdominal Surgery: Yes (exploratory lap) Cholecystectomy: Yes Coronary Artery Bypass Graft: No Tonsillectomy: Yes (and adenoids) Other Surgery: Yes Social History Alcohol Use: No Tobacco Use: Yes (1/2ppd) Substance Use: No Allergies-Medications (Allergen,Severity, Reaction): Coded Allergies: clindamycin (Unverified Allergy, Severe, RASH, 01/26/17) penicillin G (Unverified Allergy, Severe, "FACE SWELLS UP", 01/26/17) Reported Meds & Prescriptions Reported Meds & Active Scripts Active Lipitor (Atorvastatin Calcium) 40 Mg Tab 40 Mg PO HS Brilinta (Ticagrelor) 90 Mg Tab 90 Mg PO BID Reported Vitamin B-1 (Thiamine HCl) 100 Mg Tab 100 Mg PO DAILY Ranexa ER 12 HR (Ranolazine) 500 Mg Tab 50 Mg PO HS Ranexa ER 12 HR (Ranolazine) 1,000 Mg Tab 100 Mg PO DAILY Aspirin 81 (Aspirin) 81 Mg Tabdr 81 Mg PO DAILY Potassium Chloride ER (Potassium Chloride) 10 Meq Cap 10 Meq PO DAILY Lisinopril 20 Mg Tab 20 Mg PO DAILY Carvedilol 6.25 Mg Tab 6.25 Mg PO BID Metformin (Metformin HCl) 1,000 Mg Tab 1,000 Mg PO BIDPC With meals Furosemide 20 Mg Tab 20 Mg PO DAILY Alprazolam 0.25 Mg Tab 0.25 Mg PO Q6H PRN Vitamin E 200 Unit Cap 400 Units PO DAILY Levothyroxine (Levothyroxine Sodium) 175 Mcg Tab 175 Mcg PO DAILY Glipizide 5 Mg Tab 5 Mg PO BIDAC Take 30 minutes before a meal Review of Systems Except as stated in HPI: all other systems reviewed are Neg Cardiovascular: Positive: Chest Pain or Discomfort, Palpitations Respiratory: Positive: Shortness of Breath Psychiatric: Positive: Anxiety Physical Exam Narrative GENERAL: This patient looks very anxious. SKIN: warm/dry. Good color. HEAD: Normocephalic. Atraumatic. EYES: Pupils equal and round. No scleral icterus. No injection or drainage. ENT: No nasal bleeding or discharge. Mucous membranes pink and moist. NECK: Trachea midline. Full range of motion without pain.. CARDIOVASCULAR: Regular rate and rhythm. Heart sounds are normal. RESPIRATORY: No accessory muscle use. Clear to auscultation. Breath sounds equal bilaterally. GASTROINTESTINAL: Abdomen soft. Nontender. Bowel sounds present. Nondistended. MUSCULOSKELETAL: No obvious deformities. NEUROLOGICAL: Awake and alert. No obvious cranial nerve deficits. Motor grossly within normal limits. Normal speech. PSYCHIATRIC: Anxious. Data Data Last Documented VS Vital Signs Date Time Temp Pulse Resp B/P (MAP) Pulse Ox O2 Delivery O2 Flow Rate FiO2 06/02/17 11:42 62 18 155/77 (103) 97 Room Air Orders Orders Basic Metabolic Panel (Bmp) (06/02/17 10:35) Complete Blood Count With Diff (06/02/17 10:35) Magnesium (Mg) (06/02/17 10:35) Prothrombin Time / Inr (Pt) (06/02/17 10:35) Act Partial Throm Time (Ptt) (06/02/17 10:35) Troponin I (06/02/17 10:35) Chest, Single Ap (06/02/17 10:35) Ecg Monitoring (06/02/17 10:35) Iv Access Insert/Monitor (06/02/17 10:35) Oximetry (06/02/17 10:35) Sodium Chloride 0.9% Flush (Ns Flush) (06/02/17 10:45) Alprazolam (Xanax) (06/02/17 11:15) Labs Laboratory Tests Test 06/02/17 10:50 White Blood Count 7.1 TH/MM3 Red Blood Count 4.09 MIL/MM3 Hemoglobin 12.3 GM/DL Hematocrit 37.3 % Mean Corpuscular Volume 91.0 FL Mean Corpuscular Hemoglobin 30.1 PG Mean Corpuscular Hemoglobin Concent 33.1 % Red Cell Distribution Width 12.6 % Platelet Count 190 TH/MM3 Mean Platelet Volume 9.2 FL Neutrophils (%) (Auto) 63.5 % Lymphocytes (%) (Auto) 26.0 % Monocytes (%) (Auto) 5.4 % Eosinophils (%) (Auto) 4.5 % Basophils (%) (Auto) 0.6 % Neutrophils # (Auto) 4.6 TH/MM3 Lymphocytes # (Auto) 1.8 TH/MM3 Monocytes # (Auto) 0.4 TH/MM3 Eosinophils # (Auto) 0.3 TH/MM3 Basophils # (Auto) 0.0 TH/MM3 CBC Comment DIFF FINAL Differential Comment Prothrombin Time 9.6 SEC Prothromb Time International Ratio 0.9 RATIO Activated Partial Thromboplast Time 20.3 SEC Blood Urea Nitrogen 19 MG/DL Creatinine 0.95 MG/DL Random Glucose 161 MG/DL Calcium Level 9.4 MG/DL Magnesium Level 1.8 MG/DL Sodium Level 138 MEQ/L Potassium Level 4.5 MEQ/L Chloride Level 104 MEQ/L Carbon Dioxide Level 24.3 MEQ/L Anion Gap 10 MEQ/L Estimat Glomerular Filtration Rate 59 ML/MIN Troponin I LESS THAN 0.02 NG/ML Exceptions Acute Myocardial Infarction ASA Not Given on Arrival: Already taken by patient MDM Medical Decision Making Medical Screen Exam Complete: Yes Emergency Medical Condition: Yes Medical Record Reviewed: Yes (PMH of HTN, CAD s/p stents X 2 in November, HTN, HL, DM, CHF) Interpretation(s) EKG shows a sinus rhythm with a left bundle branch block. Her EKG is unchanged from previous. Differential Diagnosis Differential diagnosis of palpitations includes but is not limited to anxiety, SVT, aVF with RVR, VT, sinus tachycardia, PVCs Narrative Course This patient presents with the chief complaint of palpitations associated with some chest discomfort and shortness of breath. She looks very anxious. Ativan is out of stock. I have ordered Xanax. She does have cardiac risk factors. Cardiac workup was in progress. CBC & BMP Diagram 06/02/17 10:50 Calcium Level 9.4, Magnesium Level 1.8 trop < 0.02 CXR: A single view of the chest demonstrates the lungs to be symmetrically aerated without evidence of mass, infiltrate or effusion. The cardiomediastinal contours are unremarkable. Osseous structures are intact. The chest x-ray was independently viewed by me. The patient reports that all of her symptoms are improving with the Xanax. I feel if this patient's symptoms are related to anxiety. The patient is now sound asleep. She is stable for discharge to home. Diagnosis Primary Impression: Palpitations Additional Impressions: Chest pain Qualified Codes: R07.9 - Chest pain, unspecified Dyspnea Qualified Codes: R06.00 - Dyspnea, unspecified Anxiety Patient Instructions: Anxiety (DC), General Instructions Additional Instructions: Your potassium level is normal at 4.5. You may not need potassium replacement. Disposition: 01 DISCHARGE HOME Condition: Stable Marily Collins MD Jun 02, 2017 10:52
[2017-06-02 11:01] LABS: AUTOMATED NEUTROPHIL # 4.6 TH/MM3 (1.8-7.7); BASOPHIL % 0.6 % (0.0-2.0); EOSINOPHIL # 0.3 TH/MM3 (0-0.4); EOSINOPHIL % 4.5 % (0.0-4.0); HEMATOCRIT 37.3 % (35.0-46.0); HEMOGLOBIN 12.3 GM/DL (11.6-15.3); LYMPHOCYTE # 1.8 TH/MM3 (1.0-4.8); MEAN CORPUSCULAR HEMOGLOBIN 30.1 PG (27.0-34.0); MEAN CORPUSCULAR HGB CONC 33.1 % (32.0-36.0); MEAN PLATELET VOLUME 9.2 FL (7.0-11.0); MONO % 5.4 % (0.0-8.0); MONOCYTE # 0.4 TH/MM3 (0-0.9); NEUT % 63.5 % (16.0-70.0); PLATELET COUNT 190 TH/MM3 (150-450); RED BLOOD COUNT 4.09 MIL/MM3 (4.00-5.30); RED CELL DISTRIBUTION WIDTH 12.6 % (11.6-17.2); WHITE BLOOD COUNT 7.1 TH/MM3 (4.0-11.0)
[2017-06-02 11:12] LABS: CHLORIDE 104 MEQ/L (98-107); SODIUM (NA) 138 MEQ/L (136-145)
[2017-06-02 11:14] LABS: CALCIUM 9.4 MG/DL (8.5-10.1)
[2017-06-02 11:15] LABS: BICARBONATE 24.3 MEQ/L (21.0-32.0); BLOOD UREA NITROGEN 19 MG/DL (7-18); GLUCOSE,RANDOM 161 MG/DL (74-106); MAGNESIUM 1.8 MG/DL (1.5-2.5)
[2017-06-02] MEDS ORDERED: ALPRAZolam 0.5 MG TAB PO ONE (11:15)
[2017-06-02 11:17] VITALS: RESP 18; O2SAT 97
[2017-06-02 11:19] LABS: CREATININE 0.95 MG/DL (0.50-1.00); GLOMERULAR FILTRATION RATE 59 ML/MIN (>89)
[2017-06-02 11:22] LABS: INTERNATIONAL NORMALIZED RATIO 0.9 RATIO; PROTHROMBIN TIME - PATIENT 9.6 SEC (9.8-11.6)
[2017-06-02 11:23] LABS: TROPONIN I LESS THAN 0.02 NG/ML (0.02-0.05)
--- NOTE | 2017-06-02 11:27 | RADRPT ---
EXAM DATE/TIME: 06/02/2017 10:57 [facility] COMPARISON: CHEST SINGLE AP, November 22, 2016, 22:10. INDICATIONS : Chest pressure, heart palpatations, cough. MEDICAL HISTORY : Gastroesophageal reflux disease. Chronic obstructive pulmonary disease. Hypothyroidism. Hypertension, hyperlipidemia and depression. SURGICAL HISTORY : Tubal ligation. Tonsillectomy. Cholecystectomy. ENCOUNTER: Initial ACUITY: 1 day PAIN SCORE: 4/10 LOCATION: chest FINDINGS: A single view of the chest demonstrates the lungs to be symmetrically aerated without evidence of mas s, infiltrate or effusion. The cardiomediastinal contours are unremarkable. Osseous structures are intact. CONCLUSION: No acute disease. Benigno Aguiar MD FACR on June 02, 2017 at 11:24 Board Certified Radiologist. This report was verified electronically.
[2017-06-02 11:42] VITALS: BP 155/77; PULSE 62; RESP 18; O2SAT 97
[2017-06-02] MEDS ORDERED: RANE1000 PO (11:49)
[2017-06-02] MEDS ORDERED: VITA100T54 PO (11:49)
[2017-06-02] MEDS ORDERED: RANO500 PO (11:49)
[2017-06-02 12:41] VITALS: BP 137/69
--- NOTE | 2017-06-03 15:31 | EKG ---
Date Performed: 06/02/2017 Time Performed: 10:25:27 PTAGE: 61 years EKG: Sinus rhythm MARKED LEFT AXIS DEVIATION LEFT BUNDLE BRANCH BLOCK ABNORMAL ECG PREVIOUS TRACING : 11/22/2016 22.09 Compared to prior tracing no significant change DOCTOR: Jordan Hunter Interpretating Date/Time 06/03/2017 15:30:53
== END 2017-06-02 12:53 | disposition home or self-care (01) ==
LOC: PHED 10:17
DX: R00.2 Palpitations (principal); R07.9 Chest pain, unspecified; R06.00 Dyspnea, unspecified; F41.9 Anxiety disorder, unspecified; I44.7 Left bundle-branch block, unspecified; E78.00 Pure hypercholesterolemia, unspecified; I11.0 Hypertensive heart disease with heart failure; I25.10 Atherosclerotic heart disease of native coronary artery without angina pectoris; I50.9 Heart failure, unspecified; J44.9 Chronic obstructive pulmonary disease, unspecified; E11.9 Type 2 diabetes mellitus without complications; E03.9 Hypothyroidism, unspecified; F17.210 Nicotine dependence, cigarettes, uncomplicated
CPT/HCPCS: 71010; 80048; 83735; 84484; 85025; 85610; 85730; 93005; 99285

== ENCOUNTER 2018-03-08 09:50 | Observation (INO) ==
[2018-03-08] MEDS ORDERED: Sod Chloride 0.9% Inj 1,000 ML IV.SIG ONE (10:52)
[2018-03-08] MEDS ORDERED: Morphine Inj 4 MG/ML Vial IV.PUSH ONE (11:04)
--- NOTE | 2018-03-08 11:06 | ED ---
HPI General Chief complaint: Urogenital-Female Stated complaint: Poss Kidney Stone/Infection/was seen Fri Time Seen by Provider: 03/08/18 10:52 Source: patient Mode of arrival: ambulatory Limitations: no limitations History of Present Illness HPI Narrative: Patient is a 62-year-old female who returns to the emergency room for evaluation of right flank pain. Patient reports that her pain began about 2 weeks ago, she was seen in the emergency room on March 04, 2018 was told that she had a kidney stone with a kidney infection. Patient reports that she has been taking her antibiotics as prescribed, reports that she felt fine up until this morning when she had severe pain to her right flank rating to her groin. Patient reports at this point, pain is constant, she did feel nauseous and did vomit with this pain. Patient had a CT of abdomen pelvis on March 04, 2018, it showed a 1 mm calcification distal to the third right ureter just above the bladder without significant obstruction. She was sent home with a prescription for ciprofloxacin 500 mg for 7 days. She is currently still taking the antibiotics. MD Complaint: "UTI" Onset (ago): week(s) Severity: moderate Severity scale (1-10): 8 Quality: Sharp Related Data Home Medications Medication Instructions Recorded Confirmed alprazolam 0.25 mg PO BID PRN 03/04/18 03/08/18 amitriptyline 25 mg PO HS 03/04/18 03/08/18 aspirin [Aspirin Low Dose] 81 mg PO DAILY 03/04/18 03/08/18 atorvastatin 20 mg PO HS 03/04/18 03/08/18 carvedilol 6.25 mg PO BID 03/04/18 03/08/18 furosemide 20 mg PO DAILY 03/04/18 03/08/18 glipizide 5 mg PO BID 03/04/18 03/08/18 hydrocodone-acetaminophen 1 tab PO Q6H PRN 03/04/18 03/08/18 levothyroxine 175 mcg PO DAILY 03/04/18 03/08/18 lisinopril 40 mg PO HS 03/04/18 03/08/18 metformin 1,000 mg PO BID 03/04/18 03/08/18 ranolazine [Ranexa] 1,000 mg PO Q12H 03/04/18 03/08/18 ticagrelor [Brilinta] 90 mg PO BID 03/04/18 03/08/18 Previous Rx's Medication Instructions Recorded ciprofloxacin HCl [Cipro] 500 mg PO BID #14 tab 03/04/18 Allergies Allergy/AdvReac Type Severity Reaction Status Date / Time clindamycin Allergy Severe RASH Verified 03/08/18 10:14 penicillin G Allergy Severe "FACE Verified 03/08/18 10:14 SWELLS UP" Review of Systems ROS: all other systems reviewed are negative [facility] History History Provided By: Patient Medical History Medical History Arthritis (Acute) Diabetes (Acute) Heart attack (Acute) Hypertension (Acute) Hypothyroid (Acute) Kidney stone (Acute) Surgical History Surgical History History of intravascular stent placement (Acute) Hx laparoscopic cholecystectomy (Acute) Hx of carpal tunnel repair (Acute) Social History Social History Substance History: No History of Abuse Smoking Status: Heavy tobacco smoker Tobacco Type: Cigarettes How Often Do You Have a Drink Containing Alcohol: Never Recent Travel in [facility] within the Last 8 Weeks: No Recent Out of Country Travel within the Last 8 Weeks: No Exam Narrative Exam Narrative: GENERAL: Moderate distress SKIN: Focused skin assessment warm/dry. HEAD: Atraumatic. Normocephalic. EYES: Pupils equal and round. No scleral icterus. No injection or drainage. ENT: No nasal bleeding or discharge. Mucous membranes pink and moist. NECK: Trachea midline. No JVD. CARDIOVASCULAR: Regular rate and rhythm. No murmur appreciated. RESPIRATORY: No accessory muscle use. Clear to auscultation. Breath sounds equal bilaterally. GASTROINTESTINAL: Abdomen soft, non-tender, nondistended. Hepatic and splenic margins not palpable. Patient with right sided flank pain MUSCULOSKELETAL: No obvious deformities. No clubbing. No cyanosis. No edema. NEUROLOGICAL: Awake and alert. No obvious cranial nerve deficits. Motor grossly within normal limits. Normal speech. PSYCHIATRIC: Appropriate mood and affect; insight and judgment normal. Course Initial Documented Vital Signs Temperature 98.4 F 03/08/18 10:11 Pulse Rate 97 H 03/08/18 10:11 Respiratory Rate 16 03/08/18 10:11 Blood Pressure 163/80 H 03/08/18 10:11 Pulse Oximetry 97 03/08/18 10:11 Last Documented Vital Signs Temperature 98.4 F 03/08/18 10:11 Pulse Rate 68 03/08/18 10:13 Respiratory Rate 15 03/08/18 10:13 Blood Pressure 165/76 H 03/08/18 10:13 Pulse Oximetry 97 03/08/18 10:53 Medical Decision Making MDM Narrative Medical decision making narrative: During the course of the patients emergency department visit, the patients history, examination, and differential diagnosis were reviewed with the patient. The patient was placed on a monitoring tech with oximetry and frequent blood pressure monitoring. The patient had an IV access obtained and blood work sent for analysis. The patient was initially provided IVF, IV morphine as well as zofran Patient had a recent CT of abdomen and pelvis - renal ultrasound ordered to evaluate for obstruction and hydronephrosis UC from 03/04 shows 50-100,000 mixed gram positive jass (probable contaminant) The patients laboratory studies were reviewed and remarkable for WBC 9.2, hemoglobin 13.4, hematocrit 39.6, platelets 243 Sodium 134, chloride 103, potassium 4.3, BUN 13, creatinine 1.10 (slightly elevated from previous ER visit on the , at that time creatinine was 0.86) UA is positive for small leuk esterase, 9-20 white blood cells, few bacteria Kidney ultrasound shows small cyst to the right kidney, no hydronephrosis, no perinephric fluid collections. Patient CT the abdomen and pelvis shows a 1 mm stone to the distal right ureter , there is no significant obstruction. Patient with no new hydronephrosis or obvious obstructions on this kidney ultrasound. Patient continues to have significant discomfort to her right flank, there are no signs of obstruction, she most likely has pyelonephritis in addition to her kidney stone which has not past. Patient was offered admission for pain control and to monitor her kidney functions as it has elevated to 1.10 from 0.86 on 03/04/[address] Turner, Request repeat CT of abdomen and pelvis to evaluate for position of stone and a straight cath UA sample Will admit for pain control Medical Screen Exam Complete: Yes Emergency Medical Condition: Yes Differential Diagnosis Differential Diagnosis: Pyelonephritis, nephrolithiasis, UTI, electrolyte abnormality, obstructive uropathy. Medical Records Medical records reviewed: Yes I reviewed the patient's medical records. Lab Data Result diagrams: 03/08/18 11:16 03/08/18 11:16 Lab Results 03/08/18 03/08/18 03/08/18 Range/Units 11:16 11:16 12:01 CBC w Diff Auto diff final WBC 9.2 (4.0-11.0) th/mm3 RBC 4.30 (4.00-5.30) mil/mm3 Hgb 13.4 (11.6-15.3) gm/dL Hct 39.6 (35.0-46.0) % MCV 92.3 (80.0-100.0) fL MCH 31.2 (27.0-34.0) pg MCHC 33.8 (32.0-36.0) % RDW 12.6 (11.6-17.2) % Plt Count 243 (150-450) th/mm3 MPV 9.6 (7.0-11.0) fL Neut % (Auto) 73.1 H (16.0-70.0) % Lymph % (Auto) 19.3 (9.0-44.0) % Hardy % (Auto) 5.1 (0.0-8.0) % Eos % (Auto) 1.9 (0.0-4.0) % Baso % (Auto) 0.6 (0.0-2.0) % Neut # (Auto) 6.6 (1.8-7.7) th/mm3 Lymph # (Auto) 1.8 (1.0-4.8) th/mm3 Hardy # (Auto) 0.5 (0.0-0.9) th/mm3 Eos # (Auto) 0.2 (0.0-0.4) th/mm3 Baso # (Auto) 0.1 (0.0-0.2) th/mm3 WBC Differential . Differential Comment . Sodium 134 L (136-145) meq/L Potassium 4.3 (3.5-5.1) meq/L Chloride 103 (98-107) meq/L Carbon Dioxide 22.1 (21.0-32.0) meq/L Anion Gap 9 (5-15) meq/L BUN 13 (7-18) mg/dL Creatinine 1.10 H (0.50-1.00) mg/dL Estimated GFR 50 L (>89) mL/min Random Glucose 136 H (74-106) mg/dL Calcium 9.0 (8.5-10.1) mg/dL Total Bilirubin 0.5 (0.2-1.0) mg/dL AST 14 L (15-37) U/L ALT 25 (10-53) U/L Alkaline Phosphatase 83 (45-117) U/L Total Protein 7.3 (6.4-8.2) g/dL Albumin 3.9 (3.4-5.0) g/dL Ur Collection Type Clean catch Urine Color Yellow (Yellw/Straw) Urine Clarity Slightly cloudy (Clear) Urine pH 5.5 (5.0-8.5) Ur Specific [place] 1.025 (1.002-1.035) Urine Protein Negative (Neg-Trace) mg/dL Urine Glucose (UA) Negative (Negative) mg/dL Urine Ketones Negative (Negative) mg/dL Urine Occult Blood Negative (Negative) Urine Nitrate Negative (Negative) Urine Bilirubin Negative (Negative) Urine Urobilinogen 0.2 (Less than 2) mg/dL Ur Leukocyte Esterase Small H (Negative) Urine WBC 9-20 H (0-5) /hpf Urine WBC Clumps Few H (None) Ur Squamous Epith Cells Greater than 10 H (0-5) /hpf Amorphous Sediment Moderate H (None) /hpf Urine Bacteria Few H (None) /hpf Hyaline Casts 4-10 H (0-3) /lpf Urine Mucus Few H (Occasional) /lpf Micro UA Comment Culture indicated Ur Microscopic Review Microscopic reviewed Urine Culture Comments Culture indicated Urine Collection Time 1201 hours Imaging Data Radiologist's impression: Abdomen/Bladder Ultrasound 03/08/18 11:03 CONCLUSION: 1. Small cyst right kidney. No hydronephrosis. No perinephric fluid collections. Discharge Plan Discharge Disposition Patient Disposition: 30 Still Patient Discharge Condition Condition: Stable Discharge Details Diagnosis: Stone, kidney, Acute UTI Physicians Team ED Provider: Joycelyn Vargas Primary Care Provider: Michael Wang Rxs /Orders / Referrals /Forms Prescriptions: No Action levothyroxine 175 mcg Tablet 175 mcg PO DAILY RF: 0 carvedilol 6.25 mg Tablet 6.25 mg PO BID RF: 0 atorvastatin 20 mg Tablet 20 mg PO HS RF: 0 hydrocodone-acetaminophen 5-325 mg Tablet 1 tab PO Q6H PRN (Reason: Pain) RF: 0 alprazolam 0.25 mg Tablet 0.25 mg PO BID PRN (Reason: Anxiety) RF: 0 amitriptyline 25 mg Tablet 25 mg PO HS RF: 0 metformin 1,000 mg Tablet 1,000 mg PO BID RF: 0 furosemide 20 mg Tablet 20 mg PO DAILY RF: 0 lisinopril 40 mg Tablet 40 mg PO HS RF: 0 glipizide 5 mg Tablet 5 mg PO BID RF: 0 ticagrelor [Brilinta] 90 mg Tablet 90 mg PO BID RF: 0 aspirin [Aspirin Low Dose] 81 mg Tablet,Delayed Release (Dr/Ec) 81 mg PO DAILY RF: 0 ranolazine [Ranexa] 1,000 mg Tablet Extended Release 12 Hr 1,000 mg PO Q12H RF: 0 ciprofloxacin HCl [Cipro] 500 mg tablet 500 mg PO BID Qty: 14 RF: 0 Discharge Interventions Interventions: Vital Signs Last Done: 03/08/18 10:13 Status ED Status: With Doctor
[2018-03-08] MEDS ORDERED: Sod Chloride 0.9% Inj 1,000 ML IV.SIG SCH (11:15)
[2018-03-08 11:32] LABS: Baso # (Auto) 0.1 th/mm3 (0.0-0.2); Baso % (Auto) 0.6 % (0.0-2.0); Eos # (Auto) 0.2 th/mm3 (0.0-0.4); Eos % (Auto) 1.9 % (0.0-4.0); Hematocrit 39.6 % (35.0-46.0); Hemoglobin 13.4 gm/dL (11.6-15.3); Lymph # (Auto) 1.8 th/mm3 (1.0-4.8); Lymph % (Auto) 19.3 % (9.0-44.0); Mean Corpuscular HGB Conc 33.8 % (32.0-36.0); Mean Corpuscular Hemoglobin 31.2 pg (27.0-34.0); Mean Corpuscular Volume 92.3 fL (80.0-100.0); Mean Platelet Volume 9.6 fL (7.0-11.0); Mono # (Auto) 0.5 th/mm3 (0.0-0.9); Mono % (Auto) 5.1 % (0.0-8.0); Neut # (Auto) 6.6 th/mm3 (1.8-7.7); Neut % (Auto) 73.1 % (16.0-70.0); Platelet Count 243 th/mm3 (150-450); Red Cell Distribution Width 12.6 % (11.6-17.2); White Blood Count 9.2 th/mm3 (4.0-11.0)
[2018-03-08 11:59] LABS: Chloride 103 meq/L (98-107); Potassium 4.3 meq/L (3.5-5.1); Sodium 134 meq/L (136-145)
[2018-03-08 12:03] LABS: Albumin 3.9 g/dL (3.4-5.0); Anion Gap 9 meq/L (5-15); Blood Urea Nitrogen 13 mg/dL (7-18); Carbon Dioxide 22.1 meq/L (21.0-32.0); Glucose,Random 136 mg/dL (74-106)
[2018-03-08 12:06] LABS: Alanine Aminotransferase 25 U/L (10-53); Aspartate Aminotransferase 14 U/L (15-37); Glomerular Filtration Rate 50 mL/min (>89)
[2018-03-08 12:06] LABS: Bilirubin,Urine Negative (Negative); Clarity,Urine Slightly Cloudy (Clear); Color,Urine Yellow (Yellw/Straw); Glucose,Urine (UA) Negative (Negative); Leukocyte Esterase,Urine Small (Negative); Nitrite,Urine Negative (Negative); PH,Urine 5.5 (5.0-8.5); Specific Gravity,Urine 1.025 (1.002-1.035); Urobilinogen,Urine 0.2 mg/dL (Less than 2)
[2018-03-08 12:07] LABS: Total Protein 7.3 g/dL (6.4-8.2)
[2018-03-08 12:08] LABS: Alkaline Phosphatase 83 U/L (45-117)
[2018-03-08 12:17] LABS: Collection Time,Urine 1201 hours
[2018-03-08 12:19] LABS: Amorphous Sediment,Urine Moderate /hpf; Bacteria,Urine Few /hpf; Squamous Epithelial Cell,Urine Greater than 10 /hpf (0-5)
[2018-03-08 12:20] LABS: Mucus,Urine Few /lpf (Occasional)
--- NOTE | 2018-03-08 12:27 | US ---
EXAM DATE: 03/08/2018 11:03 AM EDT AGE/SEX: 62 years / Female INDICATIONS: Right flank pain. CLINICAL DATA: This is the patient's initial encounter. Patient reports that signs and symptoms have been present for 4 - 6 days and indicates a pain score of 2/10. MEDICAL/SURGICAL HISTORY: Diabetes. Hypertension. Hypothyroidism. Myocardial infarction. Kid elizabeth stone. Arthritis. Cholecystectomy. Intravascular stent placement. Carpal tunnel repair. COMPARISON: [facility], CT ABDOMEN & PELVIS W/O CONTRAST, 03/04/2018. . MEASUREMENTS: Right Kidney:__9.0 x 6.3 x 4.2 cm Left Kidney:__9.7 x 4.4 x 5.1 cm FINDINGS: Right Kidney: Normal echotexture and cortical thickness. No mass or hydronephrosis. 1.3 cm cyst midpo le. Left Kidney: Normal echotexture and cortical thickness. No mass or hydronephrosis. Bladder: Within normal limits given the degree of distension. Other: None. CONCLUSION: 1. Small cyst right kidney. No hydronephrosis. No perinephric fluid collections. Electronically signed by: Howie Luque MD 03/08/2018 12:26 PM EDT
[2018-03-08] MEDS ORDERED: ALPRAZolam 0.25 MG Tablet PO PRN (14:41)
[2018-03-08] MEDS ORDERED: Sod Chloride 0.9% Inj 1,000 ML IV.CONT SCH (15:00)
[2018-03-08] MEDS: Ranolazine 500 MG 12HR ER Tablet PO SCH ×2 (15:32→20:46)
--- NOTE | 2018-03-08 15:39 | P.HP ---
History of Present Illness Service: [facility] hospitalist service Primary Care Physician: Michael Wang Chief Complaint: Right flank pain History of Present Illness: 62-year-old white female who returned to the emergency room today for evaluation of right flank pain. Initially started having right flank pain about 10 days ago and came to the emergency room on 03/04/[address] scan of the abdomen showed a 1 mm stone in the distal right ureter above the bladder without any significant obstruction. Her urine showed white blood cells and she was given a prescription for ciprofloxacin 500 mg twice a day for 7 days. She did have some blood in her urine when she in the next day. She was taking hydrocodone at home. Her pain was a little better yesterday but this morning she started having some sweats, chills, and nausea and her flank pain was radiating into the right groin area. An ultrasound did not show any hydronephrosis in the ER and no definite stone. Her urine culture from 03-04-18 showed mixed gram-positive jass. She has had no documented fever. She is admitted for pain control in continued antibiotic therapy. Medical history: Hypertension Type 2 diabetes mellitus with peripheral neuropathy Hyperlipidemia Hypothyroidism Gastroesophageal reflux disease Coronary artery disease with prior UT and prior placement of drug-eluting stents in the proximal right coronary artery and proximal LAD 11/19/2016. Chronic chronic systolic heart failure with dilated cardiomyopathy and mild anterior wall hypokinesis noted on prior cardiac cath 11/19/2016. Gastroesophageal reflux disease Osteoarthritis Anxiety No prior stroke, no cancer, no colon disease She has had kidney stones in the past She has had pneumonia Surgical history: Arthroscopic left knee x2 Tubal ligation Tonsillectomy and adenoidectomy Laparoscopic cholecystectomy Right carpal tunnel release Prior coronary artery stenting of the proximal right coronary artery and proximal LAD with drug-eluting stents on 11/19/2016 Allergies: pioglitazone caused shortness of breath Penicillin called facial swelling Clindamycin Medications Aspirin 81 mg a day Alprazolam 0.25 mg twice a day as needed anxiety Amitriptyline 25 mg at bedtime Atorvastatin 20 mg a day Brilinta 60 mg twice a day Carvedilol 6.25 mg twice a day Glipizide 5 mg twice a day Hydrochlorothiazide 25 mg 1 a day Levothyroxine 175 mcg daily Lisinopril 40 mg a day Metformin at thousand milligrams twice a day Ranexa thousand milligrams every 12 hours Hydrocodone 5/325 1-2 times a day Family history: Her father at 72 Alzheimer's dementia. He had had a prior stroke and hypertension Her mother at 83. She had dementia Her brother has had congestive heart failure prior stroke and diabetes mellitus Her sister has lupus and fibromyalgia Social history: She smokes one half a pack a day and started smoking at age 15. 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 She had some chills and sweats earlier today. HEENT: No sore throat, runny nose, earache. Cardiovascular: No chest pain, heart palpitations, shortness of breath, orthopnea. Pulmonary: No cough, shortness of breath, hemoptysis, pleuritic chest pain Gastrointestinal: No vomiting, abdominal pain, heartburn, indigestion, diarrhea , constipation, melena, rectal bleeding. : No dysuria. She had some blood in her urine about 3-4 days ago. She has had right flank pain radiating into the right groin. Musculoskeletal: Negative Psychiatry: No significant anxiety or depression Extremities: No edema Dermatology: No rash or itching Neuro: No headache, confusion, motor weakness, numbness or tingling PMFSH - History History Provided By: Patient - Medical History Medical History: Medical History (Last Updated 03/08/18 @ 15:12 by Mk Turner MD) Hx of myocardial infarction (Acute) Osteoarthritis (Acute) Anxiety (Acute) COPD (chronic obstructive pulmonary disease) (Acute) GERD (gastroesophageal reflux disease) (Acute) Hyperlipidemia (Acute) Chronic systolic heart failure (Acute) Coronary artery disease (Acute) Type 2 diabetes mellitus with diabetic neuropathy (Acute) Hypothyroid (Acute) Hypertension (Acute) Kidney stone (Acute) - Surgical History Surgical History: Surgical History (Last Updated 03/08/18 @ 15:12 by Mk Turner MD) History of intravascular stent placement (Acute) Hx laparoscopic cholecystectomy Hx of carpal tunnel repair - Tobacco History Tobacco Use In Past 30 Days: Yes Smoking Status: Heavy tobacco smoker Tobacco Type: Cigarettes - Alcohol History How Often Do You Have a Drink Containing Alcohol: Never - Substance Use History Substance History: No History of Abuse - Travel History Recent Travel in the [place] Within the Last 8 Weeks: No Recent Travel Out of the Country Within the Last 8 Weeks: No - Immunization History Tetanus Immunization: Unsure Hx Influenza Vaccine This Season: Yes Medications and Allergies Active Medications: Active Medications Hydrocodone Bitart/Acetaminophen ([place] 10/325) 1 tab PO Q4H PRN PRN Reason: Acute Pain Alprazolam (Xanax) 0.25 mg PO BID PRN PRN Reason: Anxiety Amitriptyline HCl (Elavil) 25 mg PO HS ANNIE Aspirin (Ecotrin) 81 mg PO DAILY ANNIE Atorvastatin Calcium (Lipitor) 20 mg PO HS ANNIE Carvedilol (Coreg) 6.25 mg PO BID ANNIE Glipizide (Glucotrol) 5 mg PO BIDAC ANNIE Hydrochlorothiazide (Hydrodiuril) 25 mg PO DAILY ANNIE Sodium Chloride (Ns Inj) 1,000 mls @ 0 mls/hr IV.SIG BOLUS ANNIE Last Infusion: 03/08/18 13:13 Dose: Infused Sodium Chloride (Ns Inj) 1,000 mls @ 42 mls/hr IV.CONT .[id number] ANNIE Levothyroxine Sodium (Synthroid) 100 mcg PO DAILY@0600 ANNIE Levothyroxine Sodium (Synthroid) 75 mcg PO DAILY@0600 ANNIE Lisinopril (Prinivil) 40 mg PO HS ANNIE Metformin HCl (Glucophage) 1,000 mg PO BIDPC ANNIE Ranolazine (Ranexa) 1,000 mg PO Q12HR ANNIE Sodium Chloride (Ns Flush) 2 ml IV.FLUSH PRN PRN PRN Reason: FLUSH AFTER USING IV ACCESS Ticagrelor (Brilinta) 60 mg PO BID ANNIE Allergies Allergy/AdvReac Type Severity Reaction Status Date / Time clindamycin Allergy Severe RASH Verified 03/08/18 10:14 penicillin G Allergy Severe "FACE Verified 03/08/18 10:14 SWELLS UP" Home Medications Medication Instructions Recorded Confirmed Type alprazolam 0.25 mg PO BID PRN 03/04/18 03/08/18 History amitriptyline 25 mg PO HS 03/04/18 03/08/18 History aspirin [Aspirin Low Dose] 81 mg PO DAILY 03/04/18 03/08/18 History atorvastatin 20 mg PO HS 03/04/18 03/08/18 History carvedilol 6.25 mg PO BID 03/04/18 03/08/18 History glipizide 5 mg PO BID 03/04/18 03/08/18 History hydrocodone-acetaminophen 1 tab PO Q6H PRN 03/04/18 03/08/18 History levothyroxine 175 mcg PO DAILY 03/04/18 03/08/18 History lisinopril 40 mg PO HS 03/04/18 03/08/18 History metformin 1,000 mg PO BID 03/04/18 03/08/18 History ranolazine [Ranexa] 1,000 mg PO Q12H 03/04/18 03/08/18 History hydrochlorothiazide 25 mg PO DAILY 03/08/18 03/08/18 History ticagrelor [Brilinta] 60 mg/dose PO BID 03/08/18 03/08/18 History Exam Vital signs: Vital Signs 03/08/18 10:11 03/08/18 10:13 03/08/18 10:53 Temperature 98.4 F Pulse Rate 97 H 68 Respiratory Rate 16 15 Blood Pressure 163/80 H 165/76 H Pulse Oximetry 97 98 97 Intake & Output 03/07/18 03/08/18 03/08/18 18:59 06:59 18:59 Intake Total 1999 Balance 1999 Weight 85.9 kg Intake: IV 1999 NS Inj 1,000 ML @ Wide Open IV. 1999 SIG BOLUS ANNIE Rx#:[id number] Narrative: This is a pleasant obese white female in no distress. HEENT: Pupils equal, sclera nonicteric, mouth without lesions, TMs intact, nose without lesions; upper dentures Neck: No JVD, neck is supple, no carotid bruit Heart: Regular rate and rhythm without murmurs or gallops Lungs: Clear to auscultation Abdomen: Soft, nontender, no masses, no organomegaly. She has some mild right mid to lower flank tenderness Extremities: No edema, pulses 1 1/2 + both feet no calf tenderness Skin: Without lesions or rash Neuro: Alert, oriented, normal motor exam, sensation intact, cranial nerves intact Results - Labs CBC & Chem 7: 03/08/18 11:16 03/08/18 11:16 Labs: Laboratory Results - last 24 hr 03/08/18 03/08/18 03/08/18 11:16 11:16 12:01 CBC w Diff Auto diff final WBC 9.2 RBC 4.30 Hgb 13.4 Hct 39.6 MCV 92.3 MCH 31.2 MCHC 33.8 RDW 12.6 Plt Count 243 MPV 9.6 Neut % (Auto) 73.1 H Lymph % (Auto) 19.3 [place] % (Auto) 5.1 Eos % (Auto) 1.9 Baso % (Auto) 0.6 Neut # (Auto) 6.6 Lymph # (Auto) 1.8 [place] # (Auto) 0.5 Eos # (Auto) 0.2 Baso # (Auto) 0.1 WBC Differential . Differential Comment . Sodium 134 L Potassium 4.3 Chloride 103 Carbon Dioxide 22.1 Anion Gap 9 BUN 13 Creatinine 1.10 H Estimated GFR 50 L Random Glucose 136 H Calcium 9.0 Total Bilirubin 0.5 AST 14 L ALT 25 Alkaline Phosphatase 83 Total Protein 7.3 Albumin 3.9 Ur Collection Type Clean catch Urine Color Yellow Urine Clarity Slightly cloudy Urine pH 5.5 Ur Specific [place] 1.025 Urine Protein Negative Urine Glucose (UA) Negative Urine Ketones Negative Urine Occult Blood Negative Urine Nitrate Negative Urine Bilirubin Negative Urine Urobilinogen 0.2 Ur Leukocyte Esterase Small H Urine WBC 9-20 H Urine WBC Clumps Few H Ur Squamous Epith Cells Greater than 10 H Amorphous Sediment Moderate H Urine Bacteria Few H Hyaline Casts 4-10 H Urine Mucus Few H Micro UA Comment Culture indicated Ur Microscopic Review Microscopic reviewed Urine Culture Comments Culture indicated Urine Collection Time 1201 - Imaging Impressions Abdomen/Bladder Ultrasound 03/08/18 11:03 CONCLUSION: 1. Small cyst right kidney. No hydronephrosis. No perinephric fluid collections. Caprini VTE Risk Assessment Caprini VTE Risk Assessment: Moderate/High Risk (score >= 2) Caprini Risk Assessment Model: Point Value = 1 Point Value = 2 Point Value = 3 Point Value = 5 Age 41-60 Minor surgery BMI > 25 kg/m2 Swollen legs Varicose veins or History of unexplained or recurrent spontaneous Oral contraceptives or hormone replacement Sepsis (< 1 month) Serious lung disease, including pneumonia (< 1 month) Abnormal pulmonary function Acute myocardial infarction Congestive heart failure (< 1 month) History of inflammatory bowel disease Medical patient at bed rest Age 61-74 Arthroscopic surgery Major open surgery (> 45 min) Laparoscopic surgery (> 45 min) Malignancy Confined to bed (> 72 hours) Immobilizing plaster cast Central venous access Age >= 75 History of VTE Family history of VTE Factor V Leiden Prothrombin [id number] Lupus anticoagulant Anticardiolipin antibodies Elevated serum homocysteine Heparin-induced thrombocytopenia Other congenital or acquired thrombophilia Stroke (< 1 month) Elective arthroplasty Hip, pelvis, or leg fracture Acute spinal cord injury (< 1 month) Prophylaxis Regimen: SCD's ordered. Total Risk Factor Score Risk Level Prophylaxis Regimen 0-1 Low Early ambulation 2 Moderate Order ONE of the following: *Sequential Compression Device (SCD) *Heparin 5000 units SQ BID 3-4 Higher Order ONE of the following medications: *Heparin 5000 units SQ TID *Enoxaparin/Lovenox 40 mg SQ daily (WT < 150 kg, CrCl > 30 mL/min) *Enoxaparin/Lovenox 30 mg SQ daily (WT < 150 kg, CrCl > 10-29 mL/min) *Enoxaparin/Lovenox 30 mg SQ BID (WT < 150 kg, CrCl > 30 mL/min) AND/OR *Sequential Compression Device (SCD) 5 or more Highest Order ONE of the following medications: *Heparin 5000 units SQ TID (Preferred with Epidurals) *Enoxaparin/Lovenox 40 mg SQ daily (WT < 150 kg, CrCl > 30 mL/min) *Enoxaparin/Lovenox 30 mg SQ daily (WT < 150 kg, CrCl > 10-29 mL/min) *Enoxaparin/Lovenox 30 mg SQ BID (WT < 150 kg, CrCl > 30 mL/min) AND *Sequential Compression Device (SCD) Assessment and Plan - Assessment (1) Right flank pain Code(s): R10.9 - Unspecified abdominal pain Status: Acute (2) Stone, kidney Code(s): N20.0 - Calculus of kidney Status: Acute (3) Acute UTI Code(s): N39.0 - Urinary tract infection, site not specified Status: Acute (4) Hx of myocardial infarction Code(s): I25.2 - Old myocardial infarction Status: Acute (5) Osteoarthritis Code(s): M19.90 - Unspecified osteoarthritis, unspecified site Status: Acute (6) Anxiety Code(s): F41.9 - Anxiety disorder, unspecified Status: Acute (7) COPD (chronic obstructive pulmonary disease) Code(s): J44.9 - Chronic obstructive pulmonary disease, unspecified Status: Acute (8) GERD (gastroesophageal reflux disease) Code(s): K21.9 - Gastro-esophageal reflux disease without esophagitis Status: Acute (9) Hyperlipidemia Code(s): E78.5 - Hyperlipidemia, unspecified Status: Acute (10) Chronic systolic heart failure Code(s): I50.22 - Chronic systolic (congestive) heart failure Status: Acute (11) Coronary artery disease Code(s): I25.10 - Atherosclerotic heart disease of [place] coronary artery without angina pectoris Status: Acute (12) Type 2 diabetes mellitus with diabetic neuropathy Code(s): E11.40 - Type 2 diabetes mellitus with diabetic neuropathy, unspecified Status: Acute (13) Hypothyroid Code(s): E03.9 - Hypothyroidism, unspecified Status: Acute (14) Hypertension Code(s): I10 - Essential (primary) hypertension Status: Acute (15) History of intravascular stent placement Code(s): Z95.828 - Presence of other vascular implants and grafts Status: Acute - Plan Plan: I have ordered a CT scan of the abdomen/pelvis to compare with the one she had 4 days ago to see if her stone is passed. If she still has a stone I will consider asking a urologist to see her. A cath urine specimen was ordered in the ED to collect a urine for culture. She will be maintained on antibiotic therapy and was given Levaquin in the ED. I will give her some IV fluids of normal saline but at a low rate in view of her history of chronic systolic heart failure. SCDs and EVELYN hose will be used for DVT prophylaxis. I will give her hydrocodone/APAP 10/325 to use every 4 hours as needed flank pain. We will recheck her CBC and BMP in the morning. She will be on a diabetic diet and diabetic oral agents for her diabetes control. She will be maintained on her other regular medications as well. Code Status: Full code
[2018-03-08] MEDS: glipiZIDE 5 MG Tablet PO SCH (17:39)
[2018-03-08] MEDS: Carvedilol 6.25 MG Tablet PO SCH (20:40)
[2018-03-08] MEDS ORDERED: Amitriptyline 25 MG Tablet PO SCH (21:00)
[2018-03-08] MEDS ORDERED: Lisinopril 20 MG Tablet PO SCH (21:00)
--- NOTE | 2018-03-08 21:07 | CT ---
EXAM DATE: 03/08/2018 7:15 PM EDT AGE/SEX: 62 years / Female INDICATIONS: Right flank pain. CLINICAL DATA: This is the patient's initial encounter. Patient reports that signs and symptoms have been present for 4 - 6 days and indicates a pain score of 7/10. MEDICAL/SURGICAL HISTORY: Diabetes. Myocardial infarction. Renal calculi. Hypertension. Cho lecystectomy. Vascular Stent placement. RADIATION DOSE: 19.47 CTDI (mGy) COMPARISON: [facility], CT ABDOMEN & PELVIS W/O CONTRAST, 03/04/2018. . TECHNIQUE: Multiple contiguous axial images were obtained through the abdomen. Images were obtained using multiple row detector helical technique. Using automated exposure control and adjustment of the mA and/or kV according to patient size, radiation dose was kept as low as reasonably achievable to o btain optimal diagnostic quality images. DICOM format image data is available electronically for rev iew and comparison. FINDINGS: Lower Lungs: Mild bibasilar atelectasis. No evidence of effusion. Liver: The liver has a homogeneous density without space-occupying lesion for noncontrast technique. There is no dilation of the biliary tree. Cholecystectomy Spleen: Homogeneous density without enlargement. Pancreas: Unremarkable without mass or calcification. Kidneys: Stable appearance to the kidneys when compared to 03/04/2018. 1.3 cm exophytic mass mid pole right kidney without calcification. No calcified stones in the collecting system and no evidence of hydronephrosis. No calcifications along the course of either ureter. Adrenal Glands: Unremarkable. Aorta: The aorta and proximal iliac vessels are grossly unremarkable without aneurysmal dilation. Bowel/Mesentery: Mild prominence of small bowel loops measuring up to 3 cm in size. No air-fluid lev els. A few scattered diverticula in the sigmoid colon without radiographic evidence of diverticulitis . Abdominal Wall: Intact. Retroperitoneum: No evidence of adenopathy in the retrocrural, para-aortic, or deep pelvic regions. Bladder: No calcifications within the lumen. Contours are smooth. Reproductive Organs: No abnormal masses or calcifications seen. Inguinal: The inguinal region is unremarkable without evidence of adenopathy. Bony Structures: Advanced degenerative changes in the posterior elements of the lower lumbar spine. Heterotopic ossification in the soft tissues posterior to the left femoral neck measuring 9 mm. Lipom a of the left obturator muscles. CONCLUSION: 1. No calcified stones in the collecting system of either kidney or either ureter. 2. Stable 1.3 cm exophytic mass mid pole right kidney. Electronically signed by: Jamaal Zamora MD 03/08/2018 9:05 PM EDT
[2018-03-08 21:49] LABS: Bilirubin,Urine Negative (Negative); Clarity,Urine Clear (Clear); Color,Urine Yellow (Yellw/Straw); Glucose,Urine (UA) Negative (Negative); Leukocyte Esterase,Urine Negative (Negative); Nitrite,Urine Negative (Negative); PH,Urine 5.5 (5.0-8.5); Specific Gravity,Urine Less/Equal 1.005 (1.002-1.035); Urobilinogen,Urine 0.2 mg/dL (Less than 2)
[2018-03-08 21:53] LABS: RBC,Urine 0-3 /hpf (0-3); Squamous Epithelial Cell,Urine 0-5 /hpf (0-5); WBC,Urine 0-5 /hpf (0-5)
[2018-03-09] MEDS ORDERED: Levothyroxine 100 MCG Tablet PO SCH (06:00)
[2018-03-09] MEDS ORDERED: Levothyroxine 75 MCG Tablet PO SCH (06:00)
[2018-03-09 06:40] LABS: Potassium 4.1 meq/L (3.5-5.1)
[2018-03-09 06:42] LABS: Baso % (Auto) 0.5 % (0.0-2.0); Eos # (Auto) 0.1 th/mm3 (0.0-0.4); Eos % (Auto) 1.9 % (0.0-4.0); Hematocrit 32.9 % (35.0-46.0); Lymph # (Auto) 1.8 th/mm3 (1.0-4.8); Lymph % (Auto) 24.4 % (9.0-44.0); Mean Corpuscular HGB Conc 35.4 % (32.0-36.0); Mean Corpuscular Hemoglobin 32.8 pg (27.0-34.0); Mean Corpuscular Volume 92.5 fL (80.0-100.0); Mean Platelet Volume 9.6 fL (7.0-11.0); Mono # (Auto) 0.4 th/mm3 (0.0-0.9); Mono % (Auto) 5.7 % (0.0-8.0); Neut # (Auto) 4.9 th/mm3 (1.8-7.7); Neut % (Auto) 67.5 % (16.0-70.0); Red Blood Count 3.56 mil/mm3 (4.00-5.30); Red Cell Distribution Width 12.7 % (11.6-17.2); White Blood Count 7.2 th/mm3 (4.0-11.0)
[2018-03-09 06:43] LABS: Calcium 8.5 mg/dL (8.5-10.1)
[2018-03-09 06:44] LABS: Carbon Dioxide 22.7 meq/L (21.0-32.0); Hemoglobin 11.7 gm/dL (11.6-15.3); Platelet Count 167 th/mm3 (150-450)
--- NOTE | 2018-03-09 07:26 | P.PN ---
Subjective Interval history: Patient has some slight discomfort still in her right lower abdomen and right lower flank that radiates into her right buttocks area. It is improved from yesterday. Her CT scan of the abdomen and pelvis last evening showed no further right ureteral stone and no urinary obstruction. A repeat UA was negative. She mentions she has had some lower back problems in the past that will radiate into her buttocks area. She has no abdominal pain, nausea, fever, chills. Physical Exam Vital signs: Vital Signs 03/08/18 10:11 03/08/18 10:13 03/08/18 10:53 Temperature 98.4 F Pulse Rate 97 H 68 Respiratory Rate 16 15 Blood Pressure 163/80 H 165/76 H Pulse Oximetry 97 98 97 03/08/18 17:23 03/08/18 20:00 03/09/18 00:00 Temperature 97.1 F L 96.4 F L 97.2 F L Pulse Rate 89 80 84 Respiratory Rate 18 16 16 Blood Pressure 183/81 H 140/76 132/70 Pulse Oximetry 98 96 95 Intake & Output 03/08/18 03/09/18 03/09/18 18:59 06:59 18:59 Intake Total 2150 / 2150 480 / 480 Balance 2150 / 2150 480 / 480 Weight 85.9 kg 85.9 kg Intake: IV 2150 / 2150 Levaquin 750 mg Premix Inj 150 150 / 150 ML @ 100 mls/hr IV.SIG ONCE ONE Rx#:[id number] NS Inj 1,000 ML @ Wide Open IV. 1999 / 1999 SIG BOLUS ANNIE Rx#:[id number] Oral 480 / 480 Other: # Voids 3 Narrative: This is a pleasant white female in no distress. HEENT: Pupils equal, EOMs intact, mouth without lesions Neck: No JVD, neck is supple Heart: Regular rate and rhythm without murmurs or gallops Lungs: Clear to auscultation Abdomen: Soft, nontender, no masses Back: She has some mild tenderness over the muscles in the right lower lumbar region down into the right buttocks region. She has slight discomfort in the same area with flexion of her back. Extremities: No edema, no calf tenderness Neuro: Alert, oriented, normal motor exam, sensation intact Results - Labs CBC & Chem 7: 03/09/18 06:10 03/09/18 06:10 Laboratory Results - last 24 hr 03/08/18 03/08/18 03/08/18 11:16 11:16 12:01 CBC w Diff Auto diff final WBC 9.2 RBC 4.30 Hgb 13.4 Hct 39.6 MCV 92.3 MCH 31.2 MCHC 33.8 RDW 12.6 Plt Count 243 MPV 9.6 Neut % (Auto) 73.1 H Lymph % (Auto) 19.3 [place] % (Auto) 5.1 Eos % (Auto) 1.9 Baso % (Auto) 0.6 Neut # (Auto) 6.6 Lymph # (Auto) 1.8 [place] # (Auto) 0.5 Eos # (Auto) 0.2 Baso # (Auto) 0.1 WBC Differential . Differential Comment . Sodium 134 L Potassium 4.3 Chloride 103 Carbon Dioxide 22.1 Anion Gap 9 BUN 13 Creatinine 1.10 H Estimated GFR 50 L Random Glucose 136 H Calcium 9.0 Total Bilirubin 0.5 AST 14 L ALT 25 Alkaline Phosphatase 83 Total Protein 7.3 Albumin 3.9 Ur Collection Type Clean catch Urine Color Yellow Urine Clarity Slightly cloudy Urine pH 5.[address] 1.025 Urine Protein Negative Urine Glucose (UA) Negative Urine Ketones Negative Urine Occult Blood Negative Urine Nitrate Negative Urine Bilirubin Negative Urine Urobilinogen 0.2 Ur Leukocyte Esterase Small H Urine RBC Urine WBC 9-20 H Urine WBC Clumps Few H Ur Squamous Epith Cells Greater than 10 H Amorphous Sediment Moderate H Urine Bacteria Few H Hyaline Casts 4-10 H Urine Mucus Few H Micro UA Comment Culture indicated Ur Microscopic Review Microscopic reviewed Urine Culture Comments Culture indicated Urine Collection Time 1201 03/08/18 03/09/18 03/09/18 21:43 06:10 06:10 CBC w Diff Auto diff final WBC 7.2 RBC 3.56 L Hgb 11.7 Hct 32.9 L MCV 92.5 MCH 32.8 MCHC 35.4 RDW 12.7 Plt Count 167 D MPV 9.6 Neut % (Auto) 67.5 Lymph % (Auto) 24.4 [place] % (Auto) 5.7 Eos % (Auto) 1.9 Baso % (Auto) 0.5 Neut # (Auto) 4.9 Lymph # (Auto) 1.8 [place] # (Auto) 0.4 Eos # (Auto) 0.1 Baso # (Auto) 0.0 WBC Differential . Differential Comment . Sodium 139 Potassium 4.1 Chloride 107 Carbon Dioxide 22.7 Anion Gap 9 BUN 10 Creatinine 0.84 Estimated GFR 68 L Random Glucose 97 Calcium 8.5 Total Bilirubin AST ALT Alkaline Phosphatase Total Protein Albumin Ur Collection Type Urine Color Yellow Urine Clarity Clear Urine pH 5.[address] Less/equal 1.005 Urine Protein Negative Urine Glucose (UA) Negative Urine Ketones Negative Urine Occult Blood Negative Urine Nitrate Negative Urine Bilirubin Negative Urine Urobilinogen 0.2 Ur Leukocyte Esterase Negative Urine RBC 0-3 Urine WBC 0-5 Urine WBC Clumps Ur Squamous Epith Cells 0-5 Amorphous Sediment Urine Bacteria Hyaline Casts Urine Mucus Micro UA Comment Culture not ind Ur Microscopic Review Microscopic reviewed Urine Culture Comments Culture not ind Urine Collection Time - Imaging Impressions Abdomen/Bladder Ultrasound 03/08/18 11:03 CONCLUSION: 1. Small cyst right kidney. No hydronephrosis. No perinephric fluid collections. Abdomen/Pelvis CT 03/08/18 13:15 CONCLUSION: 1. No calcified stones in the collecting system of either kidney or either ureter. 2. Stable 1.3 cm exophytic mass mid pole right kidney. Assessment and Plan - Assessment (1) Low back pain radiating to right leg Code(s): M54.5 - Low back pain Status: Acute (2) Right flank pain Code(s): R10.9 - Unspecified abdominal pain Status: Acute (3) Right ureteral stone Code(s): N20.1 - Calculus of ureter Status: Resolved (4) Acute UTI Code(s): N39.0 - Urinary tract infection, site not specified Status: Resolved (5) Hx of myocardial infarction Code(s): I25.2 - Old myocardial infarction Status: Chronic (6) Osteoarthritis Code(s): M19.90 - Unspecified osteoarthritis, unspecified site Status: Chronic (7) Anxiety Code(s): F41.9 - Anxiety disorder, unspecified Status: Chronic (8) COPD (chronic obstructive pulmonary disease) Code(s): J44.9 - Chronic obstructive pulmonary disease, unspecified Status: Chronic (9) GERD (gastroesophageal reflux disease) Code(s): K21.9 - Gastro-esophageal reflux disease without esophagitis Status: Chronic (10) Hyperlipidemia Code(s): E78.5 - Hyperlipidemia, unspecified Status: Chronic (11) Chronic systolic heart failure Code(s): I50.22 - Chronic systolic (congestive) heart failure Status: Chronic (12) Coronary artery disease Code(s): I25.10 - Atherosclerotic heart disease of [place] coronary artery without angina pectoris Status: Chronic (13) Type 2 diabetes mellitus with diabetic neuropathy Code(s): E11.40 - Type 2 diabetes mellitus with diabetic neuropathy, unspecified Status: Chronic (14) Hypothyroid Code(s): E03.9 - Hypothyroidism, unspecified Status: Chronic (15) Hypertension Code(s): I10 - Essential (primary) hypertension Status: Chronic (16) History of intravascular stent placement Code(s): Z95.828 - Presence of other vascular implants and grafts Status: Chronic - Plan Plan: I will discharge her home today to follow-up with her primary care physician ( Dr Michael Wang). Her flank and groin pain that she came in with appears to be originating from her right lower where she also has pain that is mild in nature. This lumbar pain radiates into her right buttocks and upper leg. It is tender to palpation and slightly reproduced with flexion of her spine. Her CT scan of the abdomen and pelvis showed that the previous stone seen on the CAT scan done on 03/04/18 was no longer present. Her urine was clear indicating that the Cipro that she had been taking has been working for the UTI that she was treated for on 03/04/18. She will continue her regular home medications and finish the Cipro that she has of just a few days left of. She can use her hydrocodone that she has at home for her back pain and applied heat to her back as well.
[2018-03-09 08:19] VITALS: BP 144/87; PULSE 79; TEMP 96.7; O2SAT 97
[2018-03-09] MEDS: Carvedilol 6.25 MG Tablet PO SCH (08:35)
[2018-03-09] MEDS: glipiZIDE 5 MG Tablet PO SCH (08:35)
[2018-03-09 08:41] VITALS: RESP 18
[2018-03-09] MEDS: Ranolazine 500 MG 12HR ER Tablet PO SCH (08:46)
[2018-03-09] MEDS ORDERED: hydroCHLOROthiazide 25 MG Tablet PO SCH (09:00)
== END 2018-03-09 10:05 | disposition home or self-care (01) ==
LOC: PHEDA 09:50 → PHED 09:50 → PH3 13:59
PROVIDERS: ADMIT Family Medicine; ATTEND Family Medicine

== ENCOUNTER 2018-08-08 15:17 | Inpatient (IN) ==
--- NOTE | 2018-08-08 15:54 | CT ---
EXAM DATE: 08/08/2018 3:51 PM EST AGE/SEX: 63 years / Female INDICATIONS: Weakness and dizziness. CLINICAL DATA: This is the patient's initial encounter. Patient reports that signs and symptoms have been present for 1 day and indicates a pain score of 0/10. MEDICAL/SURGICAL HISTORY: Cardiovascular disease. Congestive heart failure. Chronic obstructive p ulmonary disease. GERD. Hypertension. Hypothyroidism. Diabetes. Osteoarthritis. Cholecystectomy. C oronary artery stent. Carpal tunnel syndrome. RADIATION DOSE: 56.75 CTDI (mGy) COMPARISON: No prior exams available for comparison. TECHNIQUE: CT of the head without contrast. Using automated exposure control and adjustment of the mA and/or kV according to patient size, radiation dose was kept as low as reasonably achievable to ob tain optimal diagnostic quality images. DICOM format image data is available electronically for revi ew and comparison. FINDINGS: Cerebrum: The ventricles are normal for age. No evidence of midline shift, mass lesion, hemorrhage or acute infarction. No extraaxial fluid collections are seen. Posterior Fossa: The cerebellum and brainstem are intact. The 4th ventricle is midline. The cerebe llopontine angle is unremarkable. Extracranial: The visualized portion of the orbits is intact. Skull: The calvaria is intact. No evidence of skull fracture. CONCLUSION: 1. Negative for acute process . . Electronically signed by: Benigno Aguiar MD Board Certified Radiologist 08/08/2018 3:53 PM EST
[2018-08-08 16:10] LABS: Baso # (Auto) 0.1 th/mm3 (0.0-0.2); Baso % (Auto) 1.3 % (0.0-2.0); Eos # (Auto) 0.2 th/mm3 (0.0-0.4); Eos % (Auto) 3.1 % (0.0-4.0); Hematocrit 35.4 % (35.0-46.0); Hemoglobin 11.7 gm/dL (11.6-15.3); Lymph # (Auto) 1.7 th/mm3 (1.0-4.8); Lymph % (Auto) 21.3 % (9.0-44.0); Mean Corpuscular HGB Conc 32.9 % (32.0-36.0); Mean Corpuscular Hemoglobin 29.6 pg (27.0-34.0); Mean Corpuscular Volume 89.9 fL (80.0-100.0); Mono # (Auto) 0.3 th/mm3 (0.0-0.9); Mono % (Auto) 3.6 % (0.0-8.0); Neut # (Auto) 5.7 th/mm3 (1.8-7.7); Neut % (Auto) 70.7 % (16.0-70.0); Platelet Count 205 th/mm3 (150-450); Red Blood Count 3.94 mil/mm3 (4.00-5.30); Red Cell Distribution Width 13.3 % (11.6-17.2)
--- NOTE | 2018-08-08 16:10 | ED ---
HPI General Chief complaint: Weakness Stated complaint: weakness Time Seen by Provider: 08/08/18 15:27 History of Present Illness HPI narrative: This is a 63-year-old female with history of coronary disease, diabetes mellitus, congestive heart failure, hypertension, hypothyroidism, presents after having an episode of unresponsiveness. Patient states she was on her porch speaking with her neighbor when she reportedly became unresponsive. Patient states that she does not recall this episode. She does recall coming to and thinking that maybe she had low blood sugar. She went to the kitchen and drank some juice. When paramedics arrived, they found her blood sugar to be 189. The patient states that she felt funny and slowly regained her normal sensation. She reports that she had a similar episode like this previously when she was at work at [employer]. She reports there is not been a formal diagnosis to explain what happened previously. Related Data Home Medications Medication Instructions Recorded Confirmed alprazolam 0.25 mg PO BID PRN 03/04/18 08/08/18 aspirin [Aspirin Low Dose] 81 mg PO HS 03/04/18 08/08/18 atorvastatin 20 mg PO HS 03/04/18 08/08/18 carvedilol 6.25 mg PO BID 03/04/18 08/08/18 glipizide 5 mg PO BID 03/04/18 08/08/18 hydrocodone-acetaminophen 1 tab PO Q6H PRN 03/04/18 08/08/18 levothyroxine 175 mcg PO DAILY 03/04/18 08/08/18 lisinopril 40 mg PO HS 03/04/18 08/08/18 metformin 1,000 mg PO BID 03/04/18 08/08/18 ranolazine [Ranexa] 1,000 mg PO Q12H 03/04/18 08/08/18 ticagrelor [Brilinta] 90 mg/dose PO BID 03/08/18 08/08/18 Previous Rx's Medication Instructions Recorded furosemide 40 mg PO DAILY #7 tab 05/23/18 sulfamethoxazole-trimethoprim 1 tab PO Q12H #14 tab 07/01/18 [Bactrim DS] tramadol 50 mg PO Q4-6H PRN #10 tab 07/01/18 Allergies Allergy/AdvReac Type Severity Reaction Status Date / Time clindamycin Allergy Severe RASH Verified 07/01/18 02:20 penicillin G Allergy Severe "FACE Verified 07/01/18 02:20 SWELLS UP" Review of Systems ROS: all other systems reviewed are negative Constitutional Reports system reviewed and no additional complaints, except as docu Eyes Denies blurry vision and Denies diplopia ENT Reports system reviewed and no additional complaints, except as docu and Denies neck pain Cardiovascular Reports chest pain, Denies palpitations and Denies dyspnea Respiratory Denies chest congestion, Denies cough and Denies dyspnea Gastrointestinal Denies abdominal pain, Denies nausea and Denies vomiting Genitourinary Reports system reviewed and no additional complaints, except as docu Musculoskeletal Reports system reviewed and no additional complaints, except as docu Neurologic Denies dizziness, Denies headache(s), Denies focal weakness, Denies seizure- like activity and Reports other (Episode of unresponsiveness. Report was that she did not pass out. She just did not answer questions and had a blank stare.) [facility] Medical History Medical History Hx of myocardial infarction (Chronic) Osteoarthritis (Chronic) Anxiety (Chronic) COPD (chronic obstructive pulmonary disease) (Chronic) GERD (gastroesophageal reflux disease) (Chronic) Hyperlipidemia (Chronic) Chronic systolic heart failure (Chronic) Coronary artery disease (Chronic) Type 2 diabetes mellitus with diabetic neuropathy (Chronic) Hypothyroid (Chronic) Hypertension (Chronic) Kidney stone (Acute) CHF (congestive heart failure) (Acute) High cholesterol (Acute) Thyroid disease (Acute) Surgical History Surgical History History of intravascular stent placement (Chronic) History of cholecystectomy (Acute) Hx laparoscopic cholecystectomy (Acute) Hx of carpal tunnel repair (Acute) Hx of heart artery stent (Acute) Social History Social History Substance History: No History of Abuse Second Hand Smoke Exposure: Yes Smoking Status: Former smoker Tobacco Type: Cigarettes How Often Do You Have a Drink Containing Alcohol: Never Recent Travel in [facility] within the Last 8 Weeks: No Recent Out of Country Travel within the Last 8 Weeks: No Exam Narrative Exam Narrative: GENERAL: Well-developed well-nourished female in no acute respiratory distress. SKIN: Focused skin assessment warm/dry. HEAD: Atraumatic. Normocephalic. EYES: Pupils equal and round. No scleral icterus. No injection or drainage. ENT: No nasal bleeding or discharge. Mucous membranes pink and moist. NECK: Trachea midline. Supple. No obvious JVD. CARDIOVASCULAR: Regular rate and rhythm. No murmur appreciated. RESPIRATORY: No accessory muscle use. Clear to auscultation. Breath sounds equal bilaterally. GASTROINTESTINAL: Abdomen soft, non-tender, nondistended. No pulsatile masses. MUSCULOSKELETAL: No obvious deformities. No clubbing. No cyanosis. No edema. NEUROLOGICAL: Awake and alert. No obvious cranial nerve deficits. Motor grossly within normal limits. Normal speech. Course Initial Documented Vital Signs Temperature 98.3 F 08/08/18 15:20 Pulse Rate 84 08/08/18 15:20 Respiratory Rate 16 08/08/18 15:20 Blood Pressure 141/76 H 08/08/18 15:20 Pulse Oximetry 97 08/08/18 15:20 Last Documented Vital Signs Temperature 98.3 F 08/08/18 15:20 Pulse Rate 84 08/08/18 15:20 Respiratory Rate 16 08/08/18 15:20 Blood Pressure 141/76 H 08/08/18 15:20 Pulse Oximetry 97 08/08/18 15:20 Medical Decision Making [facility] Narrative Medical Screen Exam Complete: Yes Emergency Medical Condition: Yes Differential Diagnosis Differential Diagnosis: TIA versus atypical seizure versus syncopal episode Imaging Data Radiologist's impression: Head CT 08/08/18 15:27 CONCLUSION: 1. Negative for acute process . . ECG Data Prior ECG tracings: available for review Discharge Plan Physicians Team ED Provider: Aquiles Miranda Primary Care Provider: UNKNOWN, Rxs /Orders / Referrals /Forms Prescriptions: No Action levothyroxine 175 mcg Tablet 175 mcg PO DAILY RF: 0 carvedilol 6.25 mg Tablet 6.25 mg PO BID RF: 0 atorvastatin 20 mg Tablet 20 mg PO HS RF: 0 hydrocodone-acetaminophen 5-325 mg Tablet 1 tab PO Q6H PRN (Reason: Pain) RF: 0 alprazolam 0.25 mg Tablet 0.25 mg PO BID PRN (Reason: Anxiety) RF: 0 metformin 1,000 mg Tablet 1,000 mg PO BID RF: 0 lisinopril 40 mg Tablet 40 mg PO HS RF: 0 glipizide 5 mg Tablet 5 mg PO BID RF: 0 aspirin [Aspirin Low Dose] 81 mg Tablet,Delayed Release (Dr/Ec) 81 mg PO HS RF: 0 ranolazine [Ranexa] 1,000 mg Tablet Extended Release 12 Hr 1,000 mg PO Q12H RF: 0 ticagrelor [Brilinta] 60 mg Tablet 90 mg/dose PO BID RF: 0 furosemide 40 mg tablet 40 mg PO DAILY Qty: 7 RF: 0 tramadol 50 mg tablet 50 mg PO Q4-6H PRN (Reason: pain) Qty: 10 RF: 0 sulfamethoxazole-trimethoprim [Bactrim DS] 800-160 mg tablet 1 tab PO Q12H Qty: 14 RF: 0 Status ED Status: With Doctor
--- NOTE | 2018-08-08 16:16 | XR ---
EXAM DATE: 08/08/2018 4:13 PM EST AGE/SEX: 63 years / Female INDICATIONS: Chest pain. CLINICAL DATA: This is the patient's initial encounter. Patient reports that signs and symptoms have been present for 1 day and indicates a pain score of 4/10. MEDICAL/SURGICAL HISTORY: . Cardiovascular disease. Congestive heart failure. Chronic obstructi ve pulmonary disease. GERD. Hypertension. Hypothyroidism. Diabetes. Osteoarthritis. . Cholecystectom y. Coronary artery stent. COMPARISON: [facility], CHEST 1V SINGLE AP, 05/23/2018. . FINDINGS: A single AP view of the chest demonstrates the lungs to be symmetrically aerated without evidence of mass, infiltrate or effusion. The cardiomediastinal contours are unremarkable. Osseous structures a re intact. CONCLUSION: No acute intrathoracic disease. No significant change Electronically signed by: Dalton Jose MD Board Certified Radiologist 08/08/2018 4:15 PM EST
[2018-08-08 16:28] LABS: Bilirubin,Urine Negative (Negative); Clarity,Urine Clear (Clear); Color,Urine Yellow (Yellw/Straw); Glucose,Urine (UA) 500 mg/dL (Negative); Leukocyte Esterase,Urine Negative (Negative); Nitrite,Urine Negative (Negative); PH,Urine 5.5 (5.0-8.5); Specific Gravity,Urine 1.025 (1.002-1.035); Urobilinogen,Urine 0.2 mg/dL (Less than 2)
[2018-08-08 16:29] LABS: Chloride 106 meq/L (98-107); Potassium 4.4 meq/L (3.5-5.1); Sodium 136 meq/L (136-145)
[2018-08-08 16:33] LABS: Albumin 3.7 g/dL (3.4-5.0); Anion Gap 6 meq/L (5-15); Blood Urea Nitrogen 16 mg/dL (7-18); Glucose,Random 175 mg/dL (74-106); Magnesium 1.5 mg/dL (1.5-2.5)
[2018-08-08 16:36] LABS: Alanine Aminotransferase 16 U/L (10-53); Aspartate Aminotransferase 15 U/L (15-37); Glomerular Filtration Rate 56 mL/min (>89)
[2018-08-08 16:37] LABS: Total Protein 6.6 g/dL (6.4-8.2)
[2018-08-08 16:37] LABS: Amorphous Sediment,Urine Rare /hpf; Hyaline Casts,Urine 0-3 /lpf (0-3); Mucus,Urine Few /lpf (Occasional); Squamous Epithelial Cell,Urine 0-5 /hpf (0-5); WBC,Urine 0-5 /hpf (0-5)
[2018-08-08 16:38] LABS: Alkaline Phosphatase 83 U/L (45-117)
[2018-08-08 16:47] LABS: Creatine Kinase 49 U/L (26-192)
[2018-08-08] MEDS ORDERED: ALPRAZolam 0.25 MG Tablet PO PRN (19:02)
[2018-08-08] MEDS ORDERED: Dextrose 50% in Water 50 ML Vial IV.PUSH PRN (19:06)
[2018-08-08] MEDS ORDERED: Bisacodyl 10 MG Supp RECTAL PRN (19:09)
[2018-08-08] MEDS ORDERED: Acetaminophen 325 MG Tablet PO PRN (19:09)
--- NOTE | 2018-08-08 19:22 | P.HP ---
History of Present Illness Service: [facility] Primary Care Physician: UNKNOWN Chief Complaint: Question syncopal episode versus TIA versus seizure this a.m. History of Present Illness: This is a 63-year-old female with history of coronary disease, diabetes mellitus, systolic congestive heart failure, hypertension, hypothyroidism, presents after having an episode of unresponsiveness. Patient states she was on her porch speaking with her neighbor when she reportedly became unresponsive. Patient states that she does not recall this episode. She does recall coming to and thinking that maybe she had low blood sugar. At the time when she did come to she did not recognize her neighbor, she went to the kitchen and drank some juice. When paramedics arrived, they found her blood sugar to be 189. The patient states that she felt funny and slowly regained her normal sensation. She reports that she had a similar episode like this previously when she was at work at [employer]. She reports there is not been a formal diagnosis to explain what happened previously. Patient does have a history of coronary stent in the past 2016 patient has known chronic systolic heart failure with a dilated cardiomyopathy and anterior wall hypokinesis based on prior cardiac catheterization also has a history of reflux osteoarthritis type 2 diabetes with peripheral neuropathy and hypertension. Patient is on multiple heart medicines including blood thinner, will continue her current medications at this time. Of note I saw her in her records she was on Hydrocodone as well as tramadol for chronic pain, will hold off on the tramadol , as I am not sure if some of the effects that happened earlier today could be medication related. Will admit the patient undergo syncopal workup was TIA workup will consult neurology. Patient denies chest pain shortness of breath nausea or vomiting, headache. - Diagnosis (1) Syncope (2) TIA (transient ischemic attack) (3) Chronic systolic heart failure (4) Type 2 diabetes mellitus with diabetic neuropathy Review of Systems All other systems reviewed negative except as stated [facility] - History History Provided By: Patient, Medical Record, Technology Consultant / EMT - Medical History Medical History: Medical History (Last Reviewed 08/08/18 @ 19:19 by Sony Schafer MD) Hx of myocardial infarction (Chronic) Osteoarthritis (Chronic) Anxiety (Chronic) COPD (chronic obstructive pulmonary disease) (Chronic) GERD (gastroesophageal reflux disease) (Chronic) Hyperlipidemia (Chronic) Chronic systolic heart failure (Chronic) Coronary artery disease (Chronic) Type 2 diabetes mellitus with diabetic neuropathy (Chronic) Hypothyroid (Chronic) Hypertension (Chronic) Kidney stone (Acute) Thyroid disease CHF (congestive heart failure) High cholesterol - Surgical History Surgical History: Surgical History (Last Reviewed 08/08/18 @ 19:19 by Sony Schafer MD) History of intravascular stent placement (Chronic) History of cholecystectomy Hx laparoscopic cholecystectomy Hx of carpal tunnel repair Hx of heart artery stent - Tobacco History Second Hand Smoke Exposure: No Tobacco Use In Past 30 Days: Yes Smoking Status: Heavy tobacco smoker Tobacco Type: Cigarettes - Alcohol History How Often Do You Have a Drink Containing Alcohol: Never - Substance Use History Substance History: No History of Abuse - Travel History Recent Travel in the [place] Within the Last 8 Weeks: No Recent Travel Out of the Country Within the Last 8 Weeks: No - Immunization History Tetanus Immunization: Unsure Medications and Allergies Active Medications: Active Medications Acetaminophen (Tylenol) 650 mg PO Q4H PRN PRN Reason: Temp > 100.4 Hydrocodone Bitart/Acetaminophen ([place] 5/325) 1 tab PO Q6H PRN PRN Reason: Pain Alprazolam (Xanax) 0.25 mg PO BID PRN PRN Reason: Anxiety Aspirin (Ecotrin) 81 mg PO HS ANNIE Atorvastatin Calcium (Lipitor) 20 mg PO HS ANNIE Bisacodyl (Dulcolax Supp) 10 mg RECTAL DAILY PRN PRN Reason: SEVERE CONSITIPATION Carvedilol (Coreg) 6.25 mg PO BID ANNIE Dextrose (D50w Vial) 50 ml IV.PUSH UNSCH PRN PRN Reason: PER HYPOGLYCEMIA PROTOCOL Furosemide (Lasix) 40 mg PO DAILY ANNIE Glipizide (Glucotrol) 5 mg PO BID ANNIE Glucagon (Glucagon Inj) 1 mg OTHER PRN PRN PRN Reason: for Hypoglycemia Protocol Insulin Aspart (Novolog Insulin [place] Sugar Inj) 0 unit SQ Q6HR ANNIE; Protocol Non-Formulary Medication (Levothyroxine [Levothyroxine]) 175 mcg PO DAILY ANNIE Non-Formulary Medication (Lisinopril [Lisinopril]) 40 mg PO HS ANNIE Non-Formulary Medication (Metformin [Metformin]) 1,000 mg PO BID ANNIE Non-Formulary Medication (Ranolazine [Ranexa]) 1,000 mg PO Q12H ANNIE Ondansetron HCl (Zofran Inj) 4 mg IV.PUSH Q6H PRN PRN Reason: NAUSEA OR VOMITING Sodium Chloride (Ns Flush) 2 ml IV.FLUSH PRN PRN PRN Reason: FLUSH AFTER USING IV ACCESS Sodium Chloride (Ns Flush) 2 ml IV.FLUSH BID ANNIE Sodium Chloride (Ns Flush) 2 ml IV.FLUSH PRN PRN PRN Reason: FLUSH AFTER USING IV ACCESS Ticagrelor (Brilinta) mg PO BID [facility] Allergies Allergy/AdvReac Type Severity Reaction Status Date / Time clindamycin Allergy Severe RASH Verified 07/01/18 02:20 penicillin G Allergy Severe "FACE Verified 07/01/18 02:20 SWELLS UP" Home Medications Medication Instructions Recorded Confirmed Type alprazolam 0.25 mg PO BID PRN 03/04/18 08/08/18 History aspirin [Aspirin Low Dose] 81 mg PO HS 03/04/18 08/08/18 History atorvastatin 20 mg PO HS 03/04/18 08/08/18 History carvedilol 6.25 mg PO BID 03/04/18 08/08/18 History glipizide 5 mg PO BID 03/04/18 08/08/18 History hydrocodone-acetaminophen 1 tab PO Q6H PRN 03/04/18 08/08/18 History levothyroxine 175 mcg PO DAILY 03/04/18 08/08/18 History lisinopril 40 mg PO HS 03/04/18 08/08/18 History metformin 1,000 mg PO BID 03/04/18 08/08/18 History ranolazine [Ranexa] 1,000 mg PO Q12H 03/04/18 08/08/18 History ticagrelor [Brilinta] 90 mg/dose PO BID 03/08/18 08/08/18 History Exam Vital signs: Vital Signs 08/08/18 15:20 08/08/18 16:23 08/08/18 17:05 Temperature 98.3 F Pulse Rate 84 84 84 Respiratory Rate 16 18 16 Blood Pressure 141/76 H 151/70 H 161/77 H Pulse Oximetry 97 96 96 08/08/18 18:15 Temperature Pulse Rate 84 Respiratory Rate 16 Blood Pressure 170/85 H Pulse Oximetry 96 Intake & Output 08/08/18 08/08/18 08/09/18 06:59 18:59 06:59 Weight 81.647 kg Narrative: GENERAL: SKIN: Warm and dry. HEAD: Atraumatic. Normocephalic. EYES: Pupils equal and round. No scleral icterus. No injection or drainage. ENT: No nasal bleeding or discharge. Mucous membranes pink and moist. NECK: Trachea midline. No JVD. CARDIOVASCULAR: Regular rate and rhythm. RESPIRATORY: No accessory muscle use. Clear to auscultation. Breath sounds equal bilaterally. GASTROINTESTINAL: Abdomen soft, non-tender, nondistended. Hepatic and splenic margins not palpable. MUSCULOSKELETAL: Extremities without clubbing, cyanosis, or edema. No obvious deformities. NEUROLOGICAL: Awake and alert. No obvious cranial nerve deficits. Motor grossly within normal limits. Five out of 5 muscle strength in the arms and legs. Normal speech. PSYCHIATRIC: Appropriate mood and affect; insight and judgment normal. Results - Labs CBC & Chem 7: 08/08/18 15:55 08/08/18 15:55 Labs: Laboratory Results - last 24 hr 08/08/18 08/08/18 08/08/18 15:55 15:55 16:05 CBC w Diff Auto diff final WBC 8.0 RBC 3.94 L Hgb 11.7 Hct 35.4 MCV 89.9 MCH 29.6 MCHC 32.9 RDW 13.3 Plt Count 205 MPV 9.0 Neut % (Auto) 70.7 H Lymph % (Auto) 21.3 [place] % (Auto) 3.6 Eos % (Auto) 3.1 Baso % (Auto) 1.3 Neut # (Auto) 5.7 Lymph # (Auto) 1.7 [place] # (Auto) 0.3 Eos # (Auto) 0.2 Baso # (Auto) 0.1 WBC Differential . Differential Comment . Sodium 136 Potassium 4.4 Chloride 106 Carbon Dioxide 24.0 Anion Gap 6 BUN 16 Creatinine 1.00 Estimated GFR 56 L Random Glucose 175 H Calcium 9.0 Magnesium 1.5 Total Bilirubin 0.4 AST 15 ALT 16 Alkaline Phosphatase 83 Total Creatine Kinase 49 Troponin I Less than 0.02 L Total Protein 6.6 Albumin 3.7 Urine Color Yellow Urine Clarity Clear Urine pH 5.5 Ur Specific [place] 1.025 Urine Protein Negative Urine Glucose (UA) 500 H Urine Ketones Negative Urine Occult Blood Negative Urine Nitrate Negative Urine Bilirubin Negative Urine Urobilinogen 0.2 Ur Leukocyte Esterase Negative Urine WBC 0-5 Ur Squamous Epith Cells 0-5 Amorphous Sediment Rare H Hyaline Casts 0-3 Urine Mucus Few H Micro UA Comment Cath-culture not ind Ur Microscopic Review Microscopic reviewed Urine Culture Comments Cath-cult not ind - Imaging Impressions Chest X-Ray 08/08/18 15:27 CONCLUSION: No acute intrathoracic disease. No significant change Head CT 08/08/18 15:27 CONCLUSION: 1. Negative for acute process . . Caprini VTE Risk Assessment Caprini VTE Risk Assessment: Moderate/High Risk (score >= 2) Caprini Risk Assessment Model: Point Value = 1 Point Value = 2 Point Value = 3 Point Value = 5 Age 41-60 Minor surgery BMI > 25 kg/m2 Swollen legs Varicose veins or History of unexplained or recurrent spontaneous Oral contraceptives or hormone replacement Sepsis (< 1 month) Serious lung disease, including pneumonia (< 1 month) Abnormal pulmonary function Acute myocardial infarction Congestive heart failure (< 1 month) History of inflammatory bowel disease Medical patient at bed rest Age 61-74 Arthroscopic surgery Major open surgery (> 45 min) Laparoscopic surgery (> 45 min) Malignancy Confined to bed (> 72 hours) Immobilizing plaster cast Central venous access Age >= 75 History of VTE Family history of VTE Factor V Leiden Prothrombin [id number] Lupus anticoagulant Anticardiolipin antibodies Elevated serum homocysteine Heparin-induced thrombocytopenia Other congenital or acquired thrombophilia Stroke (< 1 month) Elective arthroplasty Hip, pelvis, or leg fracture Acute spinal cord injury (< 1 month) Prophylaxis Regimen: Total Risk Factor Score Risk Level Prophylaxis Regimen 0-1 Low Early ambulation 2 Moderate Order ONE of the following: *Sequential Compression Device (SCD) *Heparin 5000 units SQ BID 3-4 Higher Order ONE of the following medications: *Heparin 5000 units SQ TID *Enoxaparin/Lovenox 40 mg SQ daily (WT < 150 kg, CrCl > 30 mL/min) *Enoxaparin/Lovenox 30 mg SQ daily (WT < 150 kg, CrCl > 10-29 mL/min) *Enoxaparin/Lovenox 30 mg SQ BID (WT < 150 kg, CrCl > 30 mL/min) AND/OR *Sequential Compression Device (SCD) 5 or more Highest Order ONE of the following medications: *Heparin 5000 units SQ TID (Preferred with Epidurals) *Enoxaparin/Lovenox 40 mg SQ daily (WT < 150 kg, CrCl > 30 mL/min) *Enoxaparin/Lovenox 30 mg SQ daily (WT < 150 kg, CrCl > 10-29 mL/min) *Enoxaparin/Lovenox 30 mg SQ BID (WT < 150 kg, CrCl > 30 mL/min) AND *Sequential Compression Device (SCD) Assessment and Plan - Assessment (1) Syncope Code(s): R55 - Syncope and collapse Status: Acute Plan: Will place patient on ice cream freezer assistant obtain carotid ultrasound 2D echo will be ordered, MRI brain and neurology consult (2) TIA (transient ischemic attack) Code(s): G45.9 - Transient cerebral ischemic attack, unspecified Status: Acute Plan: Workup will include MRI of the brain carotid ultrasound 2D echo there was a question this possibly could have been a seizure we will add an EEG as well (3) Chronic systolic heart failure Code(s): I50.22 - Chronic systolic (congestive) heart failure Status: Chronic Plan: Continue patient's current medications could not find any recent 2D echo we will put that in for now (4) Type 2 diabetes mellitus with diabetic neuropathy Code(s): E11.40 - Type 2 diabetes mellitus with diabetic neuropathy, unspecified Status: Chronic Plan: Continue home medicine for diabetes and use a sliding scale - Plan Further plan pending results of the above-mentioned tests and neurology evaluation Code Status: Full Discussed Condition With: Patient
[2018-08-08] MEDS: Carvedilol 6.25 MG Tablet PO SCH (21:39)
[2018-08-08] MEDS: Lisinopril 20 MG Tablet PO SCH (21:39)
[2018-08-08] MEDS: Ranolazine 500 MG 12HR ER Tablet PO SCH (21:39)
[2018-08-09] MEDS: Insulin NovoLOG Aspart Correctional Sugar Inj SQ SCH ×5 (00:18→23:50)
--- NOTE | 2018-08-09 01:18 | US ---
EXAM DATE: 08/09/2018 1:00 AM EST AGE/SEX: 63 years / Female INDICATIONS: Transient ischemic attack. CLINICAL DATA: This is the patient's initial encounter. Patient reports that signs and symptoms have been present for 1 day and indicates a pain score of 0/10. MEDICAL/SURGICAL HISTORY: Congestive heart failure. Chronic obstructive pulmonary disease. Ga stroesophageal reflux disease. Anxiety. Hypercholesterolemia. Myocardial infarction. Hyperlipidemia. Hypertension. Hypothyroidism. Kidney stones. Osteoarthritis. Thyroid disease. Diabetes. Cholecystec christy. Carpal tunnel syndrome. Stents. COMPARISON: No prior exams available for comparison. VELOCITY PARAMETERS: ICA/CCA Ratio: Right 1.37 , Left 0.91 ICA: Right 114 cm/sec, Left 112 cm/sec CCA: Right 84 cm/sec, Left 123 cm/sec ECA: Right 145 cm/sec, Left 135 cm/sec Vertebral: Right 43 cm/sec antegrade, Left 69 cm/sec antegrade FINDINGS: Right Carotid: Mild arteriosclerotic plaque is visualized.The waveforms are within normal limits. Left Carotid: Mild arteriosclerotic plaque is visualized. The waveforms are within normal limits. Other: None. CONCLUSION: 1. No hemodynamically significant stenosis in either carotid artery. Electronically signed by: Bright Ahuja MD Board Certified Radiologist 08/09/2018 1:16 AM EST
[2018-08-09] MEDS ORDERED: Levothyroxine 75 MCG Tablet PO SCH (06:00)
[2018-08-09] MEDS ORDERED: Levothyroxine 100 MCG Tablet PO SCH (06:00)
[2018-08-09 06:13] LABS: Baso % (Auto) 0.6 % (0.0-2.0); Eos # (Auto) 0.2 th/mm3 (0.0-0.4); Eos % (Auto) 3.7 % (0.0-4.0); Hematocrit 33.2 % (35.0-46.0); Hemoglobin 11.2 gm/dL (11.6-15.3); Lymph % (Auto) 29.4 % (9.0-44.0); Mean Corpuscular HGB Conc 33.8 % (32.0-36.0); Mean Corpuscular Hemoglobin 31.1 pg (27.0-34.0); Mean Corpuscular Volume 92.2 fL (80.0-100.0); Mean Platelet Volume 9.5 fL (7.0-11.0); Mono # (Auto) 0.4 th/mm3 (0.0-0.9); Mono % (Auto) 6.4 % (0.0-8.0); Neut # (Auto) 4.1 th/mm3 (1.8-7.7); Neut % (Auto) 59.9 % (16.0-70.0); Platelet Count 191 th/mm3 (150-450); Red Cell Distribution Width 13.4 % (11.6-17.2); White Blood Count 6.7 th/mm3 (4.0-11.0)
[2018-08-09 06:23] LABS: Potassium 3.9 meq/L (3.5-5.1)
[2018-08-09 06:31] LABS: Calcium 8.9 mg/dL (8.5-10.1); Carbon Dioxide 26.1 meq/L (21.0-32.0)
[2018-08-09 06:44] LABS: Thyroid Stimulating Hormone 0.077 uIU/mL (0.358-3.740)
[2018-08-09] MEDS: Carvedilol 6.25 MG Tablet PO SCH ×2 (08:17→20:06)
[2018-08-09] MEDS: Ranolazine 500 MG 12HR ER Tablet PO SCH ×2 (08:17→20:05)
[2018-08-09] MEDS: glipiZIDE 5 MG Tablet PO SCH ×2 (08:18→17:03)
[2018-08-09] MEDS: Furosemide 40 MG Tablet PO SCH (08:18)
--- NOTE | 2018-08-09 09:01 | MR ---
EXAM DATE: 08/09/2018 8:55 AM EST AGE/SEX: 63 years / Female INDICATIONS: . Generalized weakness. CLINICAL DATA: This is the patient's subsequent encounter. Patient reports that signs and symptoms h ave been present for 2 days and indicates a pain score of 3/10. MEDICAL/SURGICAL HISTORY: Diabetes mellitus type II. Hypertension. Chronic obstructive pulmon jose disease. TIA, GERD, CAD Cholecystectomy. Tonsillectomy. Left knee surgery COMPARISON: [facility], CT HEAD W/O CONTRAST, 08/08/2018. . TECHNIQUE: Multiplanar, multisequence examination of the brain was performed without contrast. FINDINGS: Cerebrum: Mild diffuse cerebral atrophy. The ventricles are normal for age. No evidence of midline shift, mass lesion, hemorrhage or acute infarction. No extraaxial fluid collections are seen. The p ituitary gland and suprasellar cistern are normal in configuration. White Matter: Mild diffuse periventricular and focal deep white matter T2 prolongation. Posterior Fossa: The cerebellum and brainstem are intact. The 4th ventricle is midline. The cerebel lopontine angle is unremarkable. The cerebellar tonsils are normal in position. Diffusion Imaging: No focal areas of restricted diffusion are seen. No evidence of acute infarction . Extracranial: The visualized portions of the orbits and paranasal sinuses are unremarkable. CONCLUSION: 1. Mild diffuse periventricular and deep white matter signal abnormalities. Although nonspecific, fi ndings likely reflect small vessel ischemic white matter demyelination. This is slightly more than ex pected for patient's age. 2. Otherwise, unremarkable MRI examination of the brain. Electronically signed by: Malik Biggs MD Board Certified Radiologist 08/09/2018 8:59 AM EST
[2018-08-09 10:24] LABS: Chol/HDL Ratio 2.92 Ratio; HDL Cholesterol 39.3 mg/dL (40.0-60.0)
--- NOTE | 2018-08-09 11:26 | P.PN ---
Subjective Interval history: Lab work reviewed TSH was low will hold levothyroxine tomorrow restart for ,tie ultrasound negative ,MRI brain no significant findings some degree ischemia neuro evaluation pending,2d echo pending eeg pending . Patient feels about same no further episodes. Physical Exam Vital signs: Vital Signs 08/08/18 15:20 08/08/18 16:23 08/08/18 17:05 Temperature 98.3 F Pulse Rate 84 84 84 Respiratory Rate 16 18 16 Blood Pressure 141/76 H 151/70 H 161/77 H Pulse Oximetry 97 96 96 08/08/18 18:15 08/08/18 19:05 08/08/18 20:00 Temperature Pulse Rate 84 86 88 Respiratory Rate 16 16 Blood Pressure 170/85 H 168/81 H Pulse Oximetry 96 96 08/08/18 20:15 08/08/18 21:26 08/09/18 00:00 Temperature 96.6 F L Pulse Rate 83 82 83 Respiratory Rate 16 18 Blood Pressure 163/87 H 172/84 H Pulse Oximetry 95 97 08/09/18 00:06 08/09/18 03:25 08/09/18 04:05 Temperature 97.7 F Pulse Rate 80 65 63 Respiratory Rate 18 Blood Pressure 116/57 L Pulse Oximetry 94 L 08/09/18 08:00 Temperature 98.5 F Pulse Rate 86 Respiratory Rate 20 Blood Pressure 116/69 Pulse Oximetry 96 Intake & Output 08/08/18 08/09/18 08/09/18 18:59 06:59 18:59 Intake Total 120 / 120 120 / 120 Output Total 500 / 500 Balance -380 / -380 120 / 120 Weight 81.647 kg 82 kg Intake: Oral 120 / 120 120 / 120 Output: Urine 500 / 500 Other: Date of Last Bowel Movement 08/08/18 Weight On Admission 82 kg Narrative: GENERAL: SKIN: Warm and dry. HEAD: Atraumatic. Normocephalic. EYES: Pupils equal and round. No scleral icterus. No injection or drainage. ENT: No nasal bleeding or discharge. Mucous membranes pink and moist. NECK: Trachea midline. No JVD. CARDIOVASCULAR: Regular rate and rhythm. RESPIRATORY: No accessory muscle use. Clear to auscultation. Breath sounds equal bilaterally. GASTROINTESTINAL: Abdomen soft, non-tender, nondistended. Hepatic and splenic margins not palpable. MUSCULOSKELETAL: Extremities without clubbing, cyanosis, or edema. No obvious deformities. NEUROLOGICAL: Awake and alert. No obvious cranial nerve deficits. Motor grossly within normal limits. Five out of 5 muscle strength in the arms and legs. Normal speech. PSYCHIATRIC: Appropriate mood and affect; insight and judgment normal. - Urinary Catheter Management Straight Cath placed during this visit: yes Reason for continuing: Not indwelling catheter Insertion date: 08/08/18 Insertion time: 16:05 Results - Labs CBC & Chem 7: 08/09/18 04:45 08/09/18 04:45 Laboratory Results - last 24 hr 08/08/18 08/08/18 08/08/18 15:55 15:55 16:05 CBC w Diff Auto diff final WBC 8.0 RBC 3.94 L Hgb 11.7 Hct 35.4 MCV 89.9 MCH 29.6 MCHC 32.9 RDW 13.3 Plt Count 205 MPV 9.0 Neut % (Auto) 70.7 H Lymph % (Auto) 21.3 [place] % (Auto) 3.6 Eos % (Auto) 3.1 Baso % (Auto) 1.3 Neut # (Auto) 5.7 Lymph # (Auto) 1.7 [place] # (Auto) 0.3 Eos # (Auto) 0.2 Baso # (Auto) 0.1 WBC Differential . Differential Comment . Sodium 136 Potassium 4.4 Chloride 106 Carbon Dioxide 24.0 Anion Gap 6 BUN 16 Creatinine 1.00 Estimated GFR 56 L POC Glucose Random Glucose 175 H Calcium 9.0 Magnesium 1.5 Total Bilirubin 0.4 AST 15 ALT 16 Alkaline Phosphatase 83 Total Creatine Kinase 49 Troponin I Less than 0.02 L Total Protein 6.6 Albumin 3.7 Triglycerides Cholesterol LDL Cholesterol, Calc HDL Cholesterol Cholesterol/HDL Ratio TSH Urine Color Yellow Urine Clarity Clear Urine pH 5.5 Ur Specific [place] 1.025 Urine Protein Negative Urine Glucose (UA) 500 H Urine Ketones Negative Urine Occult Blood Negative Urine Nitrate Negative Urine Bilirubin Negative Urine Urobilinogen 0.2 Ur Leukocyte Esterase Negative Urine WBC 0-5 Ur Squamous Epith Cells 0-5 Amorphous Sediment Rare H Hyaline Casts 0-3 Urine Mucus Few H Micro UA Comment Cath-culture not ind Ur Microscopic Review Microscopic reviewed Urine Culture Comments Cath-cult not ind 08/09/18 08/09/18 08/09/18 00:09 04:45 04:45 CBC w Diff Auto diff final WBC 6.7 RBC 3.60 L Hgb 11.2 L Hct 33.2 L MCV 92.2 MCH 31.1 MCHC 33.8 RDW 13.4 Plt Count 191 MPV 9.5 Neut % (Auto) 59.9 Lymph % (Auto) 29.4 [place] % (Auto) 6.4 Eos % (Auto) 3.7 Baso % (Auto) 0.6 Neut # (Auto) 4.1 Lymph # (Auto) 2.0 [place] # (Auto) 0.4 Eos # (Auto) 0.2 Baso # (Auto) 0.0 WBC Differential . Differential Comment . Sodium 140 Potassium 3.9 Chloride 106 Carbon Dioxide 26.1 Anion Gap 8 BUN 16 Creatinine 0.93 Estimated GFR 61 L POC Glucose 275 Random Glucose 132 H Calcium 8.9 Magnesium Total Bilirubin AST ALT Alkaline Phosphatase Total Creatine Kinase Troponin I Total Protein Albumin Triglycerides Cholesterol LDL Cholesterol, Calc HDL Cholesterol Cholesterol/HDL Ratio TSH Urine Color Urine Clarity Urine pH Ur Specific [place] Urine Protein Urine Glucose (UA) Urine Ketones Urine Occult Blood Urine Nitrate Urine Bilirubin Urine Urobilinogen Ur Leukocyte Esterase Urine WBC Ur Squamous Epith Cells Amorphous Sediment Hyaline Casts Urine Mucus Micro UA Comment Ur Microscopic Review Urine Culture Comments 08/09/18 08/09/18 04:45 06:23 CBC w Diff WBC RBC Hgb Hct MCV MCH MCHC RDW Plt Count MPV Neut % (Auto) Lymph % (Auto) [place] % (Auto) Eos % (Auto) Baso % (Auto) Neut # (Auto) Lymph # (Auto) [place] # (Auto) Eos # (Auto) Baso # (Auto) WBC Differential Differential Comment Sodium Potassium Chloride Carbon Dioxide Anion Gap BUN Creatinine Estimated GFR POC Glucose 126 Random Glucose Calcium Magnesium Total Bilirubin AST ALT Alkaline Phosphatase Total Creatine Kinase Troponin I Total Protein Albumin Triglycerides 159 H Cholesterol 115 L LDL Cholesterol, Calc 44 HDL Cholesterol 39.3 L Cholesterol/HDL Ratio 2.92 TSH 0.077 L Urine Color Urine Clarity Urine pH Ur Specific [place] Urine Protein Urine Glucose (UA) Urine Ketones Urine Occult Blood Urine Nitrate Urine Bilirubin Urine Urobilinogen Ur Leukocyte Esterase Urine WBC Ur Squamous Epith Cells Amorphous Sediment Hyaline Casts Urine Mucus Micro UA Comment Ur Microscopic Review Urine Culture Comments - Imaging Impressions Chest X-Ray 08/08/18 15:27 CONCLUSION: No acute intrathoracic disease. No significant change Head CT 08/08/18 15:27 CONCLUSION: 1. Negative for acute process . . Carotid Doppler Study 08/09/18 00:00 CONCLUSION: 1. No hemodynamically significant stenosis in either carotid artery. Head MRI 08/09/18 00:00 CONCLUSION: 1. Mild diffuse periventricular and deep white matter signal abnormalities. Although nonspecific, findings likely reflect small vessel ischemic white matter demyelination. This is slightly more than expected for patient's age. 2. Otherwise, unremarkable MRI examination of the brain. Assessment and Plan - Assessment (1) Syncope Code(s): R55 - Syncope and collapse Status: Acute Plan: on dye house hand carotid ultrasound negative MRI brain no significant changes eeg 2d echo pending neurology consult pending (2) TIA (transient ischemic attack) Code(s): G45.9 - Transient cerebral ischemic attack, unspecified Status: Acute Plan: Workup MRI carotid negative did have low TSH adjusted dose (3) Chronic systolic heart failure Code(s): I50.22 - Chronic systolic (congestive) heart failure Status: Chronic Plan: Continue patient's current medications could not find any recent 2D echo we will put that in for now (4) Type 2 diabetes mellitus with diabetic neuropathy Code(s): E11.40 - Type 2 diabetes mellitus with diabetic neuropathy, unspecified Status: Chronic Plan: Continue home medicine for diabetes and use a sliding scale - Plan Further plan pending results of the above-mentioned tests and neurology evaluation,will return later today if discharge will ask home health to follow up.
--- NOTE | 2018-08-09 11:28 | P.DCO ---
- Diagnosis (1) Syncope Status: Acute (2) TIA (transient ischemic attack) Status: Acute (3) Chronic systolic heart failure Status: Chronic (4) Type 2 diabetes mellitus with diabetic neuropathy Status: Chronic - Physical Therapy Order: Improve ambulation - Home Health Nursing Order: Medical education, Signs/symptoms of disease process - Case Management Consult Case Management Consult-Home Health: Yes - Certification I have seen patient Keiko Leung on 08/09/18. My clinical findings support the need for the requested home health care services because: TIA syncope for BP check and VS neuro check thyroid med was adjusted Limited ability to care for self I certify that my clinical findings support that this patient is homebound because: new TIA vs syncope Impaired cognitive ability/safety, Unsteady gait/balance
--- NOTE | 2018-08-09 14:28 | P.CONNEU ---
History of Present Illness Service: Neurology Primary Care Provider: UNKNOWN Chief Complaint: Question syncopal episode versus TIA versus seizure this a.m. History of Present Illness: 63-year-old female admitted for possible TIA evaluation. States been having a headache holocephalic nuchal for the past 4-5 days. Associated photophobia phonophobia. Throbbing sensation. Reminds her of her migraine headaches that she is to have prior to menopause. Denies any vision loss focal weakness vertigo or hemisensory symptoms. States she is having a better day today tolerating p.o. she did have nausea that subsided. Ambulating without difficulty. Denies any fever night sweats chills any temporal pain jaw claudication. Has been under moderate amount of stress. Her sister had a heart attack brother -in-law diagnosed with cancer. She lives alone has a couple friends that live locally in addition to her brother. She has 2 children one living in [place] Review of Systems All other systems reviewed negative except as stated in HPI PMFSH - History History Provided By: Patient - Medical History Medical History: Medical History (Last Reviewed 08/09/18 @ 11:58 by Caryn Villanueva) Hx of myocardial infarction (Chronic) Osteoarthritis (Chronic) Anxiety (Chronic) COPD (chronic obstructive pulmonary disease) (Chronic) GERD (gastroesophageal reflux disease) (Chronic) Hyperlipidemia (Chronic) Chronic systolic heart failure (Chronic) Coronary artery disease (Chronic) Type 2 diabetes mellitus with diabetic neuropathy (Chronic) Hypothyroid (Chronic) Hypertension (Chronic) Kidney stone (Acute) Thyroid disease CHF (congestive heart failure) High cholesterol - Surgical History Surgical History: Surgical History (Last Reviewed 08/09/18 @ 11:58 by Caryn Villanueva) History of intravascular stent placement (Chronic) History of cholecystectomy Hx laparoscopic cholecystectomy Hx of carpal tunnel repair Hx of heart artery stent - Tobacco History Second Hand Smoke Exposure: No Tobacco Use In Past 30 Days: No Smoking Status: Former smoker Tobacco Type: Cigarettes - Alcohol History How Often Do You Have a Drink Containing Alcohol: Never - Substance Use History Substance History: No History of Abuse - Travel History Recent Travel in the [place] Within the Last 8 Weeks: No Recent Travel Out of the Country Within the Last 8 Weeks: No - Immunization History Tetanus Immunization: Unsure Hx Influenza Vaccine This Season: Yes Medications and Allergies Active Medications: Active Medications Acetaminophen (Tylenol) 650 mg PO Q4H PRN PRN Reason: Temp > 100.4 Hydrocodone Bitart/Acetaminophen ([place] 5/325) 1 tab PO Q6H PRN PRN Reason: ACUTE PAIN Last Admin: 08/09/18 10:18 Dose: 1 tab Alprazolam (Xanax) 0.25 mg PO BID PRN PRN Reason: Anxiety Aspirin (Ecotrin) 81 mg PO HS [facility] Last Admin: 08/08/18 21:39 Dose: 81 mg Atorvastatin Calcium (Lipitor) 20 mg PO HS [facility] Last Admin: 08/08/18 21:39 Dose: 20 mg Bisacodyl (Dulcolax Supp) 10 mg RECTAL DAILY PRN PRN Reason: SEVERE CONSITIPATION Carvedilol (Coreg) 6.25 mg PO BID [facility] Last Admin: 08/09/18 08:17 Dose: 6.25 mg Dextrose (D50w Vial) 50 ml IV.PUSH UNSCH PRN PRN Reason: PER HYPOGLYCEMIA PROTOCOL Furosemide (Lasix) 40 mg PO DAILY [facility] Last Admin: 08/09/18 08:18 Dose: 40 mg Glipizide (Glucotrol) 5 mg PO BIDAC [facility] Last Admin: 08/09/18 08:18 Dose: 5 mg Glucagon (Glucagon Inj) 1 mg OTHER PRN PRN PRN Reason: for Hypoglycemia Protocol Insulin Aspart (Novolog Insulin Correctional Sugar Inj) 0 unit SQ Q6HR [facility]; Protocol Last Admin: 08/09/18 11:47 Dose: 3 unit Lisinopril (Prinivil) 40 mg PO HS [facility] Last Admin: 08/08/18 21:39 Dose: 40 mg Metformin [facility] ([facility] Last Admin: 08/09/18 08:17 Dose: 1,000 mg Ondansetron HCl (Zofran Inj) 4 mg IV.PUSH Q6H PRN PRN Reason: NAUSEA OR VOMITING Ranolazine (Ranexa) 1,000 mg PO Q12HR [facility] Last Admin: 08/09/18 08:17 Dose: 1,000 mg Sodium Chloride (Ns Flush) 2 ml IV.FLUSH BID [facility] Last Admin: 08/09/18 08:18 Dose: 2 ml Sodium Chloride (Ns Flush) 2 ml IV.FLUSH PRN PRN PRN Reason: FLUSH AFTER USING IV ACCESS Ticagrelor (Brilinta) 90 mg PO BID [facility] Last Admin: 08/09/18 10:20 Dose: 90 mg Allergies Allergy/AdvReac Type Severity Reaction Status Date / Time clindamycin Allergy Severe RASH Verified 07/01/18 02:20 penicillin G Allergy Severe "FACE Verified 07/01/18 02:20 SWELLS UP" Home Medications Medication Instructions Recorded Confirmed Type alprazolam 0.25 mg PO BID PRN 03/04/18 08/08/18 History aspirin [Aspirin Low Dose] 81 mg PO HS 03/04/18 08/08/18 History atorvastatin 20 mg PO HS 03/04/18 08/08/18 History carvedilol 6.25 mg PO BID 03/04/18 08/08/18 History glipizide 5 mg PO BID 03/04/18 08/08/18 History hydrocodone-acetaminophen 1 tab PO Q6H PRN 03/04/18 08/08/18 History levothyroxine 175 mcg PO DAILY 03/04/18 08/08/18 History lisinopril 40 mg PO HS 03/04/18 08/08/18 History metformin 1,000 mg PO BID 03/04/18 08/08/18 History ranolazine [Ranexa] 1,000 mg PO Q12H 03/04/18 08/08/18 History ticagrelor [Brilinta] 90 mg/dose PO BID 03/08/18 08/08/18 History Exam Vital signs: Vital Signs 08/08/18 15:20 08/08/18 16:23 08/08/18 17:05 Temperature 98.3 F Pulse Rate 84 84 84 Respiratory Rate 16 18 16 Blood Pressure 141/76 H 151/70 H 161/77 H Pulse Oximetry 97 96 96 08/08/18 18:15 08/08/18 19:05 08/08/18 20:00 Temperature Pulse Rate 84 86 88 Respiratory Rate 16 16 Blood Pressure 170/85 H 168/81 H Pulse Oximetry 96 96 08/08/18 20:15 08/08/18 21:26 08/09/18 00:00 Temperature 96.6 F L Pulse Rate 83 82 83 Respiratory Rate 16 18 Blood Pressure 163/87 H 172/84 H Pulse Oximetry 95 97 08/09/18 00:06 08/09/18 03:25 08/09/18 04:05 Temperature 97.7 F Pulse Rate 80 65 63 Respiratory Rate 18 Blood Pressure 116/57 L Pulse Oximetry 94 L 08/09/18 08:00 08/09/18 11:27 Temperature 98.5 F 98.1 F Pulse Rate 86 83 Respiratory Rate 20 16 Blood Pressure 116/69 105/59 L Pulse Oximetry 96 97 Intake & Output 08/08/18 08/09/18 08/09/18 18:59 06:59 18:59 Intake Total 120 / 120 120 / 120 Output Total 500 / 500 Balance -380 / -380 120 / 120 Weight 81.647 kg 82 kg Intake: Oral 120 / 120 120 / 120 Output: Urine 500 / 500 Other: Date of Last Bowel Movement 08/08/18 Weight On Admission 82 kg Narrative: GENERAL: in NAD, SKIN: Warm and dry. HEAD: Atraumatic. Normocephalic. EYES: Pupils equal and round. No scleral icterus. ENT: No nasal bleeding or discharge. NECK: Trachea midline. No JVD. CARDIOVASCULAR: Regular rate and rhythm. RESPIRATORY: No accessory muscle use. GASTROINTESTINAL: Abdomen soft, non-tender, nondistended. MUSCULOSKELETAL: Extremities without clubbing, cyanosis, or edema. No obvious deformities. NEUROLOGICAL: Awake and alert. No aphasia, fluent articulate, no temporal tenderness, neck supple no facial asymmetry, OU 3-2mm, eomi, VFF, No drift, Motor grossly within normal limits. Five out of 5 muscle strength in the arms and legs. Tone normal in all 4 limbs, mild dyspnea and lower extremities from neuropathy, msr 1-2+ sym, no clonus, planterflexor, PSYCHIATRIC: Appropriate mood and affect; insight and judgment normal. - Constitutional no acute distress - Routine HEENT Exam Head: Present: normocephalic Eye: Present: EOMI Results - Labs CBC & Chem 7: 08/09/18 04:45 08/09/18 04:45 Labs: Laboratory Results - last 24 hr 08/08/18 08/08/18 08/08/18 15:55 15:55 16:05 CBC w Diff Auto diff final WBC 8.0 RBC 3.94 L Hgb 11.7 Hct 35.4 MCV 89.9 MCH 29.6 MCHC 32.9 RDW 13.3 Plt Count 205 MPV 9.0 Neut % (Auto) 70.7 H Lymph % (Auto) 21.3 [place] % (Auto) 3.6 Eos % (Auto) 3.1 Baso % (Auto) 1.3 Neut # (Auto) 5.7 Lymph # (Auto) 1.7 [place] # (Auto) 0.3 Eos # (Auto) 0.2 Baso # (Auto) 0.1 WBC Differential . Differential Comment . Sodium 136 Potassium 4.4 Chloride 106 Carbon Dioxide 24.0 Anion Gap 6 BUN 16 Creatinine 1.00 Estimated GFR 56 L POC Glucose Random Glucose 175 H Calcium 9.0 Magnesium 1.5 Total Bilirubin 0.4 AST 15 ALT 16 Alkaline Phosphatase 83 Total Creatine Kinase 49 Troponin I Less than 0.02 L Total Protein 6.6 Albumin 3.7 Triglycerides Cholesterol LDL Cholesterol, Calc HDL Cholesterol Cholesterol/HDL Ratio TSH Urine Color Yellow Urine Clarity Clear Urine pH 5.5 Ur Specific [place] 1.025 Urine Protein Negative Urine Glucose (UA) 500 H Urine Ketones Negative Urine Occult Blood Negative Urine Nitrate Negative Urine Bilirubin Negative Urine Urobilinogen 0.2 Ur Leukocyte Esterase Negative Urine WBC 0-5 Ur Squamous Epith Cells 0-5 Amorphous Sediment Rare H Hyaline Casts 0-3 Urine Mucus Few H Micro UA Comment Cath-culture not ind Ur Microscopic Review Microscopic reviewed Urine Culture Comments Cath-cult not ind 08/09/18 08/09/18 08/09/18 00:09 04:45 04:45 CBC w Diff Auto diff final WBC 6.7 RBC 3.60 L Hgb 11.2 L Hct 33.2 L MCV 92.2 MCH 31.1 MCHC 33.8 RDW 13.4 Plt Count 191 MPV 9.5 Neut % (Auto) 59.9 Lymph % (Auto) 29.4 [place] % (Auto) 6.4 Eos % (Auto) 3.7 Baso % (Auto) 0.6 Neut # (Auto) 4.1 Lymph # (Auto) 2.0 [place] # (Auto) 0.4 Eos # (Auto) 0.2 Baso # (Auto) 0.0 WBC Differential . Differential Comment . Sodium 140 Potassium 3.9 Chloride 106 Carbon Dioxide 26.1 Anion Gap 8 BUN 16 Creatinine 0.93 Estimated GFR 61 L POC Glucose 275 Random Glucose 132 H Calcium 8.9 Magnesium Total Bilirubin AST ALT Alkaline Phosphatase Total Creatine Kinase Troponin I Total Protein Albumin Triglycerides Cholesterol LDL Cholesterol, Calc HDL Cholesterol Cholesterol/HDL Ratio TSH Urine Color Urine Clarity Urine pH Ur Specific [place] Urine Protein Urine Glucose (UA) Urine Ketones Urine Occult Blood Urine Nitrate Urine Bilirubin Urine Urobilinogen Ur Leukocyte Esterase Urine WBC Ur Squamous Epith Cells Amorphous Sediment Hyaline Casts Urine Mucus Micro UA Comment Ur Microscopic Review Urine Culture Comments 08/09/18 08/09/18 08/09/18 04:45 06:23 11:27 CBC w Diff WBC RBC Hgb Hct MCV MCH MCHC RDW Plt Count MPV Neut % (Auto) Lymph % (Auto) [place] % (Auto) Eos % (Auto) Baso % (Auto) Neut # (Auto) Lymph # (Auto) [place] # (Auto) Eos # (Auto) Baso # (Auto) WBC Differential Differential Comment Sodium Potassium Chloride Carbon Dioxide Anion Gap BUN Creatinine Estimated GFR POC Glucose 126 204 Random Glucose Calcium Magnesium Total Bilirubin AST ALT Alkaline Phosphatase Total Creatine Kinase Troponin I Total Protein Albumin Triglycerides 159 H Cholesterol 115 L LDL Cholesterol, Calc 44 HDL Cholesterol 39.3 L Cholesterol/HDL Ratio 2.92 TSH 0.077 L Urine Color Urine Clarity Urine pH Ur Specific [place] Urine Protein Urine Glucose (UA) Urine Ketones Urine Occult Blood Urine Nitrate Urine Bilirubin Urine Urobilinogen Ur Leukocyte Esterase Urine WBC Ur Squamous Epith Cells Amorphous Sediment Hyaline Casts Urine Mucus Micro UA Comment Ur Microscopic Review Urine Culture Comments - Imaging Impressions Chest X-Ray 08/08/18 15:27 CONCLUSION: No acute intrathoracic disease. No significant change Head CT 08/08/18 15:27 CONCLUSION: 1. Negative for acute process . . Carotid Doppler Study 08/09/18 00:00 CONCLUSION: 1. No hemodynamically significant stenosis in either carotid artery. Head MRI 08/09/18 00:00 CONCLUSION: 1. Mild diffuse periventricular and deep white matter signal abnormalities. Although nonspecific, findings likely reflect small vessel ischemic white matter demyelination. This is slightly more than expected for patient's age. 2. Otherwise, unremarkable MRI examination of the brain. Review/Management - Diagnosis (1) Migraine Code(s): G43.909 - Migraine, unspecified, not intractable, without status migrainosus Status: Acute Current Visit: Yes (2) Hyperlipidemia Code(s): E78.5 - Hyperlipidemia, unspecified Status: Chronic Current Visit: No (3) Chronic systolic heart failure Code(s): I50.22 - Chronic systolic (congestive) heart failure Status: Chronic Current Visit: No (4) Type 2 diabetes mellitus with diabetic neuropathy Code(s): E11.40 - Type 2 diabetes mellitus with diabetic neuropathy, unspecified Status: Chronic Current Visit: No - Review/Management Plan: Symptoms suggestive of recurrent migraine headaches. Worsened by recent stressors in addition to possible barometric changes Afebrile no leukocytosis. MRI brain negative for acute lesion. Carotid ultrasound no vaso-occlusive disease Recommendations Fioricet as needed IV Depakote x1 Discharge planning in a.m. she continues to do well can follow-up with us in the outpatient setting for migraine treatment
[2018-08-09] MEDS ORDERED: Butalbital/APAP/Caff 50/325/40 MG Tablet PO PRN (17:58)
--- NOTE | 2018-08-09 18:09 | MG ---
cc: Jordan Rivera MD [facility] 2-24 Anxiety, heart failure, stent, aspirin. Diffuse low-amplitude beta rhythms are noted. Recording overall is synchronous and symmetric. No hemisphere asymmetries are noted. Sweat artifact is noted. Hyperventilation is not performed. Photic stimulation is performed with some symmetric posterior harmonic driving with photic stimulation. No epileptiform or seizure activity is noted. There were no hemisphere asymmetries. IMPRESSION: Normal awake electroencephalogram. No evidence for a focal or diffuse abnormality. Jordan Rivera MD DJM/rm , 05:58 PM , 06:03 PM
[2018-08-09] MEDS ORDERED: Valproate Inj 750 MG in Sodium Chlor 0.9% Inj 100 ML IV.SIG ONE (19:00)
[2018-08-09] MEDS: Lisinopril 20 MG Tablet PO SCH (20:06)
--- NOTE | 2018-08-09 20:40 | ECG ---
Date Performed: 08/08/2018 Time Performed: 15:41:54 PTAGE: 63 years EKG: Sinus rhythm MARKED LEFT AXIS DEVIATION LEFT BUNDLE BRANCH BLOCK ABNORMAL ECG PREVIOUS TRACING : 05/23/2018 09.06 Since the previous tracing, no significant change noted DOCTOR: Bisi Brooks Interpretating Date/Time 08/09/2018 20:38:08
[2018-08-10] MEDS: Insulin NovoLOG Aspart Correctional Sugar Inj SQ SCH (06:11)
[2018-08-10] MEDS: glipiZIDE 5 MG Tablet PO SCH (08:45)
[2018-08-10] MEDS: Furosemide 40 MG Tablet PO SCH (08:45)
[2018-08-10] MEDS: Carvedilol 6.25 MG Tablet PO SCH (08:45)
[2018-08-10] MEDS: Ranolazine 500 MG 12HR ER Tablet PO SCH (08:46)
[2018-08-10 09:08] VITALS: RESP 20
--- NOTE | 2018-08-10 11:34 | P.DS ---
Date of admission: 08/08/18 19:09 Primary care physician: UNKNOWN Attending physician on discharge: Sony Schafer Anticipated date of discharge: 08/10/18 Brief History from admission: This is a 63-year-old female with history of coronary disease, diabetes mellitus, systolic congestive heart failure, hypertension, hypothyroidism, presents after having an episode of unresponsiveness. Patient states she was on her porch speaking with her neighbor when she reportedly became unresponsive. Patient states that she does not recall this episode. She does recall coming to and thinking that maybe she had low blood sugar. At the time when she did come to she did not recognize her neighbor, she went to the kitchen and drank some juice. When paramedics arrived, they found her blood sugar to be 189. The patient states that she felt funny and slowly regained her normal sensation. She reports that she had a similar episode like this previously when she was at work at [employer]. She reports there is not been a formal diagnosis to explain what happened previously. Patient does have a history of coronary stent in the past 2016 patient has known chronic systolic heart failure with a dilated cardiomyopathy and anterior wall hypokinesis based on prior cardiac catheterization also has a history of reflux osteoarthritis type 2 diabetes with peripheral neuropathy and hypertension. Patient is on multiple heart medicines including blood thinner, will continue her current medications at this time. Of note I saw her in her records she was on Hydrocodone as well as tramadol for chronic pain, will hold off on the tramadol , as I am not sure if some of the effects that happened earlier today could be medication related. Will admit the patient undergo syncopal workup was TIA workup will consult neurology. Patient denies chest pain shortness of breath nausea or vomiting, headache. Patient update on day of discharge: will need to f/u 2decho and neurology follow up DS: Diagnosis - Discharge Diagnosis (1) Ocular migraine Status: Acute (2) Type 2 diabetes mellitus with diabetic neuropathy Status: Chronic (3) Syncope Status: Acute (4) Chronic systolic heart failure Status: Chronic (5) TIA (transient ischemic attack) Status: Acute DS: Summary Hospital Course: Patient did well in hospital ,has had intermittant headache ,work up CT head negative,MRI brain negative,carotid ultrasound no significant stenosis,eeg negative PT saw patient ambulates well,monitor no abnormalities noted Neurology feels patient having occular migraines ,did try IV depakote but made patient feels bad,did try fioricet she will let me know if that helped and can call into pharmacy for her. Patient does take ,cardiac meds which may be playing part in her symptoms also has had some stress. She will be seeing cardiology as outpatient and may be changing her meds due to cost. I will have home health follow her up. Discharge today. On lab work her TSH was low i instructed her to hold one day of her levothyroxine and can follow up levels as outpatient. - Time Spent with Patient Total time spent providing and/or coordinating discharge services: Greater than 30 minutes - Quality: VTE Deep Vein Thrombosis/Pulmonary Embolism Present on Admission: No Exam Vital signs: Vital Signs 08/09/18 11:27 08/09/18 12:00 08/09/18 16:00 Temperature 98.1 F 96.5 F L Pulse Rate 83 85 86 Respiratory Rate 16 20 Blood Pressure 105/59 L 122/73 Pulse Oximetry 97 99 08/09/18 20:00 08/09/18 20:02 08/10/18 00:00 Temperature 97.4 F L 96.9 F L Pulse Rate 88 85 84 Respiratory Rate 18 18 Blood Pressure 141/71 H 145/64 H Pulse Oximetry 96 96 08/10/18 00:03 08/10/18 03:22 08/10/18 04:01 Temperature 97.8 F Pulse Rate 88 82 79 Respiratory Rate 18 Blood Pressure 168/67 H Pulse Oximetry 98 08/10/18 08:00 Temperature 97.3 F L Pulse Rate 87 Respiratory Rate 20 Blood Pressure 125/65 Pulse Oximetry 99 Intake & Output 08/09/18 08/10/18 08/10/18 18:59 06:59 18:59 Intake Total 120 / 120 197.5 / 197.5 Output Total 400 / 400 Balance 120 / 120 -202.5 / -202.5 Weight 83.1 kg Intake: IV 107.5 / 107.5 Depacon Inj 750 MG In NS Inj 107.5 / 107.5 100 ML @ 105 mls/hr IV.SIG ONCE ONE Rx#:[id number] Oral 120 / 120 90 / 90 Output: Urine 400 / 400 Other: # Voids 6 Date of Last Bowel Movement 08/08/18 08/08/18 # Bowel Movements 0 Narrative: GENERAL: SKIN: Warm and dry. HEAD: Atraumatic. Normocephalic. EYES: Pupils equal and round. No scleral icterus. No injection or drainage. ENT: No nasal bleeding or discharge. Mucous membranes pink and moist. NECK: Trachea midline. No JVD. CARDIOVASCULAR: Regular rate and rhythm. RESPIRATORY: No accessory muscle use. Clear to auscultation. Breath sounds equal bilaterally. GASTROINTESTINAL: Abdomen soft, non-tender, nondistended. Hepatic and splenic margins not palpable. MUSCULOSKELETAL: Extremities without clubbing, cyanosis, or edema. No obvious deformities. NEUROLOGICAL: Awake and alert. No obvious cranial nerve deficits. Motor grossly within normal limits. Five out of 5 muscle strength in the arms and legs. Normal speech. PSYCHIATRIC: Appropriate mood and affect; insight and judgment normal. Results Procedures completed during hospitalization: MRI EEG Carotid doppler 2d echo,ct head Pending studies at discharge: results 2d echo Labs on day of discharge: Labs from last 24 hours 08/10/18 08/09/18 08/09/18 06:11 23:46 17:01 POC Glucose 138 69 114 08/09/18 11:27 POC Glucose 204 - Impressions ITS Impressions Chest X-Ray 08/08/18 15:27 CONCLUSION: No acute intrathoracic disease. No significant change Head CT 08/08/18 15:27 CONCLUSION: 1. Negative for acute process . . Carotid Doppler Study 08/09/18 00:00 CONCLUSION: 1. No hemodynamically significant stenosis in either carotid artery. Head MRI 08/09/18 00:00 CONCLUSION: 1. Mild diffuse periventricular and deep white matter signal abnormalities. Although nonspecific, findings likely reflect small vessel ischemic white matter demyelination. This is slightly more than expected for patient's age. 2. Otherwise, unremarkable MRI examination of the brain. Discharge Plan - Discharge Disposition Patient Disposition: Disch W/Home Health Service - Discharge Condition Condition: Good - Discharge Order Discharge Orders: Discharge Order (Routine); Ordered 08/10/18 Ordered By: Sony Schafer - Discharge Details Anticipated Discharge Date: 08/10/18 - Physicians Team Primary Care Provider: UNKNOWN, Attending Provider: Sony Schafer Other Providers: Blaine Galarza MD ; [facility]
[2018-08-10 13:14] VITALS: BP 144/62; PULSE 89; TEMP 96.3; O2SAT 97
--- NOTE | 2018-08-10 21:03 | ECHRPT ---
Indication: Syncope CONCLUSIONS Mildly dilated left ventricle. Wall thickness is measured at the upper limits of normal. The left ve ntricular systolic function is severely reduced with an estimated ejection fraction in the range of 20-25%. T he basal posterior wall appears to contract normally; all other cabello are moderately to severely hypokinetic. Trace mitral valve regurgitation. BP: / HR: Rhythm: MEASUREMENTS (Male / Female) Normal Values Technical Quality:Fair 2D ECHO LV Diastolic Diameter PLAX 5.3 cm 4.2 - 5.9 / 3.9 - 5.3 cm LV Systolic Diameter PLAX 4.2 cm IVS Diastolic Thickness 1.0 cm 0.6 - 1.0 / 0.6 - 0.9 cm LVPW Diastolic Thickness 1.0 cm 0.6 - 1.0 / 0.6 - 0.9 cm LV Relative Wall Thickness 0.4 RV Internal Dim ED PLAX 2.7 cm LVOT Diameter 2.0 cm Aortic Root Diameter 2.8 cm LA Systolic Diameter LX 3.7 cm 3.0 - 4.0 / 2.7 - 3.8 cm DOPPLER AV Peak Velocity 143.0 cm/s AV Peak Gradient 8.2 mmHg LVOT Peak Velocity 96.7 cm/s LVOT Peak Gradient 3.7 mmHg AV Area Cont Eq pk 2.1 cm Mitral E Point Velocity 75.0 cm/s Mitral A Point Velocity 105.0 cm/s Mitral E to A Ratio 0.7 LV E' Lateral Velocity 9.3 cm/s Mitral E to LV E' Lateral Ratio 8.1 LV E' Septal Velocity 4.0 cm/s Mitral E to LV E' Septal Ratio 18.8 PV Peak Velocity 103.0 cm/s PV Peak Gradient 4.2 mmHg FINDINGS LEFT VENTRICLE Mildly dilated left ventricle. Wall thickness is measured at the upper limits of normal. The left ve ntricular systolic function is severely reduced with an estimated ejection fraction in the range of 20-25%. T he basal posterior wall appears to contract normally; all other cabello are moderately to severely hypokinetic. RIGHT VENTRICLE Normal right ventricular size and systolic function. LEFT ATRIUM The left atrial size is normal. RIGHT ATRIUM The right atrial size is normal. ATRIAL SEPTUM Normal atrial septal thickness without atrial level shunting by limited color doppler interrogation. AORTA The aortic root and proximal ascending aorta are normal in size on limited imaging. MITRAL VALVE Trace mitral valve regurgitation. AORTIC VALVE Trileaflet aortic valve. No aortic valve stenosis or regurgitation. TRICUSPID VALVE Structurally normal tricuspid valve. No tricuspid valve stenosis or regurgitation. PULMONARY VALVE The pulmonary valve is not well visualized. VESSELS The inferior vena cava is normal in size. PERICARDIUM No pericardial effusion. Jose Elias Viera MD (Electronically Signed) Final Date:10 August 2018 21:02
[2018-08-11] MEDS ORDERED: Levothyroxine 50 MCG Tablet PO SCH (06:00)
== END 2018-08-10 12:59 | disposition home health service (06) | DRG 103 ==
LOC: PHED 15:17 → PHEDA 15:17 → PH3 21:05
PROVIDERS: ADMIT Internal Medicine; ATTEND Internal Medicine
CPT/HCPCS: 70450; 70551; 71010; 71045; 80048; 80053; 80061; 81001; 82550; 82948; 82962; 83735; 84443; 84484; 85025; 93005; 93306; 93880; 95819; 97162; 99285; J1815; P9612